=== PATIENT | female | born 1995 | race Caucasian/White ===

== ENCOUNTER → 2018-01-13 17:30 | Outpatient (REF) | payer MEDICAID, SELFPAY ==
[2018-01-19 15:19] LABS: Neisseria gonorrhoeae, NAA Negative (Negative)
== END ==
LOC: LAB 17:30
PROVIDERS: Obstetrics & Gynecology; Visit Provider Nurse Practitioner Obstetrics & Gynecology
DX: Z34.90 Encounter for supervision of normal pregnancy, unspecified, unspecified trimester (principal); Z3A.10 10 weeks gestation of pregnancy
CPT/HCPCS: 87491; 87591

== ENCOUNTER → 2018-02-01 14:57 | Outpatient (CLI) | payer MEDICAID, SELFPAY ==
[2018-02-01 15:20] LABS: Basophils % 0.4 % (0.1-2.0); Eosinophils # 0.1 K/mm3 (0.0-0.4); Eosinophils % 0.8 % (0.1-12.0); Hematocrit 43.8 % (37.0-47.0); Hemoglobin 14.1 g/dL (12.2-16.2); Lymphocytes # 1.3 K/mm3 (0.7-4.5); Lymphocytes % 17.2 K/mm3 (10-50); Mean Corpuscular HGB Conc 32.1 g/dL (31.8-35.4); Mean Corpuscular Hemoglobin 26.9 pg (27.0-31.2); Mean Corpuscular Volume 83.6 fl (81-99); Mean Platelet Volume 8.2 fl (7.4-10.4); Monocytes # 0.4 K/mm3 (0.1-1.0); Neutrophils # 5.9 K/mm3 (1.8-7.8); Neutrophils % 76.7 % (37.0-80.0); Platelet Count 166 K/mm3 (142-424); Red Blood Count 5.24 M/mm3 (4.20-5.40); Red Cell Distribution Width 12.9 % (11.5-17.5); White Blood Count 7.7 K/mm3 (4.8-10.8)
[2018-02-03 08:28] LABS: HIV Screen 4th Generation wRfx Non Reactive (Non Reactive)
[2018-02-03 20:05] LABS: Hepatitis B Surface Antigen Negative (Negative); Hepatitis C Antibody <0.1 s/co ratio (0.0-0.9); Rapid Plasma Reagin Ab Titer Non Reactive (NonRea<1:1); Rubella Antibodies, IgG 1.68 index (Immune >0.99)
== END ==
PROVIDERS: Visit Provider Obstetrics & Gynecology
DX: Z3A.10 10 weeks gestation of pregnancy (principal)
CPT/HCPCS: 36415; 85025; 86592; 86703; 86762; 86850; 87340; 87380; G0432

== ENCOUNTER → 2018-03-28 12:52 | Outpatient (CLI) | payer MEDICAID, SELFPAY ==
--- NOTE | 2018-03-28 12:54 | US_ITS ---
US OB /maternal detail: INDICATION: ITS.REASON: US OB Complete ORDERING PHYSICIAN: Paula Perez MD PATIENT AGE: 22 years TECHNIQUE: ultrasound transabdominal scanning. COMPARISON: No previous relevant studies. FINDINGS: Single viable intrauterine gestation. Cephalic position. Placenta: Posterior placenta grade 1. There is average amount fluid. The cervix appears satisfactory. Closed and measuring 5 cm in length. Complete survey performed and was unremarkable on the submitted images as in PACS. No discrete anomalies identified on survey imaging by technologist. Active fetus. Three-vessel cord with satisfactory umbilical cord insertion. 4- chamber heart noted. Survey of brain & ventricles unremarkable. Face and neck survey unremarkable. Diaphragm and chest views unremarkable. Abdomen: Both kidneys noted and unremarkable. Stomach noted and satisfactory. Spine: Survey of the spine satisfactory with no anomalies identified nor imaged. Both arms and legs noted. Amniotic Fluid: Adequate. Maternal adnexa: No significant findings. Measurements: Average ultrasound age 20w5d. Gestational Age 20w5d. Estimated due date by ultrasound age 0311/03/2017. Estimated weight 364 grams. BPD = 20w3d OFD = 21w5d HC = 20w4d AC = 20w5d FL = 20w5d Growth Percentile= 38 percentile Heart Rate = 143 Cerebellum = 20w6d Humerus = 22w0d HC/AC is 1.17 (1.09-1.26). CI is 73% (70-86%). FL/BPD is 71%. FL/AC is 22%. IMPRESSION: There is a single live fetus in cephalic presentation. Average ultrasound age is 20 weeks and 5 days. All parameters correlate with no obvious anomalies. Please see above for detail
== END ==
PROVIDERS: PCP Nurse Practitioner Family; Visit Provider Obstetrics & Gynecology
DX: Z36.0 Encounter for antenatal screening for chromosomal anomalies (principal)
CPT/HCPCS: 76811

== ENCOUNTER → 2018-06-26 12:43 | Outpatient (CLI) | payer OTHER, SELFPAY ==
--- NOTE | 2018-06-26 12:46 | US_ITS ---
US OB follow up: INDICATION: ITS.REASON: US OB Growth- Large for Dates ORDERING PHYSICIAN: Paula Perez MD PATIENT AGE: 22 years COMPARISON: 03/28/2018 TECHNIQUE: ultrasound transabdominal scanning. . FINDINGS: Single viable intrauterine gestation. Cephalic position. Placenta: Posterior placenta grade . There is average amount fluid. The cervix appears satisfactory. Closed and measuring 4.7 cm in length. Measurements: Average ultrasound age 35 weeks 1 day. Gestational Age 33 weeks 4 days. Estimated due date by ultrasound age 1207/30/2018. Estimated weight 2535 g grams.. This is 81 percentile BPD = 35 weeks 4 days OFD = 37 weeks 3 days HC = 35 weeks 5 days AC = 35 weeks 2 days FL = 33 weeks 4 days Growth Percentile= 81 percentile Heart Rate = 135 HC/AC is 1.01. CI is 78%. FL/BPD is 74%. FL/AC is 21%. IMPRESSION: There is a single live fetus present which is in cephalic presentation. Average ultrasound age is 35 weeks 1 day with an estimated weight of 2535 g which is 81 percentile. No obvious anomalies. All parameters correlate. Please see above for detail
== END ==
PROVIDERS: Visit Provider Obstetrics & Gynecology
DX: O36.60X0 Maternal care for excessive fetal growth, unspecified trimester, not applicable or unspecified (principal)
CPT/HCPCS: 76816

== ENCOUNTER → 2018-07-13 15:07 | Outpatient (CLI) | payer OTHER, SELFPAY | PROVIDERS: Visit Provider Obstetrics & Gynecology | DX: Z34.90 Encounter for supervision of normal pregnancy, unspecified, unspecified trimester (principal) | CPT/HCPCS: 86403 ==

== ENCOUNTER 2018-07-17 00:36 | Outpatient (CLI) | payer OTHER, SELFPAY ==
[2018-07-17 00:49] VITALS: BMI 32.5
[2018-07-17 01:01] VITALS: BP 129/72; PULSE 76; RESP 18; TEMP 36.4; O2SAT 100; BMI 32.5
[2018-07-17 01:24] LABS: Microscopic, Urine URINE MICROSCOPIC (MICROSCOPIC)
[2018-07-17 01:25] LABS: Appearance,Urine CLEAR (Clear); Bilirubin,Urine Negative (Negative); Blood, Urine Negative (Negative); Color,Urine YELLOW (Yellow); Glucose,Urine (UA) Negative (Negative); Ketones,Urine Negative (Negative); Leukocyte Esterase,Urine 1+ (Negative); Nitrate,Urine Negative (Negative); Protein,Urine Negative (Negative); Specific Gravity, Urine 1.015 (1.005-1.030); Urobilinogen,Urine 0.2 EU/dl (0.2)
[2018-07-17 01:55] LABS: Bacteria,Urine 2+ /lpf
== END 2018-07-17 01:55 | disposition home or self-care (01) ==
LOC: OBOUT 00:40 → OB 00:41
PROVIDERS: Referring Provider Obstetrics & Gynecology; Visit Provider Obstetrics & Gynecology
DX: O26.893 Other specified pregnancy related conditions, third trimester (principal); Z3A.35 35 weeks gestation of pregnancy; M79.89 Other specified soft tissue disorders; R60.0 Localized edema
CPT/HCPCS: 59025; 81001; 87086

== ENCOUNTER → 2018-07-26 10:50 | Outpatient (CLI) | payer OTHER, SELFPAY ==
[2018-07-26 11:43] LABS: Basophils % 0.3 % (0.1-2.0); Eosinophils # 0.1 K/mm3 (0.0-0.4); Eosinophils % 0.7 % (0.1-12.0); Hematocrit 34.4 % (37.0-47.0); Hemoglobin 11.1 g/dL (12.2-16.2); Lymphocytes # 2.3 K/mm3 (0.7-4.5); Lymphocytes % 19.6 % (10-50); Mean Corpuscular HGB Conc 32.4 g/dL (31.8-35.4); Mean Corpuscular Hemoglobin 26.5 pg (27.0-31.2); Mean Corpuscular Volume 81.9 fl (81-99); Mean Platelet Volume 10.4 fl (7.4-10.4); Monocytes # 0.5 K/mm3 (0.1-1.0); Monocytes % 4.3 % (1.7-9.3); Neutrophils # 8.8 K/mm3 (1.8-7.8); Neutrophils % 75.1 % (37.0-80.0); Platelet Count 171 K/mm3 (142-424); Red Cell Distribution Width 14.2 % (11.5-17.5); White Blood Count 11.7 K/mm3 (4.8-10.8)
[2018-07-26 12:12] LABS: Activated Partial Thrombo Time 22.9 seconds (23.6-34.0); Fibrinogen 486 mg/dL (204-500); INR 0.91 (0.9-1.1); Prothrombin Time 9.4 seconds (9.4-11.8)
[2018-07-26 12:49] LABS: D-Dimer 1920 ng/mL (0-400)
[2018-07-26 14:25] LABS: Alanine Aminotransferase 17 U/L (12-78); Anion Gap 15.1 mEq/L (5-15); Aspartate Amino Transferase 15 U/L (15-37); Blood Urea Nitrogen 4 mg/dL (7-18); Calcium 8.8 mg/dL (8.5-10.1); Carbon Dioxide 23 mmol/L (21.0-32.0); Chloride 105 mmol/L (98-107); Creatinine,Serum 0.62 mg/dL (0.55-1.02); Estimated Glomerular Filt Rate 120 ml/min (>60); GFR (African American) 146 ML/MIN (>60); Glucose 82 mg/dL (74-106); Potassium 3.1 mmoL/L (3.5-5.1); Sodium 140 mmol/L (136-145); Uric Acid 4.3 mg/dL (2.6-7.2)
== END ==
PROVIDERS: Visit Provider Obstetrics & Gynecology
DX: Z34.90 Encounter for supervision of normal pregnancy, unspecified, unspecified trimester (principal)
CPT/HCPCS: 36415; 80048; 84450; 84460; 84550; 85025; 85378; 85384; 85610; 85730

== ENCOUNTER 2018-07-28 11:10 | Inpatient (IN) ==
[2018-07-28 15:16] LABS: Microscopic, Urine URINE MICROSCOPIC (MICROSCOPIC)
[2018-07-28 15:18] LABS: Appearance,Urine CLEAR (Clear); Bilirubin,Urine Negative (Negative); Blood, Urine Negative (Negative); Color,Urine YELLOW (Yellow); Glucose,Urine (UA) Negative (Negative); Ketones,Urine Negative (Negative); Leukocyte Esterase,Urine 1+ (Negative); Protein,Urine Negative (Negative); Urobilinogen,Urine 0.2 EU/dl (0.2)
[2018-07-28 15:35] LABS: Bacteria,Urine 2+ /lpf
[2018-07-28 15:43] LABS: Basophils % 0.2 % (0.1-2.0); Eosinophils # 0.1 K/mm3 (0.0-0.4); Eosinophils % 0.4 % (0.1-12.0); Hematocrit 33.7 % (37.0-47.0); Hemoglobin 10.9 g/dL (12.2-16.2); Lymphocytes # 1.7 K/mm3 (0.7-4.5); Lymphocytes % 14.7 % (10-50); Mean Corpuscular HGB Conc 32.2 g/dL (31.8-35.4); Mean Corpuscular Hemoglobin 26.5 pg (27.0-31.2); Mean Corpuscular Volume 82.3 fl (81-99); Mean Platelet Volume 11.9 fl (7.4-10.4); Monocytes # 0.5 K/mm3 (0.1-1.0); Monocytes % 4.6 % (1.7-9.3); Neutrophils # 9.3 K/mm3 (1.8-7.8); Neutrophils % 80.1 % (37.0-80.0); Platelet Count 148 K/mm3 (142-424); Red Blood Count 4.09 M/mm3 (4.20-5.40); Red Cell Distribution Width 14.2 % (11.5-17.5); White Blood Count 11.6 K/mm3 (4.8-10.8)
[2018-07-28 15:56] LABS: Anion Gap 14.8 mEq/L (5-15)
[2018-07-28 15:58] LABS: Potassium 2.8 mmoL/L (3.5-5.1)
[2018-07-28 15:59] LABS: Activated Partial Thrombo Time 22.9 seconds (23.6-34.0); INR 0.91 (0.9-1.1); Prothrombin Time 9.4 seconds (9.4-11.8)
[2018-07-28 16:42] LABS: Patient Weight,Urine 192.5946 lbs
[2018-07-28 17:37] LABS: Creatinine Clearance Urine 136.1 mL/min (25-115)
[2018-07-29 11:27] LABS: Albumin Level 2.1 gm/dL (3.4-5.0); Albumin/Globulin Ratio 0.6 (1.1-1.8); Anion Gap 14.2 mEq/L (5-15); Bilirubin,Total 0.3 mg/dL (0.2-1.0); Globulin 3.5 gm/dl (1.3-3.2); Potassium 3.2 mmoL/L (3.5-5.1); Total Protein,Serum 5.6 gm/dL (6.4-8.2)
--- NOTE | 2018-07-29 16:40 | History & Physical Report ---
OB - H&P: HPI Antepartum - History of Present Illness Chief complaint: Hypertension History of present illness: 22 yo G1 presented @ 38 1/7 after checking BP at outpatient pharmacy and obtaining elevated readings 140-150/90s Denied HESS, visual changes or epigastric/RUQ pain BP had been elevated in office 2 days earlier and she had been instructed to collect 24 hr urine and have PIH labs drawn; urine result was still pending at time of presentation to triage BP elevated 140-150/80-90 in triage upon presentation She was admitted for observation and monitoring while awaiting lab results, and started on labetolol 100 BID No new complaints today; BP has been improved but still occasionally elevated on labetolol Urine protein >400mg and she is advised that induction of labor is indicated at this gestational age with diagnosis of mild preeclampsia Cervix 2/80% - History of Present care: good care Obstetrical complications: preeclampsia [facility] History I have reviewed the patient's past medical history: Yes Medical History: Denies:: Anxiety, Depression, Diabetes Mellitus Type 1, Hypertension, Migraine, MRSA, Seizures Other Surgeries: Yes: Appendectomy, Cholecystectomy. No: Amputation: No Fractures: No - *Social History Smoking Status: Never smoker Alcohol Intake: never Substance Use Type: denies use - Psychiatric History Pschychiatric History:: Denies:: Anxiety, Depression *Family Hx:: No significant family history Para: 0 Review of Systems - Review of Systems CONSTITUTIONAL: no fever/chills HEENT: no visual changes PULMONARY: no shortness of breath or difficulty breathing CV: no racing heart, palpitations or chest pain ABD: no abdominal pain, N/V : intermittent contractions SKIN: no new rash or skin lesions EXT: + LE edema NEURO: no HESS PSYCH: no current anxiety/depression OB: normal FM Meds Home Medications Medication Instructions Recorded Confirmed Type multivitamin with minerals-folic 200 mcg PO DAILY 01/13/18 07/29/18 History acid 200 mcg chewable tablet Allergies Allergy/AdvReac Type Severity Reaction Status Date / Time No Known Allergies Allergy Verified 07/26/18 08:51 OB - H&P: Exam - Physical Exam Vital signs: Temp Pulse Resp BP Pulse Ox 98.4 F 97 H 20 145/95 H 100 07/28/18 15:30 07/28/18 15:30 07/28/18 15:30 07/28/18 15:30 07/28/18 15:30 Narrative: CONSTITUTIONAL: no acute distress HEENT: mucous membranes moist PULMONARY: breathing unlabored without audible wheezes CV: no tachycardia or visible JVD; normal LE peripheral pulses ABD: soft, NT/ND, no guarding : cervix 2/80% SKIN: no visible rash or lesions EXT: 2+ edema LEs NEURO: alert/oriented, no altered mental status. 2+ DTRs PSYCH: appropriate mood and demeanor without visible anxiety/depression OB - Results - Labs Labs: BMP 07/28/18 07/29/18 15:33 11:05 Sodium 141 Potassium 3.2 L Chloride 106 Carbon Dioxide 24 BUN 4 L D Creatinine 0.56 0.63 Glucose 90 Calcium 9.0 Liver Function 07/29/18 Range/Units 11:05 Total Bilirubin 0.3 (0.2-1.0) mg/dL AST 9 L D (15-37) U/L ALT 15 (12-78) U/L Alkaline Phosphatase 138 H (46-116) U/L Albumin 2.1 L (3.4-5.0) gm/dL - Imaging and Cardiology nst Status: image reviewed by me Additional comments: NST: Basline: 140 Variability: moderate Accelerations: yes Decelerations: no Impression: Reactive, Category 1 OB - A/P Antepartum (1) with 38 completed weeks gestation Current visit: Yes Status: Acute (2) Pre-eclampsia, mild Current visit: Yes Status: Acute (3) LGA (large for gestational age) fetus Problem details: 81% Current visit: No Status: Acute - Additional Plan Additional Information:: Admission with IOL Begin Pitocin protocol 4am Epidural at patient request for pain management in labor Continue monitoring BP NST 2x/day currently Continuous monitoring at onset of pitocin induction
--- NOTE | 2018-07-30 18:32 | Progress Note ---
Labor Note - Subjective: Date: 07/30/18 Time: 17:30 irregular contractions Comment:: mild - Objective: NST:: Reactive Contractions:: infrequent Cervical Dilation:: 2 Effacement:: 70% Station: -2 Membranes: intact Comment:: Max catheter placed through cervix into lower uterus and filled with 50cc normal saline Pulled taught against cervix and taped to patient's inner thigh - Fetus: Monitoring?: Yes monitoring type:: External - Assessment: Patient Problems: All Active Problems with 38 completed weeks gestation (Acute) Pre-eclampsia, mild (Acute) LGA (large for gestational age) fetus (Acute) (Acute) - Plan: Comment:: Continue max catheter for mechanical distention, in combination with cervidil prostaglandin ripening overnight plan to resume pitocin augmentation in am
--- NOTE | 2018-07-31 08:41 | Progress Note ---
Labor Note - Subjective: Date: 07/31/18 Time: 08:46 irregular contractions Comment:: Gonsalves bulb came out 2am Cervix 4cm this am; pitocin restarted and currently at 9mU - Objective: NST:: Reactive Contractions:: every 4-5 minutes Cervical Dilation:: 4 Effacement:: 80% Station: -1 Membranes: ruptured Comment:: AROM with clear fluid; IUPC placed without difficulty - Fetus: monitoring type:: Internal and External - Assessment: Labor progressing?: Yes Patient Problems: All Active Problems with 38 completed weeks gestation (Acute) Pre-eclampsia, mild (Acute) LGA (large for gestational age) fetus (Acute) (Acute) - Plan: Comment:: Continue pitocin augmentation S/P AROM status reassuring; continue continuous monitoring Epidural at request for pain management Anticipate
--- NOTE | 2018-07-31 09:18 | Progress Note ---
[facility] Anesthesia Checklist - Structural Data Admitted From: Inpatient Planned Operative Procedure/s: labor epidural Consent for Planned Operative Procedure(s) Verified: Yes - Airway Assessment C-Spine Mobility Assessed: Yes TMJ Mobility Assessed: Yes Dentition: Good Dentition - Neurological Assessment Level of Consciousness: Awake, Alert, Appropriate - Anesthesia Plan Anesthesia Risk discussed: Yes Anesthesia Plan: Verified ASA Class: II Anesthesia Type: Epidural [facility] History I have reviewed the patient's past medical history: Yes Medical History: Denies:: Anxiety, Depression, Diabetes Mellitus Type 1, Hypertension, Migraine, MRSA, Seizures Other Surgeries: Yes: Appendectomy, Cholecystectomy. No: Amputation: No Fractures: No - *Social History Smoking Status: Never smoker Alcohol Intake: never Substance Use Type: denies use - Psychiatric History Pschychiatric History:: Denies:: Anxiety, Depression *Family Hx:: No significant family history Para: 0
--- NOTE | 2018-07-31 17:27 | Procedure Note ---
- Delivery Note Delivery Date:: 07/31/18 Delivery Time:: 17:00 Anesthesia Type: Epidural Was labor medically induced?: Yes Induction method: per pitocin protocol Gestational age (weeks): 38 delivered prior to 39 weeks?: Yes Justification for early elective delivery:: Pre-eclampsia Gender: Male at 1 minute: 6 at 5 minutes: 7 Delivery Procedure:: Spontaneous vaginal delivery of liveborn male infant over intact perineum. Apgars: 6 & 7 Delivery uncomplicated; no nuchal cord or shoulder dystocia with delivery placed immediately on maternal abdomen for nursing assessment with intention of NATALIE immediately after umbilical cord clamped/cut, however infant was taken immediately to warmer for nursing assessment after cord cut due to decreased tone & color Placenta spontaneously expressed and examined; noted to be complete/intact Vulva, vagina, and cervix inspected; bilateral periurethral lacerations noted and repaired with 3-0 vicryl for hemostasis. EBL: 300cc All sponge/needle/instrument counts correct at conclusion of procedure Disposition: Mom/baby stable to recovery in LDRP Laceration:: labial Placental Delivery Description: Spontaneous
[2018-08-01 06:34] LABS: Hematocrit 27.9 % (37.0-47.0); Hemoglobin 9.4 g/dL (12.2-16.2)
--- NOTE | 2018-08-01 15:38 | Progress Note ---
Internal Medicine - PN: Subj *Date: 08/01/18 *Time: 15:35 Interval history: PPD #1 No complaints Stan reg diet, ambulating and voiding without difficulty Asymptomatic with acute on chronic anemia (10.9 admission, 9.4 PPD #1) BP intermittently mildly elevated but stable Pain control sufficient Exam Vital signs and Labs for Last 24 Hours: Temp Pulse Resp BP Pulse Ox 98.4 F 97 H 20 145/95 H 100 07/28/18 15:30 07/28/18 15:30 07/28/18 15:30 07/28/18 15:30 07/28/18 15:30 Laboratory Results - last 24 hr 08/01/18 06:04: Hgb 9.4 L, Hct 27.9 L Narrative: CONSTITUTIONAL: no acute distress HEENT: mucous membranes moist PULMONARY: breathing unlabored without audible wheezes CV: no tachycardia or visible JVD; normal LE peripheral pulses ABD: soft, NT/ND, no guarding : fundus firm at/below umbilicus SKIN: no visible rash or lesions EXT: 1+ edema LEs NEURO: alert/oriented, no altered mental status PSYCH: appropriate mood and demeanor without visible anxiety/depression Assessment and Plan (1) with 38 completed weeks gestation Current visit: Yes Status: Acute Category: Medical Code(s): Z3A.38 - 38 weeks gestation of (2) Vaginal delivery Current visit: Yes Status: Acute Category: Medical Code(s): O80 - Encounter for full-term uncomplicated delivery (3) Pre-eclampsia, mild Current visit: Yes Status: Acute Category: Medical Code(s): O14.00 - Mild to moderate pre-eclampsia, unspecified trimester (4) LGA (large for gestational age) fetus Problem details: 81% Current visit: No Status: Acute Category: Medical (5) Anemia complicating Current visit: Yes Status: Acute Category: Medical Code(s): O99.019 - Anemia complicating , unspecified trimester (6) Anemia due to acute blood loss Current visit: Yes Status: Acute Category: Medical Code(s): D62 - Acute posthemorrhagic anemia - Assessment and plan all Dx Assessment and Plan for all problems:: Continue routine care Hold BP meds at this time Supplemental FeSO4 for anemia Anticipate discharge tomorrow
[2018-08-02 11:20] VITALS: BP 137/86
--- NOTE | 2018-08-02 12:47 | Discharge Summary ---
DS: Providers Date of admission: 07/28/18 16:31 Primary care physician: Referral Provider, Attending physician on admission: Paula Perez Attending physician on discharge: Paula Perez Anticipated date of discharge: 08/02/18 DS: Diagnosis - Discharge Diagnosis (1) with 38 completed weeks gestation Status: Acute (2) Vaginal delivery Status: Acute (3) Pre-eclampsia, mild Status: Acute (4) LGA (large for gestational age) fetus Status: Acute Problem details: 81% (5) Anemia complicating Status: Acute (6) Anemia due to acute blood loss Status: Acute DS: Medications - Discharge Medications Prescriptions: New Ibuprofen [Motrin 400mg tablet] 400 mg PO Q4HP PRN tablet PRN Reason: Moderate Pain Continue multivitamin with minerals-folic acid 200 mcg chewable tablet 200 mcg PO DAILY OB - DS: Summary Hospital course: Ms. Craig is a 22 year old female Time spent discussing smoking cessation with patient: 3 to 10 minutes - Peripartum Data Delivery method: spontaneous vaginal delivery Laceration description: Periurethral - 1st Degree complications: none - Status at Discharge Cognitive/behavioral status at discharge: normal/appropriate Functional status at discharge: independent ambulation - Time Spent with Patient Total time spent providing and/or coordinating discharge services: Less than 30 minutes Exam Vital signs and Labs for Last 24 Hours: Temp Pulse Resp BP Pulse Ox 98.2 F 79 20 137/86 100 08/02/18 08:00 08/02/18 08:00 08/02/18 08:00 08/02/18 08:00 07/28/18 15:30 Narrative: CONSTITUTIONAL: no acute distress HEENT: mucous membranes moist PULMONARY: breathing unlabored without audible wheezes CV: no tachycardia or visible JVD; normal LE peripheral pulses ABD: soft, NT/ND, no guarding : fundus firm at/below umbilicus SKIN: no visible rash or lesions EXT: 1+ edema LEs NEURO: alert/oriented, no altered mental status PSYCH: appropriate mood and demeanor without visible anxiety/depression Discharge Plan - Patient Discharge Instructions ACTIVITY: Continue current activity DIET: regular diet Patient Instructions: Depression, Hemorrhage, [facility] Post Discharge Instructions - Follow up Plan Follow up with: Paula Perez MD [Staff Physician] - 09/13/18 10:30 am Home Medications: Home Medications Medication Instructions Recorded Confirmed Type multivitamin with minerals-folic 200 mcg PO DAILY 01/13/18 07/29/18 History acid 200 mcg chewable tablet Prescriptions/Medication Reconciliation: No Action multivitamin with minerals-folic acid 200 mcg chewable tablet 200 mcg PO DAILY
== END 2018-08-02 13:40 | disposition home or self-care (01) ==
LOC: LAB 11:10 → OB 11:10 → OBSVTOIN 16:31
PROVIDERS: ADMIT Obstetrics & Gynecology; ATTEND Obstetrics & Gynecology

== ENCOUNTER → 2018-09-13 15:13 | Outpatient (CLI) | payer OTHER, SELFPAY ==
[2018-09-13 15:42] LABS: HCG,Quantitative 0 mIU/mL
== END ==
PROVIDERS: Visit Provider Obstetrics & Gynecology
DX: Z32.00 Encounter for pregnancy test, result unknown (principal); Z39.2 Encounter for routine postpartum follow-up
CPT/HCPCS: 36415; 84702

== ENCOUNTER → 2019-03-15 15:24 | Outpatient (CLI) | payer OTHER, SELFPAY ==
--- NOTE | 2019-03-15 15:31 | US_ITS ---
US transvaginal HISTORY: Pelvic pain and cramping, painful intercourse ITS.REASON: US T/V- Pelvic Pain ORDERING PHYSICIAN: Paula Perez MD PATIENT AGE: 23 years Comparison: None FINDINGS: The uterus is 6 x 4 x 5 cm with a combined endometrial thickness of 7 mm. The uterus is retroverted. No obvious uterine mass. The left ovary is 3 x 1.8 cm with a volume of 9 mL's. There are multiple small follicles present. The right ovary is 3.6 x 2.3 cm with a volume of 13 mL's. Multiple small follicles are present. No cul-de-sac fluid is evident. IMPRESSION: Polycystic appearance of the ovaries otherwise negative pelvic ultrasound
== END ==
PROVIDERS: Visit Provider Obstetrics & Gynecology
DX: R10.2 Pelvic and perineal pain (principal)
CPT/HCPCS: 76830

== ENCOUNTER → 2019-05-22 16:13 | Outpatient (CLI) | payer OTHER, SELFPAY ==
[2019-05-22 17:21] LABS: HCG,Quantitative 50117 mIU/mL
== END ==
PROVIDERS: Visit Provider Nurse Practitioner Obstetrics & Gynecology
DX: Z34.90 Encounter for supervision of normal pregnancy, unspecified, unspecified trimester (principal)
CPT/HCPCS: 36415; 84702

== ENCOUNTER → 2019-06-20 17:34 | Outpatient (CLI) | payer OTHER, SELFPAY ==
[2019-06-20 19:22] LABS: Basophils % 0.2 % (0.1-2.0); Eosinophils % 0.6 % (0.1-12.0); Hematocrit 42.5 % (37.0-47.0); Lymphocytes # 1.7 K/mm3 (0.7-4.5); Mean Corpuscular Hemoglobin 27.6 pg (27.0-31.2); Mean Corpuscular Volume 83.6 fl (81-99); Mean Platelet Volume 8.8 fl (7.4-10.4); Monocytes # 0.3 K/mm3 (0.1-1.0); Monocytes % 3.8 % (1.7-9.3); Neutrophils # 5.8 K/mm3 (1.8-7.8); Neutrophils % 74.4 % (37.0-80.0); Platelet Count 199 K/mm3 (142-424); Red Blood Count 5.08 M/mm3 (4.20-5.40); Red Cell Distribution Width 14.7 % (11.5-17.5); White Blood Count 7.8 K/mm3 (4.8-10.8)
[2019-06-22 08:28] LABS: HIV Screen 4th Generation wRfx Non Reactive (Non Reactive); Hepatitis B Surface Antigen Negative (Negative); Hepatitis C Antibody <0.1 s/co ratio (0.0-0.9); Rubella Antibodies, IgG 2.03 index (Immune >0.99)
[2019-06-22 17:16] LABS: Rapid Plasma Reagin Ab Titer Non Reactive (NonRea<1:1)
== END ==
PROVIDERS: Visit Provider Obstetrics & Gynecology
DX: Z34.90 Encounter for supervision of normal pregnancy, unspecified, unspecified trimester (principal)
CPT/HCPCS: 36415; 85025; 86592; 86703; 86762; 86850; 87340; 87380; G0432

== ENCOUNTER → 2019-06-27 16:56 | Outpatient (CLI) | payer OTHER, SELFPAY | PROVIDERS: Visit Provider Obstetrics & Gynecology | DX: Z34.90 Encounter for supervision of normal pregnancy, unspecified, unspecified trimester (principal) | CPT/HCPCS: 36415 ==

== ENCOUNTER → 2019-08-23 12:48 | Outpatient (CLI) | payer OTHER, SELFPAY ==
--- NOTE | 2019-08-23 12:48 | US_ITS ---
PROCEDURE: US OB /MATERNAL DETAIL CLINICAL INDICATION: US OB Complete COMPARISON: [facility] US OB follow up from 06/26/2018 FINDINGS: Single viable intrauterine gestation. Cephalic position. Placenta: Anteriorplacenta grade 1. There is average amount fluid. The cervix appears satisfactory. Closed and measuring 3 cm in length. Complete survey performed and was unremarkable on the submitted images as in PACS. No discrete anomalies identified on survey imaging by technologist. Active fetus. Three-vessel cord with satisfactory umbilical cord insertion. 4- chamber heart noted. Survey of brain & ventricles Unremarkable. Face and neck survey unremarkable. Diaphragm and chest views unremarkable. Abdomen: Both kidneys noted and unremarkable. Stomach noted and satisfactory. Spine: Survey of the spine satisfactory with no anomalies identified nor imaged. Both arms and legs noted. Amniotic Fluid: Adequate. Maternal adnexa: No significant findings. Measurements: Average ultrasound age 19weeks 6days. Gestational Age 19 weeks 3 days Estimated due date by ultrasound age 0501/11/2020. Estimated weight 297g BPD = 20weeks 2days OFD = 20 weeks 6 days HC = 19weeks 6days AC = 19weeks 5days FL = 19weeks 2days Growth Percentile= 51% Heart Rate = 143bpm Cerebellum = 20weeks Humerus = 19weeks 3days HC/AC is 1.21 CI is 0.76 FL/BPD is 0.63 FL/AC is 0.21 IMPRESSION: There is a single live fetus which is in cephalic presentation with an average ultrasound age of 19 weeks 6 days. All parameters correlate with no obvious anomalies. Please see above for detail Dictated by: Dougie Murrell MD 08/23/2019 18:43 Electronically signed by Dougie Murrell MD in [facility] 08/23/2019 18:43
== END ==
PROVIDERS: Visit Provider Obstetrics & Gynecology
DX: Z36.0 Encounter for antenatal screening for chromosomal anomalies (principal)
CPT/HCPCS: 76811

== ENCOUNTER → 2019-10-01 08:11 | Outpatient (CLI) | payer OTHER, SELFPAY ==
[2019-10-01 08:42] LABS: Glucose,Fasting 87 mg/dL (60-105)
[2019-10-01 10:08] LABS: Glucose 1 Hour 141 mg/dL (74-106)
== END ==
PROVIDERS: Visit Provider Obstetrics & Gynecology
DX: Z34.90 Encounter for supervision of normal pregnancy, unspecified, unspecified trimester (principal)
CPT/HCPCS: 36415; 82951

== ENCOUNTER → 2019-12-11 16:50 | Outpatient (CLI) | payer OTHER, SELFPAY | PROVIDERS: Visit Provider Obstetrics & Gynecology | DX: Z34.90 Encounter for supervision of normal pregnancy, unspecified, unspecified trimester (principal) | CPT/HCPCS: 86403 ==

== ENCOUNTER 2020-01-01 05:14 | Inpatient (IN) | payer BC, MEDICAID, SELFPAY ==
[2020-01-01 05:23] VITALS: BMI 31.0
[2020-01-01 06:02] LABS: Microscopic, Urine URINE MICROSCOPIC (MICROSCOPIC)
[2020-01-01 06:09] LABS: Basophils % 0.2 % (0.1-2.0); Eosinophils % 0.4 % (0.1-12.0); Hematocrit 30.2 % (37.0-47.0); Hemoglobin 9.8 g/dL (12.2-16.2); Lymphocytes # 1.7 K/mm3 (0.7-4.5); Lymphocytes % 19.9 % (10-50); Mean Corpuscular HGB Conc 32.3 g/dL (31.8-35.4); Mean Corpuscular Hemoglobin 25.6 pg (27.0-31.2); Mean Corpuscular Volume 79.2 fl (81-99); Mean Platelet Volume 9.8 fl (7.4-10.4); Monocytes # 0.4 K/mm3 (0.1-1.0); Monocytes % 4.7 % (1.7-9.3); Neutrophils # 6.5 K/mm3 (1.8-7.8); Neutrophils % 74.9 % (37.0-80.0); Platelet Count 172 K/mm3 (142-424); Red Blood Count 3.82 M/mm3 (4.20-5.40); Red Cell Distribution Width 14.9 % (11.5-17.5); White Blood Count 8.6 K/mm3 (4.8-10.8)
[2020-01-01 06:16] LABS: Appearance,Urine CLEAR (Clear); Bilirubin,Urine Negative (Negative); Blood, Urine Negative (Negative); Color,Urine YELLOW (Yellow); Glucose,Urine (UA) Negative (Negative); Ketones,Urine Negative (Negative); Leukocyte Esterase,Urine 1+ (Negative); Nitrate,Urine Negative (Negative); Protein,Urine Negative (Negative); Specific Gravity, Urine 1.015 (1.005-1.030); Urobilinogen,Urine 0.2 EU/dl (0.2)
[2020-01-01 06:30] LABS: Barbiturates Screen,Urine Negative ng/ml (<200); Benzodiazepines Screen,Urine Negative ng/ml (<200)
[2020-01-01 06:31] LABS: Amphetamine/Metha Screen,Urine Negative ng/ml (<1000)
[2020-01-01 06:32] LABS: Cannabinoid Screen,Urine Negative ng/ml (<50); Cocaine Screen,Urine Negative ng/ml (<300)
[2020-01-01 06:33] LABS: Methadone Screen,Urine Negative ng/ml (<300); Opiate Screen,Urine Negative ng/ml (<300)
[2020-01-01 06:34] LABS: Phencyclidine Screen,Urine Negative ng/ml (<25)
[2020-01-01 06:40] VITALS: BP 144/95; PULSE 66; RESP 18; TEMP 36.7; O2SAT 98; BMI 31.0
[2020-01-01 06:42] LABS: Amorphous Sediment,Urine Trace /lpf; Bacteria,Urine 1+ /lpf
--- NOTE | 2020-01-01 09:03 | HMH.PHAINT ---
MEDICATION RECONCILIATION COMPLETED ON PATIENT USING EXTERNAL FILL HISTORY FROM PHARMACY. -WILLIE HWANG, KAMID
--- NOTE | 2020-01-01 09:38 | P.PN_ITS ---
[facility] Anesthesia Checklist - Patient Identification Patient Identification: Arm Band, Verbal (Name & ) - Structural Data Admitted From: Home Planned Operative Procedure/s: Labor epidural Consent for Planned Operative Procedure(s) Verified: Yes Verified Documents: Surgical Consent, History and Physical - Chart Verification Results Verified: CBC, BMP - Additional verifications Patient : Yes Anesthesia Reactions: No Hx Blood Transfusions: No Blood Transfusion Reaction: No - Airway Assessment C-Spine Mobility Assessed: Yes TMJ Mobility Assessed: Yes Dentition: Good Dentition - Neurological Assessment Level of Consciousness: Awake, Alert, Appropriate, Follows Commands Hx Seizures: No Numbness or tingling in extremities: No - Anesthesia Plan Anesthesia Risk discussed: Yes Anesthesia Plan: Verified ASA Class: II Anesthesia Type: Epidural [facility] History I have reviewed the patient's past medical history: Yes Medical History: Denies:: Anxiety, Cancer, Depression, Diabetes Mellitus Type 1, Diabetes Mellitus Type 2, Hypertension, Internal Pacemaker, Migraine, MRSA, Seizures *Have you ever received a pneumonia vaccine?: No *Have you received a flu vaccine this season?: Yes (05/2019) Other Medical History: Denies: Blood Transfusion Reaction Anesthesia experience/problems:: none Other Surgeries: Yes: Appendectomy, Cholecystectomy, Diagnostic Lap. No: C-se ction, Pacemaker Amputation: No Fractures: No - *Social History Smoking Status: Never smoker Alcohol Intake: never Substance Use Type: denies use *Occupational Status:: employed Housing: house *Travel in the last 8 weeks: None - Psychiatric History Pschychiatric History:: Denies:: Anxiety, Depression Family Hx:: No significant family history Para: 1
--- NOTE | 2020-01-01 14:06 | CARE MANAGER ---
Contacted [facility] to see if authorization was required. Could not get a payroll representative on the phone as it said the member ID was not recognized. Attempted to fax for authorization but fax number was not working. According to provider manual it states precertification is not required for maternity admissions, including . RHONA Brunner
--- NOTE | 2020-01-01 15:51 | HMH.LABNOT ---
Labor Note - Subjective: Date: 01/01/20 Time: 09:51 Comment:: IOL 38 wks gestational hypertension regular contractions, comfortable with epidural NST reactive AROM, clear fluid IUPC placed without difficulty or complication - Assessment: Patient Problems: All Active Problems Anemia complicating (Acute) Gestational hypertension (Acute) 38 weeks gestation of (Acute) URI (upper respiratory infection) (Acute) Pain, dental (Acute) Hypertension affecting (Acute) Hemorrhoids during (Acute) Nausea and vomiting during (Acute) (Acute) Obstructed fallopian tubes (Acute) Endometriosis determined by laparoscopy (Acute) Polycystic ovaries (Acute) PCB (post coital bleeding) (Acute) - Plan: Comment:: continue pitocin augmentation Continuous monitoring Anticipate
--- NOTE | 2020-01-01 16:01 | HMH.DN ---
- Delivery Note Delivery Date:: 01/01/20 Delivery Time:: 16:02 Anesthesia Type: Epidural Was labor medically induced?: Yes Induction method: per pitocin protocol Gestational age (weeks): 38 delivered prior to 39 weeks?: Yes Justification for early elective delivery:: Benign Hypertension Gender: Male at 1 minute: 8 at 5 minutes: 9 Delivery Procedure:: Spontaneous vaginal delivery of liveborn male infant over intact perineum. Delivery uncomplicated No nuchal cord or shoulder dystocia with delivery placed in NATALIE with mother immediately after umbilical cord clamped/cut, with standard nursing assessment performed Infant Apgars: 8 & 9 Placenta spontaneously expressed and examined; noted to be complete/intact. Vulva, vagina, and cervix inspected; left labial laceration repaired with 3-0 vicryl EBL: 300 cc All sponge/needle/instrument counts correct at conclusion of procedure Disposition: Mom/baby stable to recovery in LDRP Laceration:: labial Placental Delivery Description: Spontaneous
[2020-01-02 05:34] LABS: Hematocrit 28.8 % (37.0-47.0); Hemoglobin 9.4 g/dL (12.2-16.2)
--- NOTE | 2020-01-02 10:45 | HMH.ACPN2 ---
Internal Medicine - PN: Subj *Date: 01/02/20 *Time: 10:45 Interval history: PPD #1 no complaints lochia less than menses tolerating regular diet ambulating and voiding without difficulty Exam Vital signs and Labs for Last 24 Hours: Temp Pulse Resp BP Pulse Ox 98.1 F 66 18 144/95 H 98 01/01/20 06:40 01/01/20 06:40 01/01/20 06:40 01/01/20 06:40 01/01/20 06:40 Laboratory Results - last 24 hr 01/02/20 04:50: Hgb 9.4 L, Hct 28.8 L I & O for Last 24 hours: Intake & Output 12/30/19 12/31/19 01/01/20 01/02/20 11:59 11:59 11:59 11:59 Weight 181 lb Microbiology Reports for the Last 24 Hours: Microbiology 01/01/20 05:24 Urine,Clean Catch Urine Culture - Preliminary NO GROWTH AFTER 24 HOURS Narrative: CONSTITUTIONAL: no acute distress HEENT: mucous membranes moist PULMONARY: breathing unlabored without audible wheezes CV: no tachycardia or visible JVD; normal LE peripheral pulses ABD: soft, NT/ND, no guarding : fundus firm at/below umbilicus SKIN: no visible rash or lesions EXT: 1+ edema LEs NEURO: alert/oriented, no altered mental status PSYCH: appropriate mood and demeanor without visible anxiety/depression Assessment and Plan (1) 38 weeks gestation of Current visit: Yes Status: Acute Category: Medical Code(s): Z3A.38 - 38 weeks gestation of (2) Anemia complicating Current visit: Yes Status: Acute Category: Medical Code(s): O99.019 - Anemia complicating , unspecified trimester (3) Gestational hypertension Current visit: Yes Status: Acute Category: Medical Code(s): O13.9 - Gestational [-induced] hypertension without significant proteinuria, unspecified trimester - Assessment and plan all Dx Assessment and Plan for all problems:: PPD #1 Routine care Anticipate discharge tomorrow
--- NOTE | 2020-01-03 10:23 | HMH.DCSUM ---
General - General Admission date:: 01/01/20 Discharge date: 01/03/20 HPI HPI: PPD #2 No complaints Tolerating regular diet, ambulating and voiding declines pain medication at discharge Hospital Course Rhogam Administration: Not Indicated Objective Vital signs: Temp Pulse Resp BP Pulse Ox 98.1 F 66 18 144/95 H 98 01/01/20 06:40 01/01/20 06:40 01/01/20 06:40 01/01/20 06:40 01/01/20 06:40 Narrative: CONSTITUTIONAL: no acute distress HEENT: mucous membranes moist PULMONARY: breathing unlabored without audible wheezes CV: no tachycardia or visible JVD; normal LE peripheral pulses ABD: soft, NT/ND, no guarding : fundus firm at/below umbilicus SKIN: no visible rash or lesions EXT: 1+ edema LEs NEURO: alert/oriented, no altered mental status PSYCH: appropriate mood and demeanor without visible anxiety/depression DS: Diagnosis - Discharge Diagnosis (1) 38 weeks gestation of Status: Acute (2) Anemia complicating Status: Acute (3) Gestational hypertension Status: Acute Discharge Plan - Patient Discharge Instructions ACTIVITY: Continue current activity DIET: regular diet Patient Instructions: DI for Hemorrhage, Pre-eclampsia, Depression, Hemorrhage, DI for Labor and Delivery, Vaginal , [facility] Post Discharge Instructions - Follow up Plan Follow up with: Paula Perez MD [Staff Physician] - 02/12/20 11:00 am Disposition: Home, Self-Longterm Medications: Home Medications Medication Instructions Recorded Confirmed Type prenat.vits,bj,fpq-hmnc-yxesx 1 tab PO DAILY 06/27/19 01/01/20 History Promethazine HCl 12.5 mg PO TIDP PRN 01/01/20 01/01/20 History Prescriptions/Medication Reconciliation: New Ibuprofen [Motrin 400mg tablet] 800 mg PO Q6HP PRN tablet PRN Reason: moderate pain Acetaminophen [Acetaminophen 325mg tab] 650 mg PO Q4HP PRN tablet PRN Reason: Mild Pain Continued prenat.vits,bj,eoq-bwnq-cvrey 1 tab PO DAILY Promethazine HCl 12.5 mg PO TIDP PRN PRN Reason: nausea and vomiting - Problem Reconciliation Problems Reviewed?: Yes
== END 2020-01-03 10:30 | disposition home or self-care (01) | DRG 807 ==
PROVIDERS: Admitting Provider Obstetrics & Gynecology; Visit Provider Obstetrics & Gynecology
DX: O13.3 Gestational [pregnancy-induced] hypertension without significant proteinuria, third trimester (principal); Z37.0 Single live birth; Z3A.38 38 weeks gestation of pregnancy
CPT/HCPCS: 59409; 59025; 80305; 81001; 85014; 85018; 85025; 86850; 87086; C1758

== ENCOUNTER → 2020-02-26 14:23 | Outpatient (CLI) | payer BC, MEDICAID, SELFPAY ==
[2020-02-26 16:12] LABS: HCG,Quantitative < 2 mIU/ml (0-5.42)
== END ==
PROVIDERS: Visit Provider Obstetrics & Gynecology
DX: Z32.00 Encounter for pregnancy test, result unknown (principal)
CPT/HCPCS: 36415; 84702

== ENCOUNTER 2020-07-15 20:51 | Emergency (ER) | payer BC, SELFPAY ==
[2020-07-15 20:55] VITALS: BP 138/89; PULSE 79; RESP 20; TEMP 37.2; O2SAT 96; BMI 26.1
--- NOTE | 2020-07-15 21:02 | HMH.EDUTC ---
[facility] Disposition Clinical Impression: Vaginal yeast infection Disposition: Home, Self-Care Condition on Discharge: Good Instructions: Vaginal Yeast Infection, DI for Vaginal Yeast Infection, Fluconazole Additional Instructions: Take medication as prescribed Make sure to follow up with OBGYN for full vaginal exam if no improvement or any worsening of symptoms Return if needed Straight to ER if any life threatening symptoms Prescriptions: Fluconazole [Diflucan 150mg tab] 150 mg PO ONCE #1 tab Transmission Status: Received by [id number] Referrals: PCP,Monserrat [Primary Care Provider] - Paula Perez MD [Staff Physician] - Time of Disposition: 21:25 Medical Decision Making - Angel Inquiry Pt receiving controlled substance: No Angel was queried for this patient: No Vital Signs: 07/15/20 20:55 07/15/20 21:31 Temperature 98.9 F 98.9 F Temperature Source Oral Pulse Rate 79 Pulse Rate [Right Brachial] 79 Respiratory Rate 20 20 Blood Pressure 138/89 Blood Pressure [Right Arm] 138/89 Blood Pressure Mean [Right Arm] 105 Blood Pressure Source [Right Arm] Automatic Cuff Blood Pressure Position [Right Arm] Sitting 02 Sat by Pulse Oximetry 96 Oxygen Delivery Method Room Air - Lab Data Lab results reviewed: Yes: I reviewed the patient's lab results. Lab Results 07/15/20 20:56: Urine Color Yellow, Urine Appearance Clear, Urine pH 6.5, Ur Specific Pierce 1.020, Urine Protein Negative, Urine Glucose (UA) Negative, Urine Ketones Negative, Urine Blood Negative, Urine Nitrate Negative, Urine Bilirubin Negative, Urine Urobilinogen 0.2, Ur Leukocyte Esterase Negative [facility] HPI - General Stated complaint: Possible UTI Time Seen by Provider: 07/15/20 21:02 Mode of Arrival: Ambulatory Source of Information: Patient Limitations: No Limitations Description of Symptoms (Recalled from Triage Doc. by RN): PATIENT C/O URINARY FREQUENCY AND DRY/ITCHY ANTHONY-AREA X 2 DAYS HEENT Symptoms (Recalled from RN notes): No Resp Symptoms (Recalled from RN notes): No Skin Symptoms (Recalled from RN notes): No MS Symptoms (Recalled from RN notes): No Functional Status (Recalled from RN notes): WNL - History of Present Illness Provider Complaint: Patient states that she feels like she may have a UTI State that she feels like she is having to use the bathroom more frequenty and feels dry and itchy burning feeling down there when she urinates State that she has not had any back pain or fever and not noticed any discharge states that she uses a nuvaring - Related Data Home Medications Medication Instructions Recorded Confirmed Etonogestrel/Ethinyl Estradiol 1 vag ring VAGINAL Q4W 07/15/20 07/15/20 [Nuvaring Vaginal Ring] Previous Rx's Medication Instructions Recorded Fluconazole [Diflucan 150mg tab] 150 mg PO ONCE #1 tab 07/15/20 Allergies Allergy/AdvReac Type Severity Reaction Status Date / Time No Known Allergies Allergy Verified 06/02/20 15:59 - Worker's Comp Is this a Worker's Comp case?: No [facility] History - Hepatitis A Screen Drug use history?: No High risk sexual behaviors?: No History of sexually transmitted infection?: No Currently employed?: No Childcare worker?: No Do you have indoor plumbing?: Yes Do you have electricity?: Yes Attestation statement:: This patient has been screened for Hepatitis A risk factors. I have reviewed the patient's past medical history: Yes Medical History: Denies:: Anxiety, Cancer, Depression, Diabetes Mellitus Type 1, Diabetes Mellitus Type 2, Hypertension, Internal Pacemaker, Migraine, MRSA, Seizures Other Medical History: Denies: Blood Transfusion Reaction Other Surgeries: Yes: Appendectomy, Cholecystectomy, Diagnostic Lap. No: , Pacemaker Amputation: No Fractures: No Comment: chromotubation 04/13/2019 - Social History Smoking Status: Never smoker Alcohol Intake: never Substance Use Type: denies use Occupational Status: o
[2020-07-15 21:09] LABS: Apearance,Urine Clear (Clear); Color,Urine Yellow (Yellow)
[2020-07-15 21:10] LABS: Glucose,Urine (UA) Negative (Negative); Ketones,Urine Negative (Negative); PH,Urine 6.5 (5.0-8.5); Protein,Urine Negative (Negative)
[2020-07-15 21:11] LABS: Bilirubin,Urine Negative (Negative); Blood, Urine Negative (Negative); UTC Leukocyte Esterase,Urine Negative (Negative); UTC Nitrate,Urine Negative (Negative); Urobilinogen,Urine 0.2 EU/dl (0.2)
[2020-07-15 21:31] VITALS: BP 138/89; PULSE 79; RESP 20; TEMP 37.2; O2SAT 96
== END 2020-07-15 21:35 | disposition home or self-care (01) ==
PROVIDERS: Emergency Provider Nurse Practitioner
DX: B37.3 Candidiasis of vulva and vagina (principal)
CPT/HCPCS: 81003; 99201

== ENCOUNTER 2020-07-31 12:11 | Emergency (ER) | payer BC, SELFPAY ==
[2020-07-31 13:20] VITALS: BP 118/73; PULSE 83; RESP 19; TEMP 36.9; O2SAT 98; BMI 25.7
--- NOTE | 2020-07-31 13:33 | HMH.EDUTC ---
[facility] [place] Disposition Clinical Impression: UTI (urinary tract infection) Qualifiers: Urinary tract infection type: site unspecified Hematuria presence: with hematuria Qualified Code(s): N39.0 - Urinary tract infection, site not specified; R31.9 - Hematuria, unspecified Disposition: Home, Self-Care Condition on Discharge: Good Instructions: Urinary Tract Infection, DI for Urinary Tract Infection (UTI), Phenazopyridine Additional Instructions: *Increase fluids. Water not Soda or Tea *Start antibiotic immediately and be sure to take as ordered for the FULL length of time although you should start to see improvement over the next 48 hours *Pyridium as needed Remember this medication will turn your urine [place]. This is normal but it will stain what ever it gets on *You should not use Pyridium for more than 48 hours. If so , follow up with your primary physician to review urine culture and ensure that antibiotic is adequate for infection *Be SURE to follow up anytime for new or worsening symptoms with your family doctor. AND in 48 hours for urine culture results with your family doctor, if you do not have a doctor then you may call back to the [facility] for urine culture results and further treatment. We do recommend that you choose and establish care with a Primary Care Physician. AND follow up with them in 10-14 days to repeat UA to ensure infection is resolved and blood no longer present *Be sure to let your PCP know that we sent urine cultures from the [facility] so they can follow up to ensure that you area the on the correct antibiotic Call your doctor office and make appointment for 48 hours (2 days from today) to follow up and get the results of your urine culture and further treatment Prescriptions: Sulfamethoxazole/Trimethoprim [Bactrim DS tablet] 1 each PO BID 10 Days #20 tab Transmission Status: Pending to [facility] Phenazopyridine HCl [Pyridium 200mg Tablet] 200 pow PO TID #6 tab Transmission Status: Pending to [facility] Referrals: PCP,No [Primary Care Provider] - As needed Time of Disposition: 13:48 Medical Decision Making - Angel Inquiry Pt receiving controlled substance: No Angel was queried for this patient: No Vital Signs: 07/31/20 13:20 Temperature 98.4 F Temperature Source Oral Pulse Rate [Right Brachial] 83 Respiratory Rate 19 Blood Pressure [Right Arm] 118/73 Blood Pressure Mean [Right Arm] 88 Blood Pressure Source [Right Arm] Automatic Cuff Blood Pressure Position [Right Arm] Sitting 02 Sat by Pulse Oximetry 98 Oxygen Delivery Method Room Air - Lab Data Lab results reviewed: Yes: I reviewed the patient's lab results. [facility] [place] HPI - General Stated complaint: frequent urination Time Seen by Provider: 07/31/20 13:33 Mode of Arrival: Ambulatory Source of Information: Patient Limitations: No Limitations Description of Symptoms (Recalled from Triage Doc. by RN): PATIENT C/O URINARY FREQUENCY WITH STRONG ODOR AND DARK COLOR X 2 DAYS HEENT Symptoms (Recalled from RN notes): No Resp Symptoms (Recalled from RN notes): No Skin Symptoms (Recalled from RN notes): No MS Symptoms (Recalled from RN notes): No Functional Status (Recalled from RN notes): WNL - History of Present Illness Provider Complaint: Patient state that she feels like she may have a UTI States that she has noticed that her urine is dark, strong odor State that she feels like she is continously having to go to the bathroom and having frequency and urgency with burning - Related Data Home Medications Medication Instructions Recorded Confirmed Etonogestrel/Ethinyl Estradiol 1 vag ring VAGINAL Q4W 07/15/20 07/31/20 [Nuvaring Vaginal Ring] Previous Rx's Medication Instructions Recorded Phenazopyridine HCl [Pyridium 200 pow PO TID #6 tab 07/31/20 200mg Tablet] Sulfamethoxazole/Trimethoprim 1 each PO BID 10 Days #20 tab 07/31/20 [Bactrim DS tablet] Allergies Allergy/AdvReac Type Severity Reaction S
[2020-07-31 13:50] VITALS: BP 118/73; PULSE 83; RESP 19; TEMP 36.9; O2SAT 98
[2020-07-31 16:23] LABS: Apearance,Urine Clear (Clear); Bilirubin,Urine Negative (Negative); Blood, Urine 1+ (Negative); Color,Urine Dark Yellow (Yellow); Glucose,Urine (UA) Negative (Negative); Ketones,Urine Negative (Negative); PH,Urine 5.5 (5.0-8.5); Protein,Urine 1+ (Negative)
[2020-07-31 16:24] LABS: UTC Leukocyte Esterase,Urine 2+ (Negative); UTC Nitrate,Urine Positive (Negative); Urobilinogen,Urine 0.2 EU/dl (0.2)
== END 2020-07-31 13:55 | disposition home or self-care (01) ==
PROVIDERS: Emergency Provider Nurse Practitioner
DX: N30.00 Acute cystitis without hematuria (principal)
CPT/HCPCS: 81003; 87086; 87088; 87186; 99201

== ENCOUNTER 2020-08-30 15:59 | Emergency (ER) | payer BC, SELFPAY ==
[2020-08-30 16:40] VITALS: BP 148/85; PULSE 129; RESP 20; TEMP 36.9; O2SAT 99; BMI 25.7
--- NOTE | 2020-08-30 17:23 | HMH.EDUTC ---
[facility] [place] Disposition Clinical Impression: Viral syndrome, Close exposure to COVID-19 virus Disposition: Home, Self-Care Condition on Discharge: Good Instructions: DI for COVID-19 (Suspected or Confirmed ), Preventing the Spread of Coronavirus Discharge Instructions Additional Instructions: Drink plenty of fluids. Take tylenol for pain or fever. Return if you begin to have difficulty breathing. Follow up with your regular doctor. GO TO THE ER FOR ANY WORSENING SYMPTOMS Referrals: PCP,No [Primary Care Provider] - Time of Disposition: 17:35 Medical Decision Making - Medical Records Medical records reviewed: No: I reviewed the patient's medical records. - Angel Inquiry Pt receiving controlled substance: No Vital Signs: 08/30/20 16:40 08/30/20 17:42 Temperature 98.4 F 98.4 F Temperature Source Oral Pulse Rate 129 H Pulse Rate [Left Brachial] 129 H Respiratory Rate 20 20 Blood Pressure 148/85 H Blood Pressure [Left Arm] 148/85 H Blood Pressure Mean [Left Arm] 106 Blood Pressure Source [Left Arm] Automatic Cuff Blood Pressure Position [Left Arm] Sitting 02 Sat by Pulse Oximetry 99 Oxygen Delivery Method Room Air [facility] [place] HPI - General Stated complaint: sore throat, congestion Time Seen by Provider: 08/30/20 17:23 Mode of Arrival: Ambulatory Source of Information: Patient Limitations: No Limitations Description of Symptoms (Recalled from Triage Doc. by RN): PATIENT C/O COUGH, CONGESTION, AND SORE THROAT. HER SON WAS RECENTLY EXPOSED TO COVID HEENT Symptoms (Recalled from RN notes): Yes Resp Symptoms (Recalled from RN notes): Yes Skin Symptoms (Recalled from RN notes): No MS Symptoms (Recalled from RN notes): No Functional Status (Recalled from RN notes): WNL - History of Present Illness Provider Complaint: She states that since yesterday she has ran a low grade fever, felt bad, had a cough and a sore throat. She was exposed to covid-19. - Related Data Home Medications Medication Instructions Recorded Confirmed Etonogestrel/Ethinyl Estradiol 1 vag ring VAGINAL Q4W 07/15/20 08/30/20 [Nuvaring Vaginal Ring] Allergies Allergy/AdvReac Type Severity Reaction Status Date / Time No Known Allergies Allergy Verified 06/02/20 15:59 - Worker's Comp Is this a Worker's Comp case?: No [facility] History - Hepatitis A Screen Drug use history?: No High risk sexual behaviors?: No History of sexually transmitted infection?: No Currently employed?: No Childcare worker?: No Do you have indoor plumbing?: Yes Do you have electricity?: Yes Attestation statement:: This patient has been screened for Hepatitis A risk factors. I have reviewed the patient's past medical history: Yes Medical History: Denies:: Anxiety, Cancer, Depression, Diabetes Mellitus Type 1, Diabetes Mellitus Type 2, Hypertension, Internal Pacemaker, Migraine, MRSA, Seizures Other Medical History: Denies: Blood Transfusion Reaction Other Surgeries: Yes: Appendectomy, Cholecystectomy, Diagnostic Lap. No: , Pacemaker Amputation: No Fractures: No Comment: chromotubation 04/13/2019 - Social History Smoking Status: Never smoker Alcohol Intake: never Substance Use Type: denies use Occupational Status: other Housing: house - Psychiatric History Pschychiatric History:: Denies:: Anxiety, Depression Family Hx:: No significant family history ROS Obtained: Yes All systems reviewed & no additional complaints - Constitutional Constitutional: Reports system reviewed and no additional complaints, except as docu - Eyes Eyes: Reports system reviewed and no additional complaints, except as docu - ENT Ears, Nose, Mouth, and Throat: Reports system reviewed and no additional complaints, except as docu - Cardiovascular Cardiovascular: Reports system reviewed and no additional complaints, except as docu - Respiratory Respiratory: Reports system reviewed and no additional complaints, except as docu -
[2020-08-30 17:42] VITALS: BP 148/85; PULSE 129; RESP 20; TEMP 36.9; O2SAT 99
--- NOTE | 2020-08-31 10:29 | PC.NURSE ---
patient notified of positive covid results
== END 2020-08-30 17:45 | disposition home or self-care (01) ==
PROVIDERS: Emergency Provider Nurse Practitioner Family
DX: U07.1 COVID-19 (principal); B34.9 Viral infection, unspecified
CPT/HCPCS: 99202; G0463; U0003

== ENCOUNTER 2020-12-13 15:00 | Emergency (ER) | payer BC, SELFPAY ==
[2020-12-13 15:25] VITALS: BP 127/76; PULSE 77; RESP 19; TEMP 37.1; O2SAT 98; BMI 26.6
--- NOTE | 2020-12-13 15:47 | HMH.EDUTC ---
[facility] [place] Disposition Clinical Impression: Acute bronchitis Qualifiers: Bronchitis organism: unspecified organism Qualified Code(s): J20.9 - Acute bronchitis, unspecified Sinusitis Qualifiers: Sinusitis location: unspecified location Chronicity: chronic Qualified Code(s): J32.9 - Chronic sinusitis, unspecified Disposition: Home, Self-Care Condition on Discharge: Good Instructions: Sinusitis, Acute Bronchitis, DI for Sinusitis, DI for Acute Bronchitis Additional Instructions: ? Start antibiotic today. Be sure to complete entire prescription even if feeling better ? Monitor temp. Tylenol every 4 hours as needed and / or ibuprofen every 6 hours as needed ( As long as your primary care physician has told you that it ok to take both. For fever/aches/pains ER if no less than 101 despite Tylenol or Motrin ? Humidifier/vaporizer or hot steamy shower ? Inhaler every 4-6 hours as needed like we discussed. If unsure how to use it, ask pharmacist to demonstrate how. Should help open airways and improve cough, wheezing, and shortness of breath ? Mucinex during the day for your cough and cough suppressant only at night. Be sure to drink lots of water. Insurance may not cover a prescriptions for mucinex. Might be cheaper to get 400mg tablets and take 2 tablet in the morning, mid-day and evening with lots of water. *Start steroid today. Helps with inflammation therefore, cough and wheezing. Follow directions on the package. Reviewed side effects. Patient reports taking them before. Follow up IMMEDIATELY for new or worsening of symptoms OR no noticeable improvement over the next 48-72 hours. 911 immediately for any life threatening symptoms such as chest pain or difficulty breathing Prescriptions: methylPREDNISolone [Medrol 4mg tab] 4 mg PO DIRECTED #21 tab Transmission Status: [facility] guaiFENesin [Mucinex 600mg tablet] 1 - 2 tab PO BID PRN #20 tab.er.12h PRN Reason: Congestion Transmission Status: [facility] to [facility] Azithromycin [Z-Duy 250mg Tab] 250 mg PO DIRECTED #6 tab Transmission Status: [facility] Referrals: Provider,Referral, MD [Primary Care Provider] - As needed Time of Disposition: 15:55 Medical Decision Making - Angel Inquiry Pt receiving controlled substance: No Angle was queried for this patient: No Vital Signs: 12/13/20 15:25 Temperature 98.7 F Temperature Source Oral Pulse Rate [Right Brachial] 77 Respiratory Rate 19 Blood Pressure [Right Arm] 127/76 Blood Pressure Mean [Right Arm] 93 Blood Pressure Source [Right Arm] Automatic Cuff Blood Pressure Position [Right Arm] Sitting 02 Sat by Pulse Oximetry 98 Oxygen Delivery Method Room Air [facility] [place] HPI - General Stated complaint: congestion Time Seen by Provider: 12/13/20 15:47 Mode of Arrival: Ambulatory Source of Information: Patient Limitations: No Limitations Description of Symptoms (Recalled from Triage Doc. by RN): PATIENT C/O CHEST CONGESTION AND COUGH WITH MUCOUS X 1 WEEK HEENT Symptoms (Recalled from RN notes): No Resp Symptoms (Recalled from RN notes): Yes Skin Symptoms (Recalled from RN notes): No MS Symptoms (Recalled from RN notes): No Functional Status (Recalled from RN notes): WNL - History of Present Illness Provider Complaint: Patient states that she has been having sinus congestion with drainage in the back of her throat and feeling like it is trying to move into her chest area States that at time she was able to cough up some mucous that was draining in her throat but was worried that it was moving into her chest so she wanted to get checked before it got to bad - Related Data Home Medications Medication Instructions Recorded Confirmed Etonogestrel/Ethinyl Estradiol 1 vag ring VAGINAL Q4W 07/15/20 12/13/20 [Nuvaring Vaginal Ring] Previous Rx's Medication Instructions Recorded Azithromycin [Z-Duy 250mg Tab] 250 mg PO DIRECTED #6 tab 12/13/20 Sandrine
[2020-12-13 15:55] VITALS: BP 127/76; PULSE 77; RESP 19; TEMP 37.1; O2SAT 98
== END 2020-12-13 16:00 | disposition home or self-care (01) ==
PROVIDERS: Emergency Provider Nurse Practitioner
DX: J20.9 Acute bronchitis, unspecified (principal); J32.9 Chronic sinusitis, unspecified; F41.8 Other specified anxiety disorders
CPT/HCPCS: 99202; G0463

== ENCOUNTER 2021-06-28 13:10 | Emergency (ER) | payer BC, SELFPAY ==
[2021-06-28 13:15] VITALS: BP 131/78; PULSE 88; RESP 18; TEMP 36.7; O2SAT 98; BMI 27.3
--- NOTE | 2021-06-28 13:45 | HMH.EDUTC ---
[facility] [place] Disposition Clinical Impression: URI (upper respiratory infection) Qualifiers: URI type: unspecified URI Qualified Code(s): J06.9 - Acute upper respiratory infection, unspecified Disposition: Home, Self-Care Condition on Discharge: Good Instructions: Sore Throat, Sinus Headache, DI for Headache Additional Instructions: *Monitor Temp, Over the counter Motrin or Tylenol as directed/as needed Tylenol every 4 hours and Motrin every 6 hours (as long as your family doctor has told you that you can take it) for fever or pain. and straight to ER if unable to lower temp less than 101.0 after medication given *Warm salt water gargles may help to soothe the throat *Throat Lozenges *Warm fluids like tea with honey may help to soothe the throat *Sleep elevated *Humidifier/Vaporizer * Your throat swab was sent for culture. Those results are typically sent to your primary care. Be sure to follow up in 2-3 days with your family doctor/primary care physician if no improvement so they can review those result and treat if necessary. If you don?t have a primary care doctor, I recommend you get one but in the mean time, you will have to return to a walk in clinic Follow up IMMEDIATELY for new or worsening symptoms or no Noticeable improvement over the next 48-72 hours. 911 for difficulty breathing or swallowing Prescriptions: Cefdinir [Omnicef 300mg Capsule] 300 mg PO BID #20 cap Transmission Status: Received by [facility] Ondansetron [Zofran 4mg ODT] 4 mg PO TIDP PRN #10 tab PRN Reason: Nausea Transmission Status: Received by [facility] Referrals: Provider,Referral, [Primary Care Provider] - As needed Time of Disposition: 13:52 Medical Decision Making - Angel Inquiry Pt receiving controlled substance: No Angel was queried for this patient: No Vital Signs: 06/28/21 13:15 06/28/21 13:53 Temperature 98.0 F 98.0 F Temperature Source Oral Pulse Rate 88 Pulse Rate [Right Brachial] 88 Respiratory Rate 18 18 Blood Pressure 131/78 Blood Pressure [Right Arm] 131/78 Blood Pressure Mean [Right Arm] 95 Blood Pressure Source [Right Arm] Automatic Cuff Blood Pressure Position [Right Arm] Sitting 02 Sat by Pulse Oximetry 98 Oxygen Delivery Method Room Air - Lab Data Lab results reviewed: Yes: I reviewed the patient's lab results. Lab Results 06/28/21 13:33: Strep Scn Rapid Clinic Negative Orders (Tests/Meds): ED MEDICATIONS Discontinued Medications Generic Name Dose Route Start Last Admin Trade Name Shara PRN Reason Stop Dose Admin Ondansetron HCl 4 mg 06/28/21 13:47 06/28/21 13:53 Ondansetron 4mg Odt SL 06/28/21 13:48 4 mg ONCE ONE Administration ORDERS Category Date Time Status Strep Screen Confirmation Stat Micro 06/28/21 13:33 Received [facility] [place] HPI - General Stated complaint: sore throat, cough, h/a,congestion Time Seen by Provider: 06/28/21 13:45 Mode of Arrival: Ambulatory Source of Information: Patient Limitations: No Limitations Description of Symptoms (Recalled from Triage Doc. by RN): PATIENT C/O COUGH, CONGESTION, RUNNY NOSE, NAUSEA AND HEADACHE SINCE TUESDAY HEENT Symptoms (Recalled from RN notes): Yes Resp Symptoms (Recalled from RN notes): Yes Skin Symptoms (Recalled from RN notes): No MS Symptoms (Recalled from RN notes): No Functional Status (Recalled from RN notes): WNL - History of Present Illness Provider Complaint: Patient states that she was recently around her neice that had strep throat State that she has since been having nausea, vomiting headache and runny nose States that she has felt ill all weekend and her throat feels raw and hurts when she swallows so she came in to get chekced - Related Data Previous Rx's Medication Instructions Recorded etonogestrel 0.12 mg-ethinyl 1 vag ring VAGINAL Q4W #3 each 06/11/21 estradiol 0.015 mg/24 hr vaginal ring Cefdinir [Omnicef 300mg Capsule] 300 mg PO BID #20 ca
[2021-06-28 13:53] VITALS: BP 131/78; PULSE 88; RESP 18; TEMP 36.7; O2SAT 98
[2021-06-28 14:21] LABS: UTC Strep Screen (Rapid) Negative (Negative)
== END 2021-06-28 13:59 | disposition home or self-care (01) ==
PROVIDERS: Emergency Provider Nurse Practitioner
DX: J06.9 Acute upper respiratory infection, unspecified (principal)
CPT/HCPCS: 87880; 99202; G0463

== ENCOUNTER → 2021-07-02 14:07 | Outpatient (CLI) | payer BC, SELFPAY ==
--- NOTE | 2021-07-02 14:08 | US_ITS ---
PROCEDURE: US TRANSVAGINAL CLINICAL INDICATION: pelvic pain COMPARISON: US TRANVAG US transvaginal from 03/15/2019 FINDINGS: UTERUS: 7cm x 5cmx 4cm with a combined endometrial thickness of 8.9mm. Small nabothian cyst noted at 4 mm LEFT OVARY: [id number] with a volume of 4.4ml. RIGHT OVARY: [id number] with a volume of 5.7ml. No uterine mass evident. The ovaries are unremarkable with small follicles. No adnexal mass or cul-de-sac fluid. IMPRESSION: Negative pelvic ultrasound Dictated by: Dougie Murrell MD 07/02/2021 17:26 Dougie Murrell MD in OV 07/02/2021 17:26
== END ==
LOC: RAD 14:08
PROVIDERS: Visit Provider Obstetrics & Gynecology
DX: R10.2 Pelvic and perineal pain (principal)
CPT/HCPCS: 76830

== ENCOUNTER 2021-08-13 14:51 | Emergency (ER) | payer BC, SELFPAY ==
[2021-08-13 15:11] VITALS: BP 121/87; PULSE 112; RESP 18; TEMP 37.1; O2SAT 97; BMI 26.2
[2021-08-13 15:31] LABS: UTC Influenza A Antigen Negative (Negative); UTC Influenza B Antigen Negative (Negative)
--- NOTE | 2021-08-13 15:31 | HMH.EDUTC ---
[facility] [place]ression: Strep throat Disposition: Home, Self-Care Condition on Discharge: Good Instructions: Strep Throat, DI for Strep Throat Additional Instructions: *Monitor Temp, Over the counter Motrin or Tylenol as directed/as needed Tylenol every 4 hours and Motrin every 6 hours (as long as your family doctor has told you that you can take it) for fever or pain. and straight to ER if unable to lower temp less than 101.0 after medication given *Warm salt water gargles may help to soothe the throat *Throat Lozenges *Warm fluids like tea with honey may help to soothe the throat *Sleep elevated *Humidifier/Vaporizer *If you did not take Penicillin shot or was unable to, start taking antibiotic immediately and make sure that you take it for the FULL length of time although you should start to feel better in 24-48 hours *change toothbrush and toothpaste 24-48 hours after starting to take antibiotics so you do not reinfect yourself Monitor Temp. Tylenol and/or Ibuprofen as needed. ER if fever is no less than 101 despite alternating Tylenol and Ibuprofen * Encourage fluids, water, Gatorade, powerade, pedialyte if /toddler/or child *Cold fluids, popsicles and ice cream may feel good on his throat Follow up IMMEDIATELY for new or worsening symptoms or no Noticeable improvement over the next 48-72 hours. 911 for difficulty breathing or swallowing You were tested for today for COVID19 your test result should be back in the next 24-48 hours, you may check your results on the [facility] My Health Portal if you have trouble logging on you may call You was given a handout with instructions for Self Quarantine and Self isolation for while you wait on test results and what to do if they are positive If you are positive the Health Dept will be contacting you also Make sure to take your Vitamins Vit. C Vit D and Zinc if you can take them Prescriptions: Cefdinir [Omnicef 300mg Capsule] 300 mg PO BID #20 cap Transmission Status: Pending to [id number] Referrals: Provider,Referral, MD [Primary Care Provider] - As needed Forms: Work/School Release Time of Disposition: 15:41 Medical Decision Making - Angel Inquiry Pt receiving controlled substance: No Angel was queried for this patient: No Vital Signs: 08/13/21 15:11 Temperature 98.8 F Temperature Source Oral Pulse Rate [Left] 112 H Respiratory Rate 18 Blood Pressure [Right Arm] 121/87 Blood Pressure Mean [Right Arm] 98 02 Sat by Pulse Oximetry 97 - Lab Data Lab results reviewed: Yes: I reviewed the patient's lab results. Lab Results 08/13/21 15:14: Strep Scn Rapid Clinic Positive A 08/13/21 15:15: Influenza Type A Ag Negative, Influenza Type B Ag Negative Orders (Tests/Meds): ORDERS Category Date Time Status Covid-19 Nasal PCR ([facility]) Routine Lab 08/13/21 15:10 [place] [facility] [place] - General Stated complaint: sore throat,headache,congestion,body aches Time Seen by Provider: 08/13/21 15:31 Mode of Arrival: Ambulatory Source of Information: Patient Limitations: No Limitations Description of Symptoms (Recalled from Triage Doc. by RN): pt c/o a sore throat, nasal drainage/congestion, body aches and a HESS. since yesterday. HEENT Symptoms (Recalled from RN notes): Yes (HESS, sore throat, congestion/drainage) Resp Symptoms (Recalled from RN notes): No Skin Symptoms (Recalled from RN notes): No MS Symptoms (Recalled from RN notes): No Functional Status (Recalled from RN notes): wnl - History of Present Illness Provider Complaint: Patient states that she has been having sore throat, headache, nasal congestion and body aches since yesterday States that today she feels like she has a lump in her throat and noticed she had blisters on one side of her throat so she came in to get checked out - Related Data Previous Rx's Medication Instructions Recorded etonogestrel 0.12 mg-ethinyl 1 vag ring VAGINAL Q4W #3 each 06/11/21 estradiol 0.01
[2021-08-13 15:32] LABS: UTC Strep Screen (Rapid) Positive (Negative)
[2021-08-13 15:45] VITALS: BP 121/87; PULSE 112; RESP 18; TEMP 37.1
== END 2021-08-13 16:06 | disposition home or self-care (01) ==
PROVIDERS: Emergency Provider Nurse Practitioner
DX: J02.0 Streptococcal pharyngitis (principal); Z20.822 Contact with and (suspected) exposure to COVID-19
CPT/HCPCS: 87804; 87880; 99203; C9803; G0463; U0003; U0005

== ENCOUNTER 2021-08-13 20:14 | Emergency (ER) | payer BC, SELFPAY ==
[2021-08-13 20:19] VITALS: BP 141/83; PULSE 135; RESP 16; TEMP 37.7; O2SAT 99; BMI 26.2
[2021-08-13 20:30] LABS: Color,Urine Dark Yellow (Yellow)
[2021-08-13 20:31] LABS: Apearance,Urine Turbid (Clear); Bilirubin,Urine 1+ (Negative); Blood, Urine 3+ (Negative); Glucose,Urine (UA) Negative (Negative); Ketones,Urine Negative (Negative); Protein,Urine 2+ (Negative); Specific Gravity, Urine > 1.030 (1.005-1.030); UTC Leukocyte Esterase,Urine 1+ (Negative); UTC Nitrate,Urine Negative (Negative); Urobilinogen,Urine 1 EU/dl (0.2)
--- NOTE | 2021-08-13 20:32 | HMH.EDUTC ---
[facility] [place] Disposition Clinical Impression: Vaginal yeast infection UTI (urinary tract infection) Qualifiers: Urinary tract infection type: site unspecified Hematuria presence: with hematuria Qualified Code(s): N39.0 - Urinary tract infection, site not specified; R31.9 - Hematuria, unspecified Disposition: Home, Self-Care Condition on Discharge: Good Instructions: DI for Urinary Tract Infection (UTI), Urinary Tract Infection, DI for Vaginal Yeast Infection, Vaginal Yeast Infection Additional Instructions: Stop Taking Bactrim and continue taking Cefdinir Take diflucan as prescribed FOllow up with OBGYN Make sure to drink plenty of water and fluids to avoid soda Return if needed You was given Diflucan tonight in [facility] and given prescription for one to repeat in 72 hours if you are still having symptoms Follow up with OBGYN and avoid using the Nuvaring while you are having symptoms *Increase fluids. Water not Soda or Tea *Pyridium as needed Remember this medication will turn your urine [place]. This is normal but it will stain what ever it gets on *You should not use Pyridium for more than 48 hours. If so , follow up with your primary physician to review urine culture and ensure that antibiotic is adequate for infection *Be SURE to follow up anytime for new or worsening symptoms with your family doctor. AND in 48 hours for urine culture results with your family doctor, if you do not have a doctor then you may call back to the [facility] for urine culture results and further treatment. We do recommend that you choose and establish care with a Primary Care Physician. AND follow up with them in 10-14 days to repeat UA to ensure infection is resolved and blood no longer present *Be sure to let your PCP know that we sent urine cultures from the [facility] so they can follow up to ensure that you area the on the correct antibiotic Call your doctor office and make appointment for 48 hours (2 days from today) to follow up and get the results of your urine culture and further treatment Straight to ER if any life threatening symptoms Prescriptions: Fluconazole [Diflucan 150mg tab] 150 mg PO ONCE #1 tab Transmission Status: [facility] Phenazopyridine HCl [Pyridium 200mg Tablet] 200 pow PO TID #6 tab Transmission Status: [facility] Referrals: Provider,Stanislaw, [Primary Care Provider] - Paula Perez MD [Staff Physician] - Time of Disposition: 21:23 Medical Decision Making - Angel Inquiry Pt receiving controlled substance: No Angel was queried for this patient: No Vital Signs: 08/13/21 20:19 08/13/21 21:07 Temperature 99.8 F H 99.8 F H Temperature Source Oral Pulse Rate 122 H Pulse Rate [Left] 135 H Respiratory Rate 16 16 Blood Pressure 141/83 H Blood Pressure [Right Arm] 141/83 H Blood Pressure Mean [Right Arm] 102 02 Sat by Pulse Oximetry 99 - Lab Data Lab results reviewed: Yes: I reviewed the patient's lab results. Lab Results 08/13/21 20:21: Urine HCG, Qual Negative 08/13/21 20:28: Urine Color Dark yellow, Urine Appearance Turbid, Urine pH 6.0, Ur Specific [place] > 1.030 H, Urine Protein 2+, Urine Glucose (UA) Negative, Urine Ketones Negative, Urine Blood 3+, Urine Nitrate Negative, Urine Bilirubin 1+ A, Urine Urobilinogen 1, Ur Leukocyte Esterase 1+ A Orders (Tests/Meds): ED MEDICATIONS Discontinued Medications Generic Name Dose Route Start Last Admin Trade Name Freq PRN Reason Stop Dose Admin Acetaminophen 650 mg 08/13/21 20:58 08/13/21 21:02 Acetaminophen 325mg Tab PO 08/13/21 20:59 650 mg ONCE ONE Administration Fluconazole 100 mg 08/13/21 21:14 Fluconazole 100mg Tablet PO 08/13/21 21:15 ONCE ONE ORDERS Category Date Time Status Urine Culture Stat Micro 08/13/21 20:21 Received Medical Decision Narrative: Denies history of kidney stones discussed with patient that she could be transferred to the ED for further evaluation and
[2021-08-13 20:57] LABS: Urine Pregnancy, HCG Qual. Negative (Negative)
[2021-08-13 21:07] VITALS: BP 141/83; PULSE 122; RESP 16; TEMP 37.7
[2021-08-18 02:08] LABS: Neisseria gonorrhoeae, NAA Negative (Negative)
== END 2021-08-13 21:27 | disposition home or self-care (01) ==
PROVIDERS: Emergency Provider Nurse Practitioner
DX: B37.3 Candidiasis of vulva and vagina (principal); N30.00 Acute cystitis without hematuria
CPT/HCPCS: 81003; 81025; 87086; 87491; 87591; 99202; G0463

== ENCOUNTER 2021-08-18 13:40 | Emergency (ER) | payer BC, SELFPAY ==
[2021-08-18] VITALS (7 sets, daily range): BP systolic 97–131; BP diastolic 61–91; PULSE 86–120; RESP 16–18; TEMP 37.4; O2SAT 96–100; BMI 26.2
[2021-08-18 14:23] LABS: Basophils # 0.2 K/mm3 (0-0.2); Basophils % 2.8 % (0.1-2.0); Eosinophils % 0.1 % (0.1-12.0); Hematocrit 45.5 % (37.0-47.0); Hemoglobin 15.2 g/dL (12.2-16.2); Lymphocytes # 1.1 K/mm3 (0.7-4.5); Lymphocytes % 14.3 % (10-50); Mean Corpuscular HGB Conc 33.5 g/dL (31.8-35.4); Mean Corpuscular Hemoglobin 28.2 pg (27.0-31.2); Mean Corpuscular Volume 84.2 fl (81-99); Mean Platelet Volume 8.1 fl (7.4-10.4); Monocytes # 0.7 K/mm3 (0.1-1.0); Monocytes % 8.8 % (1.7-9.3); Neutrophils # 5.8 K/mm3 (1.8-7.8); Platelet Count 196 K/mm3 (142-424); Red Blood Count 5.41 M/mm3 (4.20-5.40); Red Cell Distribution Width 13.4 % (11.5-17.5); White Blood Count 7.9 K/mm3 (4.8-10.8)
[2021-08-18 14:28] LABS: Chloride 99 mmol/L (98-107); Potassium 3.6 mmoL/L (3.5-5.1); Sodium 136 mmol/L (136-145)
[2021-08-18 14:31] LABS: Alanine Aminotransferase 59 U/L (12-78); Albumin Level 4.4 g/dl (3.5-5.0); Albumin/Globulin Ratio 1.4 (1.1-1.8); Alkaline Phosphatase 85 U/L (38-126); Anion Gap 13.6 mEq/L (5-15); Aspartate Amino Transferase 46 U/L (14-36); Bilirubin,Total 0.5 mg/dl (0.2-1.3); Blood Urea Nitrogen 8 mg/dl (7-17); Calcium 9.8 mg/dl (8.4-10.2); Carbon Dioxide 27 mmol/L (22.0-30.0); Creatinine Clearance Estimated 118 mL/min (50-200); Estimated Glomerular Filt Rate 87 ml/min (>60); GFR (African American) 106 ML/MIN (>60); Globulin 3.2 g/dL (1.3-3.2); Glucose 101 mg/dl (74-100); Lipase 47 U/L (23-300); Total Protein,Serum 7.6 g/dl (6.3-8.2)
--- NOTE | 2021-08-18 15:07 | HMH.EDGENADL ---
ED Disposition Clinical Impression: URI (upper respiratory infection) Qualifiers: URI type: unspecified viral URI Qualified Code(s): J06.9 - Acute upper respiratory infection, unspecified Gastritis Qualifiers: Gastritis type: unspecified gastritis Chronicity: acute Gastritis bleeding: without bleeding Qualified Code(s): K29.00 - Acute gastritis without bleeding Disposition: Home, Self-Care Condition on Discharge: Good Instructions: DI for Gastritis Prescriptions: Promethazine HCl [Phenergan 25mg tab] 25 mg PO BID #10 tab Transmission Status: Pending to [id number] Referrals: Cedric Downs MD [Primary Care Provider] - - Critical Care Critical Care Time: No Attestation: On 08/18/21, the high probability of a clinically significant, sudden or life threatening deterioration of the following system(s) required my full and direct attention, intervention and personal management. The time I documented below is in addition to time spent performing reported procedures but includes the following listed in this critical care notation. Medical Decision Making - Medical Records Medical records reviewed: Yes: I reviewed the patient's medical records. - Angel Inquiry Pt receiving controlled substance: No Vital Signs: 08/18/21 13:41 08/18/21 14:00 08/18/21 14:30 Temperature 99.4 F Temperature Source Oral Pulse Rate 114 H 100 H Pulse Rate [Right Radial] 120 H Respiratory Rate 18 Blood Pressure 116/82 131/91 H Blood Pressure [Right Arm] 120/87 Blood Pressure Mean Blood Pressure Mean [Right Arm] 98 Blood Pressure Source [Right Arm] Automatic Cuff Blood Pressure Position [Right Arm] Sitting 02 Sat by Pulse Oximetry 97 97 97 Oxygen Delivery Method Room Air 08/18/21 15:00 08/18/21 16:29 08/18/21 16:30 Temperature Temperature Source Pulse Rate 95 H 111 H 100 H Pulse Rate [Right Radial] Respiratory Rate 16 16 Blood Pressure 120/86 103/65 L 97/61 L Blood Pressure [Right Arm] Blood Pressure Mean 77 70 Blood Pressure Mean [Right Arm] Blood Pressure Source [Right Arm] Blood Pressure Position [Right Arm] 02 Sat by Pulse Oximetry 100 97 96 Oxygen Delivery Method Room Air Room Air - Lab Data Lab Results 08/18/21 14:10: WBC 7.9, RBC 5.41 H, Hgb 15.2, Hct 45.5, MCV 84.2, MCH 28.2, MCHC 33.5, RDW 13.4, Plt Count 196, MPV 8.1, Neut % (Auto) 74.0, Lymph % (Auto) 14.3, [place] % (Auto) 8.8, Eos % (Auto) 0.1, Baso % (Auto) 2.8 H, Neut # (Auto) 5.8, Lymph # (Auto) 1.1, [place] # (Auto) 0.7, Eos # (Auto) 0.0, Baso # (Auto) 0.2 08/18/21 14:10: Sodium 136, Potassium 3.6, Chloride 99, Carbon Dioxide 27, Anion Gap 13.6, BUN 8, Creatinine 0.80, Estimated Creat Clear 118, Estimated GFR 87, Est GFR ( Amer) 106, Glucose 101 H, Calcium 9.8, Total Bilirubin 0.5, AST 46 H, ALT 59, Alkaline Phosphatase 85, Total Protein 7.6, Albumin 4.4, Globulin 3.2, Albumin/Globulin Ratio 1.4, Lipase 47 08/18/21 15:42: Urine Color Yellow, Urine Appearance Clear, Urine pH 7.5, Ur Specific [place] <= 1.005, Urine Protein Negative, Urine Glucose (UA) Negative, Urine Ketones Negative, Urine Blood 3+, Urine Nitrate Negative, Urine Bilirubin Negative, Urine Urobilinogen 0.2, Ur Leukocyte Esterase 2+ A, Urine RBC 5-10, Urine WBC 5-10, Ur Squamous Epith Cells 5-10, Urine Bacteria Trace 08/18/21 15:42: Urine HCG, Qual Negative Result diagrams: 08/18/21 14:10 08/18/21 14:10 Orders (Tests/Meds): ED MEDICATIONS Discontinued Medications Generic Name Dose Route Start Last Admin Trade Name Freq PRN Reason Stop Dose Admin Sodium Chloride 1,000 mls @ 999 mls/hr 08/18/21 14:15 08/18/21 14:12 Sod Chlor 0.9% 1000ml Bag IV 08/18/21 15:15 999 mls/hr .Q1H1M MAICOL Administration Promethazine HCl 25 mg 08/18/21 14:01 08/18/21 14:12 Promethazine Hcl 25mg/Ml 1ml Vial IV 08/18/21 14:02 25 mg ONCE ONE Administration Sodium Chloride 25 ml 08/18/21 14:01 08/18/21 14:12 Sodium Chlo
[2021-08-18 16:08] LABS: Microscopic, Urine URINE MICROSCOPIC (MICROSCOPIC)
[2021-08-18 16:16] LABS: Appearance,Urine CLEAR (Clear); Bilirubin,Urine Negative (Negative); Blood, Urine 3+ (Negative); Color,Urine YELLOW (Yellow); Glucose,Urine (UA) Negative (Negative); Ketones,Urine Negative (Negative); Leukocyte Esterase,Urine 2+ (Negative); Nitrate,Urine Negative (Negative); PH,Urine 7.5 (5.0-8.5); Protein,Urine Negative (Negative); Specific Gravity, Urine <= 1.005 (1.005-1.030); Urobilinogen,Urine 0.2 EU/dl (0.2)
[2021-08-18 16:17] LABS: Urine Pregnancy, HCG Qual. Negative (Negative)
[2021-08-18 16:29] LABS: Bacteria,Urine Trace /lpf
== END 2021-08-18 18:36 | disposition home or self-care (01) ==
PROVIDERS: Emergency Provider Emergency Medicine; PCP Internal Medicine Adolescent Medicine
DX: J06.9 Acute upper respiratory infection, unspecified (principal); K29.00 Acute gastritis without bleeding
CPT/HCPCS: 80053; 81001; 81025; 83690; 85025; 87086; 96365; 96375; 99282

== ENCOUNTER 2021-09-07 19:27 | Emergency (ER) | payer BC, SELFPAY ==
[2021-09-07 21:15] VITALS: BP 120/74; PULSE 94; RESP 20; TEMP 36.8; O2SAT 99; BMI 26.6
--- NOTE | 2021-09-07 21:18 | HMH.EDUTC ---
[facility] Disposition Clinical Impression: Viral upper respiratory illness Disposition: Home, Self-Care Condition on Discharge: Good Instructions: Sore Throat, DI for COVID-19 (Suspected or Confirmed ), Preventing the Spread of Coronavirus Discharge Instructions Additional Instructions: Warm salt water gargles will help with sore throat Over the counter cough and cold medication may help with cough and nasal congestion Over the counter Motrin and/or Tylenol may help with fever chills and body aches Make sure to drink plenty of fluids like water and gatoraid to keep yourself hydrated You may check your COVID results on the [facility] my health portal for your results they should be there in the next 24-72 hours Return if needed Follow up with Family Doctor if no improvement Straight to ER if any life threatening symptoms Referrals: Cedric Downs MD [Primary Care Provider] - As needed Forms: Work/School Release Medical Decision Making - Angel Inquiry Pt receiving controlled substance: No Angel was queried for this patient: No Vital Signs: 09/07/21 21:15 09/07/21 21:21 Temperature 98.2 F 98.2 F Temperature Source Oral Oral Pulse Rate 94 H Pulse Rate [Apical] 94 H Respiratory Rate 20 20 Blood Pressure 120/74 Blood Pressure [Right Arm] 120/74 Blood Pressure Mean [Right Arm] 89 Blood Pressure Source Automatic Cuff Blood Pressure Source [Right Arm] Automatic Cuff Blood Pressure Position Sitting Blood Pressure Position [Right Arm] Sitting 02 Sat by Pulse Oximetry 99 Oxygen Delivery Method Room Air Room Air - Lab Data Lab results reviewed: Yes: I reviewed the patient's lab results. Lab Results 09/07/21 21:14: Group A Strep Rapid Negative Orders (Tests/Meds): ORDERS Category Date Time Status Covid-19 Nasal PCR ([facility]) Routine Lab 09/07/21 21:17 Ordered Strep Scrn Group A (Rapid) Stat Lab 09/07/21 21:14 Received [facility] HPI - General Stated complaint: covid test, sore throat,cough,HESS rachelle Time Seen by Provider: 09/07/21 21:18 Mode of Arrival: Ambulatory Source of Information: Patient Description of Symptoms (Recalled from Triage Doc. by RN): cough, sore throat, runny nose, congested, headache, body aches, chills HEENT Symptoms (Recalled from RN notes): Yes Resp Symptoms (Recalled from RN notes): Yes Skin Symptoms (Recalled from RN notes): No MS Symptoms (Recalled from RN notes): No Functional Status (Recalled from RN notes): na - History of Present Illness Provider Complaint: Patient states that she has been having sore throat, fever, chills, body aches with nasal congestion and cough States that she had an achy headache this evening and wanted to come in and get tested for flu, strep and COVID Denies known exposure to covid - Related Data Previous Rx's Medication Instructions Recorded etonogestrel 0.12 mg-ethinyl 1 vag ring VAGINAL Q4W #3 each 06/11/21 estradiol 0.015 mg/24 hr vaginal ring Ondansetron [Zofran 4mg ODT] 4 mg PO TIDP PRN #10 tab 06/28/21 Cefdinir [Omnicef 300mg Capsule] 300 mg PO BID #20 cap 08/13/21 Promethazine HCl [Phenergan 25mg 25 mg PO BID #10 tab 08/18/21 tab] promethazine 12.5 mg tablet 12.5 mg PO Q6H PRN #30 tab 08/21/21 valacyclovir 1 gram tablet 1,000 mg PO BID 7 Days #14 tab 08/21/21 valacyclovir 500 mg tablet 500 mg PO QHS #30 tab 08/27/21 Allergies Allergy/AdvReac Type Severity Reaction Status Date / Time No Known Allergies Allergy Verified 08/21/21 13:36 - Worker's Comp Is this a Worker's Comp case?: No [facility] History - Hepatitis A Screen Drug use history?: No High risk sexual behaviors?: No History of sexually transmitted infection?: No Currently employed?: No Childcare worker?: No Do you have indoor plumbing?: Yes Do you have electricity?: Yes Attestation statement:: This patient has been screened for Hepatitis A risk factors. I have reviewed the patient's past medical history: Yes Medical History: Sergio
[2021-09-07 21:21] VITALS: BP 120/74; PULSE 94; RESP 20; TEMP 36.8; O2SAT 99
[2021-09-07 21:31] LABS: Strep Scrn Group A (Rapid) Negative (Negative)
[2021-09-08 19:05] LABS: UTC Influenza A Antigen Negative (Negative); UTC Influenza B Antigen Negative (Negative)
== END 2021-09-07 21:32 | disposition home or self-care (01) ==
PROVIDERS: Nurse Practitioner; Emergency Provider Nurse Practitioner Family; PCP Internal Medicine Adolescent Medicine
DX: U07.1 COVID-19 (principal); J06.9 Acute upper respiratory infection, unspecified
CPT/HCPCS: 87430; 87804; 99202; C9803; G0463; U0003; U0005

== ENCOUNTER 2021-10-22 13:36 | Emergency (ER) | payer BC, SELFPAY ==
[2021-10-22 14:14] LABS: Apearance,Urine Cloudy (Clear); Color,Urine Dark Yellow (Yellow); Protein,Urine 1+ (Negative)
[2021-10-22 14:15] VITALS: BP 130/83; PULSE 68; RESP 18; TEMP 36.7; O2SAT 98; BMI 26.7
[2021-10-22 14:15] LABS: Bilirubin,Urine Negative (Negative); Blood, Urine 3+ (Negative); Glucose,Urine (UA) Negative (Negative); Ketones,Urine Negative (Negative); UTC Leukocyte Esterase,Urine 3+ (Negative); UTC Nitrate,Urine Negative (Negative); Urobilinogen,Urine 0.2 EU/dl (0.2)
--- NOTE | 2021-10-22 14:38 | HMH.EDUTC ---
[facility] [place] Disposition Clinical Impression: UTI (urinary tract infection) Qualifiers: Urinary tract infection type: site unspecified Hematuria presence: with hematuria Qualified Code(s): N39.0 - Urinary tract infection, site not specified Disposition: Home, Self-Care Condition on Discharge: Good Instructions: Urinary Tract Infection, DI for Urinary Tract Infection (UTI), Phenazopyridine, Nitrofurantoin Additional Instructions: *Increase fluids. Water not Soda or Tea *Start antibiotic immediately and be sure to take as ordered for the FULL length of time although you should start to see improvement over the next 48 hours *Pyridium as needed Remember this medication will turn your urine [place]. This is normal but it will stain what ever it gets on *You should not use Pyridium for more than 48 hours. If so , follow up with your primary physician to review urine culture and ensure that antibiotic is adequate for infection *Be SURE to follow up anytime for new or worsening symptoms with your family doctor. AND in 48 hours for urine culture results with your family doctor, if you do not have a doctor then you may call back to the [facility] for urine culture results and further treatment. We do recommend that you choose and establish care with a Primary Care Physician. AND follow up with them in 10-14 days to repeat UA to ensure infection is resolved and blood no longer present *Be sure to let your PCP know that we sent urine cultures from the [facility] so they can follow up to ensure that you area the on the correct antibiotic Call your doctor office and make appointment for 48 hours (2 days from today) to follow up and get the results of your urine culture and further treatment Prescriptions: Nitrofurantoin Monohyd/M-Cryst [Macrobid 100 mg Capsule] 100 mg PO BID 7 Days #14 cap Transmission Status: Received by [facility] Phenazopyridine HCl [Pyridium 200mg Tablet] 200 pow PO TID #6 tab Transmission Status: Received by [facility] Referrals: Cedric Downs MD [Primary Care Provider] - As needed Time of Disposition: 14:49 Medical Decision Making - Angel Inquiry Pt receiving controlled substance: No Angel was queried for this patient: No Vital Signs: 10/22/21 14:15 10/22/21 15:00 Temperature 98.0 F 98.0 F Temperature Source Oral Pulse Rate 68 Pulse Rate [Right Brachial] 68 Respiratory Rate 18 18 Blood Pressure 130/83 Blood Pressure [Right Arm] 130/83 Blood Pressure Mean [Right Arm] 98 Blood Pressure Source [Right Arm] Automatic Cuff Blood Pressure Position [Right Arm] Sitting 02 Sat by Pulse Oximetry 98 Oxygen Delivery Method Room Air - Lab Data Lab results reviewed: Yes: I reviewed the patient's lab results. Lab Results 10/22/21 13:58: Urine Color Dark yellow, Urine Appearance Cloudy, Urine pH 6.0, Ur Specific [place] 1.030, Urine Protein 1+, Urine Glucose (UA) Negative, Urine Ketones Negative, Urine Blood 3+, Urine Nitrate Negative, Urine Bilirubin Negative, Urine Urobilinogen 0.2, Ur Leukocyte Esterase 3+ A 10/22/21 14:00: Urine HCG, Qual Negative Orders (Tests/Meds): ED MEDICATIONS Discontinued Medications Generic Name Dose Route Start Last Admin Trade Name Freq PRN Reason Stop Dose Admin Ceftriaxone Sodium 1 gm 10/22/21 14:48 10/22/21 14:59 Ceftriaxone 1gm Vial IM 10/22/21 14:49 1 gm ONCE ONE Administration Lidocaine HCl 0 ml 10/22/21 14:48 10/22/21 14:59 Lidocaine 1% 5ml Pf Vial IM 10/22/21 14:49 2 ml ONCE ONE Administration ORDERS Category Date Time Status Urine Culture Stat Micro 10/22/21 14:00 Received [facility] [place] HPI - General Stated complaint: uti, urgency and frequency Time Seen by Provider: 10/22/21 14:38 Mode of Arrival: Ambulatory Source of Information: Patient Limitations: No Limitations Description of Symptoms (Recalled from Triage Doc. by RN): PATIENT C/O URGENCY AND FREQUENCY WITH URINATION X 2 DAYS HEENT Symptoms (Recalled from R
[2021-10-22 14:47] LABS: Urine Pregnancy, HCG Qual. Negative (Negative)
[2021-10-22 15:00] VITALS: BP 130/83; PULSE 68; RESP 18; TEMP 36.7; O2SAT 98
== END 2021-10-22 15:23 | disposition home or self-care (01) ==
PROVIDERS: Emergency Provider Nurse Practitioner; PCP Internal Medicine Adolescent Medicine
DX: N39.0 Urinary tract infection, site not specified (principal); B96.20 Unspecified Escherichia coli [E. coli] as the cause of diseases classified elsewhere; R31.9 Hematuria, unspecified; Z79.899 Other long term (current) drug therapy
CPT/HCPCS: 81003; 81025; 87086; 87088; 87186; 96372; 99284; J0696

== ENCOUNTER 2021-11-29 16:15 | Emergency (ER) | payer BC, SELFPAY ==
[2021-11-29 16:40] VITALS: BP 137/91; PULSE 101; RESP 18; TEMP 36.8; O2SAT 98; BMI 24.0
--- NOTE | 2021-11-29 17:00 | HMH.EDUTC ---
[facility] [place] Disposition Clinical Impression: Acute bronchitis Qualifiers: Bronchitis organism: unspecified organism Qualified Code(s): J20.9 - Acute bronchitis, unspecified Disposition: Home, Self-Care Condition on Discharge: Good Instructions: DI for Acute Bronchitis Additional Instructions: Start antibiotic today. Be sure to complete entire prescription even if feeling better Tylenol and ibuprofen as needed for pain or fever Humidifier/vaporizer/hot steamy shower Follow-up with primary care tomorrow. Follow-up immediately in the ER of the [facility] for new or worsening symptoms or no noticeable improvement over the next 48-72 hours. Stop smoking Start steroids today. Helps with inflammation therefore coughing and wheezing. Follow directions on package. Prescriptions: predniSONE [Prednisone 20mg Tab] 20 mg PO BID #10 tab Transmission Status: Pending to [facility] Azithromycin [Zithromax 250mg tab] 250 mg PO DIRECTED #6 tab Transmission Status: Pending to [facility] Referrals: Cedric Downs MD [Primary Care Provider] - Time of Disposition: 17:07 Medical Decision Making - Angel Inquiry Pt receiving controlled substance: No Vital Signs: 11/29/21 16:40 Temperature 98.3 F Temperature Source Oral Pulse Rate [Right Brachial] 101 H Respiratory Rate 18 Blood Pressure [Right Arm] 137/91 H Blood Pressure Mean [Right Arm] 106 Blood Pressure Source [Right Arm] Automatic Cuff Blood Pressure Position [Right Arm] Sitting 02 Sat by Pulse Oximetry 98 Oxygen Delivery Method Room Air [facility] [place] HPI - General Chief complaint: Urgent Treatment Center Stated complaint: congestion Time Seen by Provider: 11/29/21 17:04 Mode of Arrival: Ambulatory Source of Information: Patient Limitations: No Limitations Description of Symptoms (Recalled from Triage Doc. by RN): PATIENT C/O COUGH, CHEST CONGESTION, AND SORE THROAT SINCE TUESDAY HEENT Symptoms (Recalled from RN notes): Yes Resp Symptoms (Recalled from RN notes): Yes Skin Symptoms (Recalled from RN notes): No MS Symptoms (Recalled from RN notes): No Functional Status (Recalled from RN notes): WNL - History of Present Illness Provider Complaint: 26 yr old female presents for congestion, coughing up thick green sputum, and horseness since - Related Data Previous Rx's Medication Instructions Recorded etonogestrel 0.12 mg-ethinyl 1 vag ring VAGINAL Q4W #3 each 06/11/21 estradiol 0.015 mg/24 hr vaginal ring Ondansetron [Zofran 4mg ODT] 4 mg PO TIDP PRN #10 tab 06/28/21 Cefdinir [Omnicef 300mg Capsule] 300 mg PO BID #20 cap 08/13/21 Promethazine HCl [Phenergan 25mg 25 mg PO BID #10 tab 08/18/21 tab] promethazine 12.5 mg tablet 12.5 mg PO Q6H PRN #30 tab 08/21/21 valacyclovir 1 gram tablet 1,000 mg PO BID 7 Days #14 tab 08/21/21 valacyclovir 500 mg tablet 500 mg PO QHS #30 tab 08/27/21 Nitrofurantoin Monohyd/M-Cryst 100 mg PO BID 7 Days #14 cap 10/22/21 [Macrobid 100 mg Capsule] Phenazopyridine HCl [Pyridium 200 pow PO TID #6 tab 10/22/21 200mg Tablet] Azithromycin [Zithromax 250mg 250 mg PO DIRECTED #6 tab 11/29/21 tab] predniSONE [Prednisone 20mg 20 mg PO BID #10 tab 11/29/21 Tab] Allergies Allergy/AdvReac Type Severity Reaction Status Date / Time No Known Allergies Allergy Verified 08/21/21 13:36 - Worker's Comp Is this a Worker's Comp case?: No [facility] History - Hepatitis A Screen Drug use history?: No High risk sexual behaviors?: No History of sexually transmitted infection?: No Currently employed?: No Childcare worker?: No Do you have indoor plumbing?: Yes Do you have electricity?: Yes Attestation statement:: This patient has been screened for Hepatitis A risk factors. I have reviewed the patient's past medical history: Yes Medical History: Denies:: Anxiety, Cancer, Depression, Diabetes Mellitus Type 1, Diabetes Mellitus Type 2, Hypertension, Internal Pacemake
[2021-11-29 17:07] VITALS: BP 137/91; PULSE 101; RESP 18; TEMP 36.8; O2SAT 98
== END 2021-11-29 17:10 | disposition home or self-care (01) ==
PROVIDERS: Emergency Provider Nurse Practitioner Family; PCP Internal Medicine Adolescent Medicine
DX: J20.9 Acute bronchitis, unspecified (principal); Z79.52 Long term (current) use of systemic steroids; Z79.3 Long term (current) use of hormonal contraceptives
CPT/HCPCS: 99212; G0463

== ENCOUNTER 2022-01-04 12:50 | Emergency (ER) | payer BC, SELFPAY ==
[2022-01-04 14:50] VITALS: BP 0/0; PULSE 0; RESP 0; TEMP -17.7; TEMP 0
== END 2022-01-04 14:55 | disposition left against medical advice (07) ==
LOC: UTC 12:51
PROVIDERS: Emergency Provider Nurse Practitioner; PCP Internal Medicine Adolescent Medicine
DX: Z53.21 Procedure and treatment not carried out due to patient leaving prior to being seen by health care provider (principal)

== ENCOUNTER 2022-02-01 09:00 | Emergency (ER) | payer BC, SELFPAY ==
[2022-02-01 09:15] VITALS: BP 151/89; PULSE 83; RESP 19; TEMP 37.1; O2SAT 98; BMI 23.6
[2022-02-01 09:30] LABS: Adenovirus,PCR Not Detected (NotDetected); Bordetella Pertussis Not Detected (NotDetected); Chlamydophila Pneumoniae, PCR Not Detected (NotDetected); Coronavirus 19, PCR Not Detected (NotDetected); Coronavirus 229E Not Detected (NotDetected); Coronavirus NL63 Not Detected (NotDetected); Coronavirus OC43 Not Detected (NotDetected); Coronovirus HKU1,PCR Not Detected (NotDetected); Human Metapneumovirus Not Detected (NotDetected); Influenza A, PCR Not Detected (NotDetected); Influenza AH1, 2009 Not Detected (NotDetected); Influenza AH1, PCR Not Detected (NotDetected); Influenza AH3,PCR Not Detected (NotDetected); Influenza B, PCR Not Detected (NotDetected); Mycoplasma Pneumoniae, PCR Not Detected (NotDetected); Parainfluenza 1, PCR Not Detected (NotDetected); Parainfluenza 2, PCR Not Detected (NotDetected); Parainfluenza 3, PCR Not Detected (NotDetected); Parainfluenza 4, PCR Not Detected (NotDetected); Respiratory Syncytial Virus Not Detected (NotDetected); Rhinovirus/Enterovirus Not Detected (NotDetected)
--- NOTE | 2022-02-01 09:40 | HMH.EDUTC ---
[facility] [place] Disposition Clinical Impression: URI (upper respiratory infection) Qualifiers: URI type: unspecified URI Qualified Code(s): J06.9 - Acute upper respiratory infection, unspecified Conjunctivitis Qualifiers: Conjunctivitis type: unspecified Laterality: left Qualified Code(s): H10.9 - Unspecified conjunctivitis Disposition: Home, Self-Care Condition on Discharge: Good Instructions: Sore Throat, Conjunctivitis, DI for Conjunctivitis, DI for Nasal Congestion Additional Instructions: *Monitor Temp, Over the counter Motrin or Tylenol as directed/as needed Tylenol every 4 hours and Motrin every 6 hours (as long as your family doctor has told you that you can take it) for fever or pain. and straight to ER if unable to lower temp less than 101.0 after medication given *Warm salt water gargles may help to soothe the throat *Throat Lozenges *Warm fluids like tea with honey may help to soothe the throat *Sleep elevated *Humidifier/Vaporizer Your throat swab was sent for culture. Those results are typically sent to your primary care. Be sure to follow up in 2-3 days with your family doctor/primary care physician if no improvement so they can review those result and treat if necessary. If you don?t have a primary care doctor, I recommend you get one but in the mean time, you will have to return to a walk in clinic Follow up IMMEDIATELY for new or worsening symptoms or no Noticeable improvement over the next 48-72 hours. 911 for difficulty breathing or swallowing You were tested for today for COVID19 your test result should be back in the next 24-48 hours, you may check your results on the [facility] My Health Portal Make sure to take your Vitamins Vit. C Vit D and Zinc if you can take them Prescriptions: Polymyxin B Sulf/Trimethoprim [Polytrim Eye Drops] 2 drp OP Q6H 7 Days #10 ml Transmission Status: Pending to [id number] Azithromycin [Z-Duy 250mg Tab] 250 mg PO DIRECTED #6 tab [facility]: [facility] Referrals: Isabel Palma APRN [Primary Care Provider] - As needed Forms: Work/School Release Time of Disposition: 09:55 Medical Decision Making - Angel Inquiry Pt receiving controlled substance: No Angel was queried for this patient: No Vital Signs: 02/01/22 09:15 Temperature 98.7 F Temperature Source Oral Pulse Rate [Right Brachial] 83 Respiratory Rate 19 Blood Pressure [Right Arm] 151/89 H Blood Pressure Mean [Right Arm] 109 Blood Pressure Source [Right Arm] Automatic Cuff Blood Pressure Position [Right Arm] Sitting 02 Sat by Pulse Oximetry 98 Oxygen Delivery Method Room Air - Lab Data Lab results reviewed: Yes: I reviewed the patient's lab results. Lab Results 02/01/22 09:17: Group A Strep Rapid Negative Orders (Tests/Meds): ORDERS Category Date Time Status Full Resp Panel w/COVID ([facility]) Routine Lab 02/01/22 09:17 Received Strep Screen Confirmation Stat Micro 02/01/22 09:17 Received Medical Decision Narrative: Patient states that she has taken azithromycin in the past without complications or reactions [facility] [place] HPI - General Stated complaint: sore throat, bilateral ear pain, congestion Time Seen by Provider: 02/01/22 09:40 Mode of Arrival: Ambulatory Source of Information: Patient Limitations: No Limitations Description of Symptoms (Recalled from Triage Doc. by RN): PATIENT C/O SORE THROAT, RUNNY NOSE, NASAL CONGESTION, EAR PAIN, AND EYE SWELLING/DRAINAGE X 3 DAYS HEENT Symptoms (Recalled from RN notes): Yes Resp Symptoms (Recalled from RN notes): No Skin Symptoms (Recalled from RN notes): No MS Symptoms (Recalled from RN notes): No Functional Status (Recalled from RN notes): WNL - History of Present Illness Provider Complaint: Patient states that she had surgery on her right hand/wrist last week and afterwards she was complaining that she was having sore throat, sinus congestion and drainage, eye redness, drianage and matting, bilateral ear
[2022-02-01 09:42] LABS: Strep Scrn Group A (Rapid) Negative (Negative)
[2022-02-01 09:55] VITALS: BP 151/89; PULSE 83; RESP 19; TEMP 37.1; O2SAT 98
== END 2022-02-01 10:00 | disposition home or self-care (01) ==
PROVIDERS: Emergency Provider Nurse Practitioner; PCP Nurse Practitioner Family
DX: J02.9 Acute pharyngitis, unspecified (principal); H10.9 Unspecified conjunctivitis; H92.03 Otalgia, bilateral; Z20.822 Contact with and (suspected) exposure to COVID-19; Z79.52 Long term (current) use of systemic steroids; Z79.899 Other long term (current) drug therapy; Z79.890 Hormone replacement therapy
CPT/HCPCS: 87430; 87581; 87632; 87798; 99213; C9803; G0463; U0003; U0005

== ENCOUNTER 2022-07-11 18:15 | Emergency (ER) | payer BC, SELFPAY ==
[2022-07-11 19:25] VITALS: BP 139/91; PULSE 103; RESP 19; TEMP 37.3; O2SAT 99; BMI 25.2
--- NOTE | 2022-07-11 19:48 | EXP.UTC ---
Discharge Plan Disposition Patient Disposition: Home, Self-Care Condition: Good Prescriptions Prescriptions: New azithromycin [Zithromax Z-Duy] 250 mg tablet See Rx Instructions .ROUTE .COMPLEX 5 Days Qty: 6 0RF Rx Instructions: For 250 mg dose pack: take 500 mg today (day 1), then 250 mg for 4 days (days 2-5) No Action valacyclovir [Valtrex] 1 gram tablet 1,000 mg PO BID 7 Days Qty: 14 0RF promethazine 12.5 mg tablet 12.5 mg PO Q6H PRN (Reason: nausea and vomiting) Qty: 30 2RF etonogestrel-ethinyl estradiol 0.12-0.015 mg/24 hr ring 1 vag ring VAGINAL Q4W Qty: 3 4RF Rx Instructions: leave in place for 3 weeks of a 4-week cycle valacyclovir [Valtrex] 500 mg tablet 500 mg PO QHS Qty: 30 11RF ondansetron 4 MG tablet,disintegrating 4 mg PO TIDP PRN (Reason: Nausea) Qty: 10 0RF azithromycin 250 MG tablet 250 mg PO DIRECTED Qty: 6 0RF Rx Instructions: Take two (2) tablets on day #1, then one (1) tablet day #2 thru #5 prednisone 20 MG tablet 20 mg PO BID Qty: 10 0RF cefdinir 300 MG capsule 300 mg PO BID Qty: 20 0RF promethazine 25 MG tablet 25 mg PO BID Qty: 10 0RF phenazopyridine 200 MG tablet 200 pow PO TID Qty: 6 0RF nitrofurantoin monohyd/m-cryst 100 MG capsule 100 mg PO BID 7 Days Qty: 14 0RF azithromycin 250 MG tablet 250 mg PO DIRECTED Qty: 6 0RF Rx Instructions: Take two (2) tablets on day #1, then one (1) tablet day #2 thru #5 polymyxin B sulf-trimethoprim 10 ML drops 2 drp OP Q6H 7 Days Qty: 10 0RF Rx Instructions: 2 drops in left eye every 6 hours for 7 days Referrals Follow up/Referrals: Cedric Downs MD [Primary Care Provider] - See instructions Activity Restrictions/Add. Instructions Additional Instructions/Restrictions: *Monitor Temp, Over the counter Motrin or Tylenol as directed/as needed Tylenol every 4 hours and Motrin every 6 hours (as long as your family doctor has told you that you can take it) for fever or pain. and straight to ER if unable to lower temp less than 101.0 after medication given *Warm salt water gargles may help to soothe the throat *Throat Lozenges? *Warm fluids like tea with honey may help to soothe the throat? *Sleep elevated *Humidifier/Vaporizer *If you did not take Penicillin shot or was unable to, start taking antibiotic immediately and make sure that you take it for the FULL length of time although you should start to feel better in 24-48 hours *change toothbrush and toothpaste 24-48 hours after starting to take antibiotics so you do not reinfect yourself Monitor Temp. Tylenol and/or Ibuprofen as needed. ER if fever is no less than 101 despite alternating Tylenol and Ibuprofen * Encourage fluids, water, Gatorade, powerade, pedialyte if /toddler/or child *Cold fluids, popsicles and ice cream may feel good on his throat * Follow up IMMEDIATELY for new or worsening symptoms or no Noticeable improvement over the next 48-72 hours. 911 for difficulty breathing or swallowing Clinical Impressions Clinical Impression: Strep throat Stand Alone Forms Stand Alone Forms: Work/School Release Instructions Patient Instructions: DI for Strep Throat, Strep Throat Discharge ED Provider: Jovan Riddle [facility] HPI General Stated complaint: Sore throat; cough; weakness; congestion Mode of Arrival: Ambulatory Source of Information: Patient Limitations: No Limitations Time Seen by Provider: 07/11/22 19:49 Description of Symptoms (Recalled from Triage Doc. by RN): PATIENT C/O SORE THROAT AND BODY ACHES HEENT Symptoms (Recalled from RN notes): Yes Resp Symptoms (Recalled from RN notes): No Skin Symptoms (Recalled from RN notes): No MS Symptoms (Recalled from RN notes): No Functional Status (Recalled from RN notes): WNL History of Present Illness Provider Complaint: Patient states that she has been having sore throat, headache and body aches
[2022-07-11 19:57] LABS: UTC Influenza A Antigen Negative (Negative); UTC Influenza B Antigen Negative (Negative); UTC Strep Screen (Rapid) Positive (Negative)
[2022-07-11 20:05] VITALS: BP 139/91; PULSE 103; RESP 19; TEMP 37.3; O2SAT 99
== END 2022-07-11 20:08 | disposition home or self-care (01) ==
PROVIDERS: Nurse Practitioner; Emergency Provider Emergency Medicine; PCP Internal Medicine Adolescent Medicine
DX: J02.0 Streptococcal pharyngitis (principal); B95.0 Streptococcus, group A, as the cause of diseases classified elsewhere; R53.1 Weakness; R05.9 Cough, unspecified; M79.10 Myalgia, unspecified site; R11.2 Nausea with vomiting, unspecified; R09.81 Nasal congestion; F32.A Depression, unspecified; F41.9 Anxiety disorder, unspecified; Z79.52 Long term (current) use of systemic steroids; Z79.3 Long term (current) use of hormonal contraceptives; Z79.899 Other long term (current) drug therapy; Z87.440 Personal history of urinary (tract) infections
CPT/HCPCS: 87804; 87880; 99213; G0463

== ENCOUNTER 2022-10-04 18:00 | Emergency (ER) | payer BC, SELFPAY ==
[2022-10-04 18:15] VITALS: BP 156/96; PULSE 118; RESP 20; TEMP 37.3; O2SAT 95; BMI 26.6
--- NOTE | 2022-10-04 18:21 | EXP.UTC ---
Discharge Plan Disposition Patient Disposition: Home, Self-Care Condition: Good Prescriptions Prescriptions: New amoxicillin [amoxicillin] 500 mg tablet 500 mg PO TID 10 Days Qty: 30 0RF methylprednisolone 4 mg Tablets,Dose Pack 4 mg PO DIRECTED Qty: 21 0RF mmvmzjcxtrznsfi-sfvfojkpx-EI [Bromfed DM] 2-30-10 mg/5 mL Syrup 5 ml PO Q6H PRN (Reason: Cough) Qty: 240 0RF Discontinued promethazine 12.5 mg tablet 12.5 mg PO Q6H PRN (Reason: nausea and vomiting) Qty: 30 2RF ondansetron 4 MG tablet,disintegrating 4 mg PO TIDP PRN (Reason: Nausea) Qty: 10 0RF azithromycin 250 MG tablet 250 mg PO DIRECTED Qty: 6 0RF Rx Instructions: Take two (2) tablets on day #1, then one (1) tablet day #2 thru #5 prednisone 20 MG tablet 20 mg PO BID Qty: 10 0RF azithromycin [Zithromax Z-Duy] 250 mg tablet See Rx Instructions .ROUTE .COMPLEX 5 Days Qty: 6 0RF Rx Instructions: For 250 mg dose pack: take 500 mg today (day 1), then 250 mg for 4 days (days 2-5) cefdinir 300 MG capsule 300 mg PO BID Qty: 20 0RF promethazine 25 MG tablet 25 mg PO BID Qty: 10 0RF phenazopyridine 200 MG tablet 200 pow PO TID Qty: 6 0RF nitrofurantoin monohyd/m-cryst 100 MG capsule 100 mg PO BID 7 Days Qty: 14 0RF azithromycin 250 MG tablet 250 mg PO DIRECTED Qty: 6 0RF Rx Instructions: Take two (2) tablets on day #1, then one (1) tablet day #2 thru #5 polymyxin B sulf-trimethoprim 10 ML drops 2 drp OP Q6H 7 Days Qty: 10 0RF Rx Instructions: 2 drops in left eye every 6 hours for 7 days No Action valacyclovir [Valtrex] 1 gram tablet 1,000 mg PO BID 7 Days Qty: 14 0RF valacyclovir [Valtrex] 500 mg tablet 500 mg PO QHS Qty: 30 11RF etonogestrel-ethinyl estradiol [EluRyng] 0.12-0.015 mg/24 hr ring See Rx Instructions .ROUTE .COMPLEX Qty: 3 0RF Dose Instruction: INSERT 1 VAGINALLY ONCE EVERY MONTH. LEAVE IN PLACE FOR 3 WEEKS OF A 4 WEEK CYCLE Rx Instructions: INSERT 1 VAGINALLY ONCE EVERY MONTH. LEAVE IN PLACE FOR 3 WEEKS OF A 4 WEEK CYCLE Referrals Follow up/Referrals: Cedric Downs MD [Primary Care Provider] - See instructions Activity Restrictions/Add. Instructions Additional Instructions/Restrictions: Drink plenty of fluids. Take tylenol or ibuprofen for pain or fever. Take the medications as directed. Follow up with your regular doctor. GO TO THE ER FOR ANY WORSENING SYMPTOMS Clinical Impressions Clinical Impression: Sinusitis, Bronchitis Instructions Patient Instructions: DI for Sinusitis, DI for Acute Bronchitis Discharge ED Provider: Daniel Solorio [facility] General Stated complaint: cough runny nose congestio Time Seen by Provider: 10/04/22 18:21 History of Present Illness Provider Complaint: She states that for the past 2 days she has had sinus congestion, chest congestion, cough and a sore throat. Related Data Previous Rx's Medication Instructions Recorded valacyclovir 1 gram tablet 1,000 mg PO BID 7 days #14 tabs 08/21/21 (Valtrex) valacyclovir 500 mg tablet 500 mg PO QHS #30 tabs 08/27/21 (Valtrex) etonogestrel 0.12 mg-ethinyl See Rx Instructions .Route 08/04/22 estradiol 0.015 mg/24 hr vaginal .COMPLEX #3 ea ring (EluRyng) amoxicillin 500 mg tablet 500 mg PO TID 10 days #30 tabs 10/04/22 dldylhjrlerzzou-vvlhsphkzxzqdco-PR 5 ml PO Q6H PRN Cough #240 mL 10/04/22 2 mg-30 mg-10 mg/5 mL oral syrup (Bromfed DM) methylprednisolone 4 mg tablets in 4 mg PO DIRECTED #21 tabs 10/04/22 a dose pack Allergies Allergy/AdvReac Type Severity Reaction Status Date / Time No Known Allergies Allergy Verified 08/21/21 13:36 [facility] Disclaimer: The information contained in this section may have been updated after the patient was seen, as this information can be updated by other users. Medical History Anxiety Depres
[2022-10-04 18:57] VITALS: BP 156/96; PULSE 118; RESP 20; TEMP 37.3; O2SAT 95
== END 2022-10-04 18:59 | disposition home or self-care (01) ==
PROVIDERS: Emergency Provider Nurse Practitioner Family; PCP Internal Medicine Adolescent Medicine
DX: J32.9 Chronic sinusitis, unspecified (principal); J40 Bronchitis, not specified as acute or chronic
CPT/HCPCS: 99212; 99214; G0463

== ENCOUNTER 2022-11-26 16:43 | Emergency (ER) | payer MEDICAID, SELFPAY ==
[2022-11-26 16:45] VITALS: BP 131/88; PULSE 120; RESP 17; TEMP 37.2; O2SAT 98; BMI 27.4
--- NOTE | 2022-11-26 16:51 | PC.NURSE ---
DR DRAKE AT BEDSIDE
--- NOTE | 2022-11-26 16:54 | CT_ITS ---
PROCEDURE INFORMATION: Exam: CT Abdomen And Pelvis With Contrast Exam date and time: 11/26/2022 5:49 PM Age: 27 years old Clinical indication: Abdominal pain; Flank; Left; Additional info: UTI, L flank pain, hr 150 TECHNIQUE: Imaging protocol: Computed tomography of the abdomen and pelvis with contrast. Radiation optimization: All CT scans at this facility use at least one of these dose optimization techniques: automated exposure control; mA and/or kV adjustment per patient size (includes targeted exams where dose is matched to clinical indication); or iterative reconstruction. Contrast material: ISOVUE; Contrast volume: 75 ml; Contrast route: IV; REPORTING DATA: Count of CT and Cardiac NM exams in prior 12 months: This patient has received 0 known CTs and 0 known cardiac nuclear medicine studies in the 12 months prior to the current study. COMPARISON: ABDPELW CT ABD PELVIS W/ CONTRAST 12/12/2015 4:32 AM FINDINGS: Liver: Normal. No mass. Gallbladder and bile ducts: Gallbladder is surgically absent. Pancreas: Normal. No ductal dilation. Spleen: Normal. No splenomegaly. Adrenal glands: Normal. No mass. Kidneys and ureters: Subcentimeter simple bilateral renal cortical cysts are noted, the largest measuring 1.6 cm in the right kidney. No evidence of solid renal mass, urolithiasis or hydronephrosis. There is diffuse mild wall thickening and enhancement of the left ureter with periureteral fatty stranding, compatible with urinary tract infection. No evidence of antonietta pyelonephritis. Stomach and bowel: Unremarkable. No obstruction. No mucosal thickening. Appendix: No evidence of appendicitis. Intraperitoneal space: Unremarkable. No free air. No significant fluid collection. Vasculature: Unremarkable. No abdominal aortic aneurysm. Lymph nodes: Unremarkable. No enlarged lymph nodes. Urinary bladder: Nondistended and poorly evaluated. Reproductive: Unremarkable as visualized. Bones/joints: Unremarkable. No acute fracture. Soft tissues: Unremarkable. IMPRESSION: Findings of the left urinary tract infection, specifically ureteritis. No evidence of antonietta pyelonephritis or hydronephrosis. COMMENTS: Consistent with the [employer]'s Incidental Findings Committee white paper (J Am Jeremy Radiol 2018): Any incidental renal lesion less than 1 cm or classified as too small to characterize, or any incidental cystic renal lesion characterized as simple-appearing, is likely benign. No follow-up imaging is recommended for these lesions per consensus recommendations based on imaging criteria.
--- NOTE | 2022-11-26 16:57 | HMH.EDGENADL ---
Discharge Plan Disposition Patient Disposition: Home, Self-Care Condition: Fair Prescriptions Prescriptions: New ciprofloxacin HCl 500 mg tablet 500 mg PO BID 10 Days Qty: 20 0RF No Action valacyclovir [Valtrex] 1 gram tablet 1,000 mg PO BID 7 Days Qty: 14 0RF valacyclovir [Valtrex] 500 mg tablet 500 mg PO QHS Qty: 30 11RF etonogestrel-ethinyl estradiol [EluRyng] 0.12-0.015 mg/24 hr ring See Rx Instructions .ROUTE .COMPLEX Qty: 3 0RF Dose Instruction: INSERT 1 VAGINALLY ONCE EVERY MONTH. LEAVE IN PLACE FOR 3 WEEKS OF A 4 WEEK CYCLE Rx Instructions: INSERT 1 VAGINALLY ONCE EVERY MONTH. LEAVE IN PLACE FOR 3 WEEKS OF A 4 WEEK CYCLE amoxicillin [amoxicillin] 500 mg tablet 500 mg PO TID 10 Days Qty: 30 0RF methylprednisolone 4 mg Tablets,Dose Pack 4 mg PO DIRECTED Qty: 21 0RF ayhlwfyczemhwor-efybzonyp-XU [Bromfed DM] 2-30-10 mg/5 mL Syrup 5 ml PO Q6H PRN (Reason: Cough) Qty: 240 0RF Referrals Follow up/Referrals: Isabel Palma APRN [Primary Care Provider] - See instructions Activity Restrictions/Add. Instructions Additional Instructions/Restrictions: At this time it was felt you are safe to be discharged home. If new or worsening symptoms please do not hesitate to return for continued evaluation. Please take antibiotics as prescribed. Clinical Impressions Clinical Impression: Ureteritis Instructions Patient Instructions: DI for Acute Abdominal Pain Discharge ED Provider: Damaso Ball General Adult HPI General Chief complaint: Abdominal Pain Stated complaint: L flank pain Time Seen by Provider: 11/26/22 16:57 Mode of Arrival: Ambulatory Limitations: No Limitations Description of Symptoms (Recalled from ER Triage Doc. by RN): PT WITH LEFT FLANK AND ABDOMINAL PAIN. INCREASED SINCE TUESDAY, PT TREATED ON TUESDAY AT PCP FOR UTI. REPORTS N/V History of Present Illness HPI narrative: Patient is a 27-year-old female with no significant past medical history presents emergency department for evaluation of left flank pain. Patient was reportedly diagnosed with urinary tract infection when she presented to her family practitioner clinic with dysuria. Symptoms have been refractory to nitrofurantoin. She has since had progressive flank pain wrapping around to her back. Symptoms are moderate to severe in intensity, decreased p.o. intake and decreased urine output. Due to severity of symptoms she presents here for continued evaluation at this time. Last menstrual period multiple months ago on control. Related Data Previous Rx's Medication Instructions Recorded valacyclovir 1 gram tablet 1,000 mg PO BID 7 days #14 tabs 08/21/21 (Valtrex) valacyclovir 500 mg tablet 500 mg PO QHS #30 tabs 08/27/21 (Valtrex) amoxicillin 500 mg tablet 500 mg PO TID 10 days #30 tabs 10/04/22 fhwsdmrgadtvxvb-hmsyqphpxddrrcl-LD 5 ml PO Q6H PRN Cough #240 mL 10/04/22 2 mg-30 mg-10 mg/5 mL oral syrup (Bromfed DM) methylprednisolone 4 mg tablets in 4 mg PO DIRECTED #21 tabs 10/04/22 a dose pack etonogestrel 0.12 mg-ethinyl See Rx Instructions .Route 11/25/22 estradiol 0.015 mg/24 hr vaginal .COMPLEX #3 ea ring (EluRyng) ciprofloxacin HCl 500 mg tablet 500 mg PO BID ureteritis 10 days 11/26/22 #20 tabs Allergies Allergy/AdvReac Type Severity Reaction Status Date / Time No Known Allergies Allergy Verified 08/21/21 13:36 PFSH PFS Disclaimer: The information contained in this section may have been updated after the patient was seen, as this information can be updated by other users. Medical History Anxiety Depression Urinary tract infection Surgical History History of appendectomy History of cholecystectomy Social History Smoking Status: Never smoker second hand exposure: No alcohol inta
[2022-11-26 17:00] VITALS: BP 121/79; PULSE 129; O2SAT 99
[2022-11-26 17:23] LABS: Chloride 102 mmol/L (98-107); Potassium 3.5 mmoL/L (3.5-5.1); Sodium 137 mmol/L (136-145)
[2022-11-26 17:25] LABS: Basophils % 0.4 % (0.1-2.0); Blood Urea Nitrogen 11 mg/dl (7-17); Creatinine Clearance Estimated 121 mL/min (50-200); Eosinophils % 0.1 % (0.1-12.0); Estimated Glomerular Filt Rate 86 ml/min (>60); GFR (African American) 104 ML/MIN (>60); Hematocrit 43.7 % (37.0-47.0); Hemoglobin 14.7 g/dL (12.2-16.2); Lymphocytes # 1.4 K/mm3 (0.7-4.5); Mean Corpuscular HGB Conc 33.7 g/dL (31.8-35.4); Mean Corpuscular Hemoglobin 27.5 pg (27.0-31.2); Mean Corpuscular Volume 81.6 fl (81-99); Mean Platelet Volume 7.8 fl (7.4-10.4); Monocytes # 0.7 K/mm3 (0.1-1.0); Monocytes % 6.4 % (1.7-9.3); Platelet Count 267 K/mm3 (142-424); Red Blood Count 5.35 M/mm3 (4.20-5.40); Red Cell Distribution Width 13.3 % (11.5-17.5); White Blood Count 10.1 K/mm3 (4.8-10.8)
[2022-11-26 17:26] LABS: Alanine Aminotransferase 24 U/L (12-78); Albumin Level 4.6 g/dl (3.5-5.0); Albumin/Globulin Ratio 1.3 (1.1-1.8); Alkaline Phosphatase 106 U/L (38-126); Anion Gap 14.5 mEq/L (5-15); Aspartate Amino Transferase 25 U/L (14-36); Bilirubin,Total 1.1 mg/dl (0.2-1.3); Calcium 9.4 mg/dl (8.4-10.2); Carbon Dioxide 24 mmol/L (22.0-30.0); Globulin 3.6 g/dL (1.3-3.2); Glucose 102 mg/dl (74-100); Total Protein,Serum 8.2 g/dl (6.3-8.2)
--- NOTE | 2022-11-26 17:26 | ECG_ITS ---
APPROVED REPORT Exam: Resting ECG HR:93 bpm ECG Measurements Heart Rate 93 AXES MD 170 P 61 QRSd 72 QRS 37 QT 356 T 28 QTc 407 Conclusion SINUS RHYTHM NONSPECIFIC T-WAVE ABNORMALITY BORDERLINE ECG UNCONFIRMED REPORT Electronically signed by : Cedric Downs MD 11/27/2022 08:33:02
[2022-11-26 17:27] LABS: Lactic Acid 0.9 mmol/L (0.7-2.1)
[2022-11-26 17:30] VITALS: BP 133/95; PULSE 95; O2SAT 95
[2022-11-26 17:41] LABS: HCG Qualitative, Serum Negative (Negative)
--- NOTE | 2022-11-26 17:45 | PC.NURSE ---
PT ASSISTED TO BR
--- NOTE | 2022-11-26 17:51 | PC.NURSE ---
PT TO CT AT THIS TIME
--- NOTE | 2022-11-26 17:54 | PC.NURSE ---
pt to radiology
[2022-11-26 17:57] LABS: Microscopic, Urine URINE MICROSCOPIC (MICROSCOPIC)
[2022-11-26 18:05] VITALS: BP 138/95; PULSE 95; O2SAT 99
[2022-11-26 18:12] LABS: Appearance,Urine CLEAR (Clear); Blood, Urine TRACE-I (Negative); Color,Urine YELLOW (Yellow); Glucose,Urine (UA) Negative (Negative); Ketones,Urine 2+ (Negative); Leukocyte Esterase,Urine 2+ (Negative); Nitrate,Urine Negative (Negative); Protein,Urine TRACE (Negative); Specific Gravity, Urine 1.015 (1.005-1.030)
[2022-11-26 18:28] LABS: Bacteria,Urine 1+ /lpf; Bilirubin,Urine 1+ (Negative); Mucus,Urine 1+ /lpf; RBC,Urine Occasional #/hpf (0-3); WBC,Urine 20-50 #/hpf (0-3)
[2022-11-26 18:30] VITALS: BP 129/86; PULSE 89; O2SAT 100
--- NOTE | 2022-11-26 18:36 | PC.NURSE ---
DR DRAKE AT BEDSIDE TO REEVALUATE PT
[2022-11-26 18:55] VITALS: BP 129/86; PULSE 93; RESP 17; TEMP 37.7; O2SAT 97
== END 2022-11-26 18:59 | disposition home or self-care (01) ==
PROVIDERS: Emergency Provider Emergency Medicine; PCP Nurse Practitioner Family
DX: N28.89 Other specified disorders of kidney and ureter (principal); R10.9 Unspecified abdominal pain
CPT/HCPCS: 74177; 80053; 81001; 83605; 84703; 85025; 87040; 87086; 93005; 96360; 96374; 96375; 99285; J2405; Q9967

== ENCOUNTER → 2023-01-07 15:58 | Outpatient (CLI) | payer MEDICAID, SELFPAY ==
[2023-01-07 16:54] LABS: Hemoglobin A1C 4.7 % (4.0-6.0)
[2023-01-07 17:08] LABS: Alanine Aminotransferase 68 U/L (12-78); Albumin Level 4.6 g/dl (3.5-5.0); Albumin/Globulin Ratio 1.5 (1.1-1.8); Alkaline Phosphatase 81 U/L (38-126); Anion Gap 14.6 mEq/L (5-15); Aspartate Amino Transferase 66 U/L (14-36); Basophils # 0.1 K/mm3 (0-0.2); Basophils % 0.6 % (0.1-2.0); Bilirubin,Total 0.4 mg/dl (0.2-1.3); Blood Urea Nitrogen 15 mg/dl (7-17); Calcium 9.8 mg/dl (8.4-10.2); Carbon Dioxide 27 mmol/L (22.0-30.0); Chloride 101 mmol/L (98-107); Chol/HDL Ratio 4.3 (1-3.5); Cholesterol 219 mg/dl (140-200); Eosinophils % 0.3 % (0.1-12.0); Estimated Glomerular Filt Rate 120 ml/min (>60); GFR (African American) 145 ML/MIN (>60); Glucose 85 mg/dl (74-100); HDL Cholesterol 51 mg/dl (40-60); Hematocrit 44.8 % (37.0-47.0); Hemoglobin 14.7 g/dL (12.2-16.2); Lymphocytes # 1.8 K/mm3 (0.7-4.5); Lymphocytes % 22.9 % (10-50); Mean Corpuscular HGB Conc 32.9 g/dL (31.8-35.4); Mean Corpuscular Hemoglobin 26.9 pg (27.0-31.2); Mean Corpuscular Volume 81.7 fl (81-99); Mean Platelet Volume 7.2 fl (7.4-10.4); Monocytes # 0.4 K/mm3 (0.1-1.0); Monocytes % 5.4 % (1.7-9.3); Neutrophils # 5.7 K/mm3 (1.8-7.8); Neutrophils % 70.8 % (37.0-80.0); Platelet Count 287 K/mm3 (142-424); Potassium 4.6 mmoL/L (3.5-5.1); Red Blood Count 5.48 M/mm3 (4.20-5.40); Red Cell Distribution Width 13.2 % (11.5-17.5); Sodium 138 mmol/L (136-145); Total Protein,Serum 7.6 g/dl (6.3-8.2); Triglycerides 364 mg/dl (30-150); VLDL Cholesterol 73 mg/dL (0-40); White Blood Count 8.1 K/mm3 (4.8-10.8)
[2023-01-07 17:18] LABS: Direct LDL Cholesterol 98.52 mg/dL (100-129)
[2023-01-07 17:38] LABS: Thyroid Stimulating Hormone 0.41 uIU/mL (0.465-4.68)
[2023-01-11 09:42] LABS: Free T4 (Free Thyroxine) 1.27 ng/dl (0.78-2.19)
== END ==
PROVIDERS: PCP Nurse Practitioner Family; Visit Provider Nurse Practitioner Family
DX: I10 Essential (primary) hypertension (principal); E03.9 Hypothyroidism, unspecified
CPT/HCPCS: 36415; 80053; 80061; 83036; 84439; 84443; 85025

== ENCOUNTER 2023-06-21 15:46 | Emergency (ER) | payer MEDICAID, SELFPAY ==
[2023-06-21 16:00] VITALS: BP 133/84; PULSE 99; RESP 18; TEMP 37; O2SAT 98; BMI 29.5
--- NOTE | 2023-06-21 16:16 | EXP.UTC ---
Discharge Plan Disposition Patient Disposition: Home, Self-Care Condition: Good Prescriptions Prescriptions: New benzonatate 100 mg capsule 100 mg PO TID PRN (Reason: cough) Qty: 30 0RF azithromycin [Zithromax Z-Duy] 250 mg tablet See Rx Instructions .ROUTE .COMPLEX 5 Days Qty: 6 0RF Rx Instructions: For 250 mg dose pack: take 500 mg today (day 1), then 250 mg for 4 days (days 2-5) methylprednisolone [Medrol (Duy)] 4 mg tablets,dose pack See Rx Instructions .Route .COMPLEX 6 Days Qty: 21 0RF Rx Instructions: taper pack; No Action etonogestrel-ethinyl estradiol [EluRyng] 0.12-0.015 mg/24 hr ring See Rx Instructions .ROUTE .COMPLEX Qty: 3 0RF Dose Instruction: INSERT 1 VAGINALLY ONCE EVERY MONTH. LEAVE IN PLACE FOR 3 WEEKS OF A 4 WEEK CYCLE Rx Instructions: INSERT 1 VAGINALLY ONCE EVERY MONTH. LEAVE IN PLACE FOR 3 WEEKS OF A 4 WEEK CYCLE famotidine 20 mg tablet 20 mg PO BID Patient Comments: TAKE ONE TABLET BY MOUTH TWICE DAILY propranolol 20 mg tablet 20 mg PO BID Patient Comments: TAKE ONE TABLET BY MOUTH TWICE DAILY Referrals Follow up/Referrals: Isabel Palma APRN [Primary Care Provider] - See instructions Activity Restrictions/Add. Instructions Additional Instructions/Restrictions: *Monitor Temp, Over the counter Motrin or Tylenol as directed/as needed Tylenol every 4 hours and Motrin every 6 hours (as long as your family doctor has told you that you can take it) for fever or pain. and straight to ER if unable to lower temp less than 101.0 after medication given *Warm salt water gargles may help to soothe the throat *Throat Lozenges? *Warm fluids like tea with honey may help to soothe the throat? *Sleep elevated *Humidifier/Vaporizer Follow up IMMEDIATELY for new or worsening symptoms or no Noticeable improvement over the next 48-72 hours. 911 for difficulty breathing or swallowing Clinical Impressions Clinical Impression: Sinusitis Qualifiers: Sinusitis location: unspecified location Chronicity: unspecified Qualified Code(s): J32.9 - Chronic sinusitis, unspecified Stand Alone Forms Stand Alone Forms: Work/School Release Instructions Patient Instructions: DI for Sinusitis, Sinusitis Discharge ED Provider: Adenike Kiser [facility] General Stated complaint: cough,rachelle, runny nose Mode of Arrival: Ambulatory Source of Information: Patient Limitations: No Limitations Time Seen by Provider: 06/21/23 16:16 Description of Symptoms (Recalled from Triage Doc. by RN): Cough, runny nose, congestion, and low grade fever HEENT Symptoms (Recalled from RN notes): Yes Resp Symptoms (Recalled from RN notes): No Skin Symptoms (Recalled from RN notes): No MS Symptoms (Recalled from RN notes): No Functional Status (Recalled from RN notes): n/a History of Present Illness Provider Complaint: Patient states that her kids was sick last week and then she started getting sick States that she has been having sinus congestion and pressure, low grade fever headache and feeling like it is trying to move into her chest States that today she was feeling worse so she came in to get checked Related Data Home Medications Medication Instructions Recorded Confirmed famotidine 20 mg tablet 20 mg PO BID 06/21/23 06/21/23 propranolol 20 mg tablet 20 mg PO BID . 06/21/23 06/21/23 Previous Rx's Medication Instructions Recorded etonogestrel 0.12 mg-ethinyl See Rx Instructions .Route 02/16/23 estradiol 0.015 mg/24 hr vaginal .COMPLEX #3 ea ring (EluRyng) azithromycin 250 mg tablet See Rx Instructions PO .COMPLEX 5 06/21/23 (Zithromax Z-Duy) days #6 tabs benzonatate 100 mg capsule 100 mg PO TID PRN cough #30 caps 06/21/23 methylprednisolone 4 mg tablets in See Rx Instructions .Route 06/21/23 a dose pack (Medrol (Duy)) .COMPLEX 6 days #21 tabs Allergies Allergy/AdvReac Type Severity Reaction Status Date
[2023-06-21 16:39] VITALS: BP 133/84; PULSE 99; RESP 18; TEMP 37; O2SAT 98
== END 2023-06-21 16:39 | disposition home or self-care (01) ==
PROVIDERS: Emergency Provider Nurse Practitioner; PCP Nurse Practitioner Family
DX: J01.90 Acute sinusitis, unspecified (principal)
CPT/HCPCS: 87635; 99212; 99214; G0463

== ENCOUNTER 2023-08-03 19:14 | Emergency (ER) | payer MEDICAID, SELFPAY ==
[2023-08-03 19:20] VITALS: BP 121/79; PULSE 86; RESP 18; TEMP 36.7; O2SAT 98; BMI 29.5
--- NOTE | 2023-08-03 19:28 | EXP.UTC ---
Discharge Plan Disposition Patient Disposition: Home, Self-Care Condition: Good Prescriptions Prescriptions: New amoxicillin [amoxicillin] 875 mg tablet 875 mg PO Q12H Qty: 20 0RF methylprednisolone 4 mg Tablets,Dose Pack 4 mg PO DIRECTED Qty: 21 0RF promethazine-DM 6.25-15 mg/5 mL Syrup 5 ml PO Q6H PRN (Reason: Cough) Qty: 240 0RF guaifenesin [Mucinex] 600 mg tablet extended release 12hr 600 - 1,200 mg PO BIDP PRN (Reason: Congestion) Qty: 30 0RF No Action etonogestrel-ethinyl estradiol [EluRyng] 0.12-0.015 mg/24 hr ring See Rx Instructions .ROUTE .COMPLEX Qty: 3 2RF Dose Instruction: INSERT 1 VAGINALLY ONCE EVERY MONTH. LEAVE IN PLACE FOR 3 WEEKS OF A 4 WEEK CYCLE Rx Instructions: INSERT 1 VAGINALLY ONCE EVERY MONTH. LEAVE IN PLACE FOR 3 WEEKS OF A 4 WEEK CYCLE famotidine 20 mg tablet 20 mg PO BID Patient Comments: TAKE ONE TABLET BY MOUTH TWICE DAILY propranolol 20 mg tablet 20 mg PO BID Patient Comments: TAKE ONE TABLET BY MOUTH TWICE DAILY Referrals Follow up/Referrals: Isabel Palma APRN [Primary Care Provider] - See instructions Activity Restrictions/Add. Instructions Additional Instructions/Restrictions: Drink plenty of fluids. Take tylenol or ibuprofen for pain or fever. Take the medications as directed. Follow up with your regular doctor. GO TO THE ER FOR ANY WORSENING SYMPTOMS Clinical Impressions Clinical Impression: Sinusitis, Acute bronchitis Instructions Patient Instructions: Sinusitis, DI for Sinusitis Discharge ED Provider: Daniel Solorio [facility] General Stated complaint: cough, congestion, sore throat Time Seen by Provider: 08/03/23 19:28 History of Present Illness Provider Complaint: She states that for the past 1 week she has had sinus congestion. She states that her symptoms are worsening. Related Data Home Medications Medication Instructions Recorded Confirmed famotidine 20 mg tablet 20 mg PO BID 06/21/23 08/03/23 propranolol 20 mg tablet 20 mg PO BID . 06/21/23 08/03/23 Previous Rx's Medication Instructions Recorded etonogestrel 0.12 mg-ethinyl See Rx Instructions .Route 07/06/23 estradiol 0.015 mg/24 hr vaginal .COMPLEX #3 ea ring (EluRyng) amoxicillin 875 mg tablet 875 mg PO Q12H #20 tabs 08/03/23 guaifenesin 600 mg tablet, 600 - 1,200 mg PO BIDP PRN 08/03/23 extended release 12 hr (Mucinex) Congestion #30 tabs methylprednisolone 4 mg tablets in 4 mg PO DIRECTED #21 tabs 08/03/23 a dose pack promethazine-DM 6.25 mg-15 mg/5 mL 5 ml PO Q6H PRN Cough #240 mL 08/03/23 oral syrup Allergies Allergy/AdvReac Type Severity Reaction Status Date / Time No Known Allergies Allergy Verified 08/03/23 19:40 [facility] Disclaimer: The information contained in this section may have been updated after the patient was seen, as this information can be updated by other users. Medical History (Updated 08/03/23 @ 19:53 by Daniel Solorio APRN) Anxiety Depression Family history of breast cancer in first degree relative Urinary tract infection Surgical History History of appendectomy History of cholecystectomy Social History Smoking Status: Never smoker second hand exposure: No alcohol intake: never substance use type: denies use current occupational status: other Travel in the last 8 weeks: None housing: house current occupation: [employer] current occupational exposures/hazards: No caffeine: No ROS Obtained: Yes All systems reviewed & no additional complaints except as documented Constitutional Constitutional: Reports poor appetite Eyes Eyes: Reports system reviewed and no additional complaints, except as documented ENT Ears, Nose, Mouth, and Throat: Reports as per HPI Cardiovascular Cardiovascular: Reports system reviewed and no additional c
[2023-08-03 19:41] LABS: UTC Strep Screen (Rapid) Negative (Negative)
[2023-08-03 19:59] VITALS: BP 121/79; PULSE 86; RESP 18; TEMP 36.7; O2SAT 98
== END 2023-08-03 19:59 | disposition home or self-care (01) ==
PROVIDERS: Emergency Provider Nurse Practitioner Family; PCP Nurse Practitioner Family
DX: J01.90 Acute sinusitis, unspecified (principal); J20.9 Acute bronchitis, unspecified; R07.0 Pain in throat; R05.9 Cough, unspecified; R09.81 Nasal congestion
CPT/HCPCS: 87880; 99212; 99214; G0463

== ENCOUNTER 2024-01-02 08:22 | Outpatient (CLI) | payer MEDICAID, SELFPAY ==
[2024-01-02 10:16] LABS: HCG,Quantitative 1840 mIU/ml (0-5.42)
[2024-01-03 08:32] LABS: Progesterone 1.5 ng/mL (.)
== END 2024-01-02 23:59 | disposition home or self-care (01) ==
PROVIDERS: PCP Nurse Practitioner Family; Visit Provider Obstetrics & Gynecology
DX: Z32.00 Encounter for pregnancy test, result unknown (principal); B96.29 Other Escherichia coli [E. coli] as the cause of diseases classified elsewhere
CPT/HCPCS: 84144; 84702; 87086; 87088; 87186

== ENCOUNTER 2024-01-04 08:43 | Outpatient (CLI) | payer MEDICAID, SELFPAY ==
[2024-01-04 10:12] LABS: HCG,Quantitative 1957 mIU/ml (0-5.42)
== END 2024-01-04 23:59 | disposition home or self-care (01) ==
PROVIDERS: PCP Nurse Practitioner Family; Visit Provider Obstetrics & Gynecology
DX: O26.891 Other specified pregnancy related conditions, first trimester (principal); Z3A.09 9 weeks gestation of pregnancy
CPT/HCPCS: 36415; 84702

== ENCOUNTER 2024-01-06 07:31 | Outpatient (CLI) | payer MEDICAID, SELFPAY ==
--- NOTE | 2024-01-06 07:32 | US_ITS ---
PROCEDURE: US OB <= 14 WEEKS FETUS CLINICAL INDICATION: CONFIRM VIABILITY COMPARISON: No exams were available for comparison FINDINGS: Transvaginal sonographic images of the pelvis were obtained. From her last menstrual period she is 9weeks 2days. An intrauterine gestational sac is not seen. There is a small amount of blood clot/tissue within the endometrium. A fetus is not seen. Yolk sac is not seen. The right ovary is seen and appears polycystic. The left ovary is seen and appears polycystic. There is no fluid in the cul-de-sac. IMPRESSION: 1. Anteverted uterus normal in shape and size. A gestational sac is not seen. 2. There is a small amount of tissue/blood within the uterine cavity. It measures 1.3 cm by 0.6 cm x 0.8 cm. 3. Both ovaries are seen and appear polycystic. 4. No fluid in the cul-de-sac Dictated by: Drake Parker MD 01/07/2024 08:21 Drake Parker MD in [place] 01/07/2024 08:21
== END 2024-01-06 23:59 | disposition home or self-care (01) ==
LOC: RAD 07:32
PROVIDERS: PCP Nurse Practitioner Family; Visit Provider Obstetrics & Gynecology
DX: O20.9 Hemorrhage in early pregnancy, unspecified (principal); O36.80X0 Pregnancy with inconclusive fetal viability, not applicable or unspecified
CPT/HCPCS: 76801

== ENCOUNTER 2024-01-10 09:02 | Outpatient (CLI) | payer MEDICAID, SELFPAY ==
[2024-01-10 09:20] LABS: Basophils # 0.1 K/mm3 (0-0.2); Basophils % 1.3 % (0.1-2.0); Eosinophils # 0.1 K/mm3 (0.0-0.4); Eosinophils % 1.2 % (0.1-12.0); Hematocrit 43.9 % (37.0-47.0); Hemoglobin 14.9 g/dL (12.2-16.2); Lymphocytes % 31.3 % (10-50); Mean Corpuscular HGB Conc 33.9 g/dL (31.8-35.4); Mean Corpuscular Hemoglobin 28.3 pg (27.0-31.2); Mean Corpuscular Volume 83.5 fl (81-99); Mean Platelet Volume 8.4 fl (7.4-10.4); Monocytes # 0.4 K/mm3 (0.1-1.0); Monocytes % 5.5 % (1.7-9.3); Neutrophils # 3.9 K/mm3 (1.8-7.8); Neutrophils % 60.6 % (37.0-80.0); Platelet Count 219 K/mm3 (142-424); Red Blood Count 5.26 M/mm3 (4.20-5.40); Red Cell Distribution Width 14.7 % (11.5-17.5); White Blood Count 6.4 K/mm3 (4.8-10.8)
[2024-01-10 10:47] LABS: HCG,Quantitative 1837 mIU/ml (0-5.42)
[2024-01-11 08:28] LABS: HCV Ab Non Reactive (Non Reactive); HIV Screen 4th Generation wRfx Non Reactive (Non Reactive); Hepatitis B Surface Antigen Negative (Negative)
[2024-01-11 09:13] LABS: Rubella Antibodies, IgG 2.42 index (Immune >0.99)
[2024-01-11 12:25] LABS: Rapid Plasma Reagin Ab Titer Non Reactive titer (NonRea<1:1)
== END 2024-01-10 23:59 | disposition home or self-care (01) ==
PROVIDERS: PCP Nurse Practitioner Family; Visit Provider Obstetrics & Gynecology
DX: O26.891 Other specified pregnancy related conditions, first trimester (principal); Z3A.10 10 weeks gestation of pregnancy
CPT/HCPCS: 36415; 84702; 85025; 86593; 86703; 86762; 86850; 87340; G0432

== ENCOUNTER 2024-01-12 14:21 | Outpatient (CLI) | payer MEDICAID, SELFPAY ==
[2024-01-12 18:15] LABS: HCG,Quantitative 1592 mIU/ml (0-5.42)
[2024-01-14 08:17] LABS: Progesterone 7.1 ng/mL (.)
== END 2024-01-12 23:59 | disposition home or self-care (01) ==
LOC: LAB 14:21
PROVIDERS: PCP Nurse Practitioner Family; Visit Provider Obstetrics & Gynecology
DX: O20.9 Hemorrhage in early pregnancy, unspecified (principal)
CPT/HCPCS: 36415; 84144; 84702

== ENCOUNTER 2024-01-17 09:46 | Outpatient (CLI) | payer MEDICAID, SELFPAY ==
[2024-01-17 12:13] LABS: HCG,Quantitative 988 mIU/ml (0-5.42)
== END 2024-01-17 23:59 | disposition home or self-care (01) ==
LOC: LAB 09:47
PROVIDERS: PCP Nurse Practitioner Family; Visit Provider Obstetrics & Gynecology
DX: O20.9 Hemorrhage in early pregnancy, unspecified (principal); O20.0 Threatened abortion
CPT/HCPCS: 36415; 84702

== ENCOUNTER 2024-01-26 10:37 | Outpatient (CLI) | payer MEDICAID, SELFPAY ==
--- NOTE | 2024-01-26 10:38 | US_ITS ---
PROCEDURE: US TRANSVAGINAL CLINICAL INDICATION: f/u on miscarriage, check if all tissue has passed COMPARISON: US US OB <= 14 WEEKS FETUS from 01/06/2024 FINDINGS: Transvaginal sonographic images of the pelvis were obtained. UTERUS: 7.9 cm x 5.3cmx 4.3m anteverted with a combined endometrial thickness of 10.9mm. LEFT OVARY: 3.4cmx1.9 cmx1.6cm with a volume of 5.2ml. Adjacent to the left ovary is a thick-walled cystic structure measuring 1.4 cm x 1.7 cm x 1.3 cm. There is no ring of fire. RIGHT OVARY: 3.1cmx 1.8 cmx2.1cm with a volume of 6.1ml. Right ovary appears polycystic. Both ovaries are seen and appear normal. Doppler flow to both ovaries are seen. There is no fluid in the cul-de-sac. IMPRESSION: 1. Anteverted uterus normal in shape and size. The endometrium appears normal. There are no retained products. 2. Both ovaries are seen and appear normal. The right ovary has a polycystic appearance. 3. Adjacent to the left ovary is a thick-walled cystic structure measuring 1.7 cm. No ring of fire. Suggest follow-up beta HCG until 0. 4. No fluid in the cul-de-sac. Dictated by: Drake Parker MD 01/27/2024 08:11 Drake Parker MD in OV 01/27/2024 08:11
== END 2024-01-26 23:59 | disposition home or self-care (01) ==
LOC: RAD 10:38
PROVIDERS: PCP Nurse Practitioner Family; Visit Provider Obstetrics & Gynecology
DX: O20.0 Threatened abortion (principal)
CPT/HCPCS: 76830

== ENCOUNTER 2024-02-13 14:54 | Outpatient (CLI) | payer MEDICAID, SELFPAY ==
[2024-02-13 17:32] LABS: HCG,Quantitative 35 mIU/ml (0-5.42)
== END 2024-02-13 23:59 | disposition home or self-care (01) ==
LOC: LAB 14:54
PROVIDERS: PCP Nurse Practitioner Family; Visit Provider Obstetrics & Gynecology
DX: O03.9 Complete or unspecified spontaneous abortion without complication (principal)
CPT/HCPCS: 36415; 84702

== ENCOUNTER 2024-03-08 12:32 | Outpatient (CLI) | payer MEDICAID, SELFPAY ==
[2024-03-08 12:40] LABS: Microscopic, Urine URINE MICROSCOPIC (MICROSCOPIC)
[2024-03-08 12:57] LABS: Basophils # 0.1 K/mm3 (0-0.2); Basophils % 1.6 % (0.1-2.0); Eosinophils # 0.1 K/mm3 (0.0-0.4); Eosinophils % 1.9 % (0.1-12.0); Hematocrit 42.4 % (37.0-47.0); Hemoglobin 14.3 g/dL (12.2-16.2); Lymphocytes # 1.1 K/mm3 (0.7-4.5); Mean Corpuscular HGB Conc 33.8 g/dL (31.8-35.4); Mean Corpuscular Hemoglobin 27.7 pg (27.0-31.2); Mean Corpuscular Volume 81.8 fl (81-99); Monocytes # 0.3 K/mm3 (0.1-1.0); Monocytes % 5.9 % (1.7-9.3); Neutrophils # 2.8 K/mm3 (1.8-7.8); Neutrophils % 64.5 % (37.0-80.0); Platelet Count 252 K/mm3 (142-424); Red Blood Count 5.18 M/mm3 (4.20-5.40); Red Cell Distribution Width 14.1 % (11.5-17.5); White Blood Count 4.3 K/mm3 (4.8-10.8)
[2024-03-08 13:26] LABS: Chloride 109 mmol/L (98-107); Sodium 141 mmol/L (136-145)
[2024-03-08 13:27] LABS: Potassium 4.4 mmoL/L (3.5-5.1)
[2024-03-08 13:29] LABS: Alanine Aminotransferase 112 U/L (12-78); Albumin Level 4.1 g/dl (3.5-5.0); Albumin/Globulin Ratio 1.5 (1.1-1.8); Alkaline Phosphatase 89 U/L (38-126); Anion Gap 11.4 mEq/L (5-15); Aspartate Amino Transferase 58 U/L (14-36); Bilirubin,Total 0.6 mg/dl (0.2-1.3); Blood Urea Nitrogen 12 mg/dl (7-17); Calcium 9.7 mg/dl (8.4-10.2); Carbon Dioxide 25 mmol/L (22.0-30.0); Estimated Glomerular Filt Rate 100 ml/min (>60); GFR (African American) 121 ML/MIN (>60); Globulin 2.8 g/dL (1.3-3.2); Glucose 97 mg/dl (74-100); Total Protein,Serum 6.9 g/dl (6.3-8.2)
[2024-03-08 14:22] LABS: Appearance,Urine CLEAR (Clear); Blood, Urine TRACE-I (Negative); Color,Urine YELLOW (Yellow); Glucose,Urine (UA) Negative (Negative); Ketones,Urine Negative (Negative); Leukocyte Esterase,Urine TRACE (Negative); Nitrate,Urine Negative (Negative); Protein,Urine Negative (Negative); Specific Gravity, Urine >= 1.030 (1.005-1.030); Urobilinogen,Urine 0.2 EU/dl (0.2)
[2024-03-08 15:09] LABS: Bilirubin,Urine Negative (Negative)
[2024-03-08 15:10] LABS: Amorphous Sediment,Urine 4+ /lpf; Bacteria,Urine 4+ /lpf; RBC,Urine Occasional #/hpf (0-3)
[2024-03-08 15:35] LABS: Hemoglobin A1C 5.2 % (4.0-6.0)
[2024-03-08 19:02] LABS: Ferritin 80.8 ng/ml (6.24-137); Thyroid Stimulating Hormone 0.95 uIU/mL (0.465-4.68)
[2024-03-08 19:03] LABS: HCG,Quantitative < 2 mIU/ml (0-5.42)
[2024-03-08 20:08] LABS: Vitamin B12 296 pg/mL (239-931)
[2024-03-08 20:11] LABS: Folate 8.67 ng/mL
== END 2024-03-08 23:59 | disposition home or self-care (01) ==
LOC: LAB 12:33
PROVIDERS: PCP Nurse Practitioner Family; Visit Provider Nurse Practitioner Family
DX: Z87.448 Personal history of other diseases of urinary system (principal); N39.0 Urinary tract infection, site not specified; R10.30 Lower abdominal pain, unspecified; R53.81 Other malaise
CPT/HCPCS: 36415; 80050; 80053; 81001; 82607; 82728; 82746; 83036; 84443; 84702; 85025; 87086

== ENCOUNTER 2024-03-21 14:27 | Outpatient (CLI) | payer MEDICAID, SELFPAY ==
--- NOTE | 2024-03-21 14:30 | US_ITS ---
FINAL REPORT TECHNIQUE: Ultrasound images of the kidneys and bladder were obtained. CLINICAL HISTORY: RECURRENT UTI FINDINGS: The right kidney measures 11.7 cm in length. It is normal in echogenicity. There is no hydronephrosis. There is probable 5 mm nonobstructing stone. There is a 1.8 cm right renal cyst. The left kidney measures 11.9 cm in length. It is normal in echogenicity. There is no hydronephrosis. Incidental note is made of fatty infiltration of the liver. There is splenomegaly. The spleen measures 14.4 cm. IMPRESSION: Nonobstructing right renal stone. Fatty liver. Splenomegaly. Reviewed, Interpreted and Dictated by Armond Aldrich III, MD Transcribed by Triny Sun Authenticated and [facility]
== END 2024-03-21 23:59 | disposition home or self-care (01) ==
LOC: RAD 14:28
PROVIDERS: PCP Nurse Practitioner Family; Visit Provider Nurse Practitioner Family
DX: N39.0 Urinary tract infection, site not specified (principal); Z87.448 Personal history of other diseases of urinary system
CPT/HCPCS: 76770

== ENCOUNTER 2024-04-27 09:23 | Day surgery (SDC) | payer MEDICAID, SELFPAY ==
[2024-04-27 09:49] VITALS: BP 127/73; PULSE 77; RESP 18; TEMP 36.8; O2SAT 100; BMI 29.8
[2024-04-27] MEDS: 0.9 % SODIUM CHLORIDE 1000ML 1,000 ML 25 ML IV (10:15)
[2024-04-27 10:20] VITALS: BP 116/86; PULSE 67; RESP 18; TEMP 36.8; O2SAT 97
--- NOTE | 2024-04-27 10:20 | P.PCN_ITS ---
[facility] Procedure Note Date: 04/27/24 Time: 10:20 Procedure Note:: Chart review: The patient is troubled with recurrent urinary tract infections. Preop diagnosis: UTI Postop diagnosis: UTI; urethritis Operative note: The patient was brought to the cystoscopy suite she was prepped and draped using a sterile technique. She underwent flexible cystoscopy. She has mild to moderate urethritis. The bladder itself is [place] pink in color throughout. There is no evidence of bladder stone tumor hemorrhage or infection. The ureteral orifice ease are normal. Her bladder capacity is around 250 cc.
[2024-04-27 11:48] LABS: Microscopic,Cath URINE MICROSCOPIC (MICROSCOPIC)
[2024-04-27 11:52] LABS: Appearance,Urine/Cath CLEAR (Clear); Bilirubin,Cath Negative (Negative); Blood, Urine/Cath Negative (Negative); Color,Urine/Cath YELLOW (Yellow); Glucose,Urine/Cath (UA) Negative (Negative); Ketones,Urine/Cath Negative (Negative); Leukocyte Esterase,Cath Negative (Negative); Nitrate,Cath Negative (Negative); Protein,Urine/Cath Negative (Negative); Specific Gravity, Urine/Cath 1.025 (1.005-1.030); Urobilinogen,Cath 0.2 EU/dl (0.2)
[2024-04-27 12:16] LABS: Bacteria,Urine/Cath TRACE /lpf; Squamous Epithelial Ur./Cath Occasional #/hpf (0-5); WBC,Urine/Cath Occasional #/hpf (0-3)
== END 2024-04-27 10:32 | disposition home or self-care (01) ==
PROVIDERS: PCP Nurse Practitioner Family; Visit Provider Urology
PROC: 0TJB8ZZ Inspection of Bladder, Via Natural or Artificial Opening Endoscopic (ICD-10-PCS; CPT 52000; principal; 2024-04-27 11:45)
DX: N34.2 Other urethritis (principal)
CPT/HCPCS: 52000; 81001; J7030

== ENCOUNTER 2024-06-11 09:32 | Outpatient (CLI) | payer MEDICAID, SELFPAY ==
[2024-06-11 10:21] LABS: Basophils # 0.1 K/mm3 (0-0.2); Basophils % 1.2 % (0.1-2.0); Eosinophils # 0.1 K/mm3 (0.0-0.4); Hematocrit 42.8 % (37.0-47.0); Hemoglobin 15.1 g/dL (12.2-16.2); Lymphocytes # 1.4 K/mm3 (0.7-4.5); Lymphocytes % 27.8 % (10-50); Mean Corpuscular HGB Conc 35.4 g/dL (31.8-35.4); Mean Corpuscular Hemoglobin 28.1 pg (27.0-31.2); Mean Corpuscular Volume 79.5 fl (81-99); Mean Platelet Volume 7.8 fl (7.4-10.4); Monocytes # 0.3 K/mm3 (0.1-1.0); Monocytes % 6.3 % (1.7-9.3); Neutrophils # 3.2 K/mm3 (1.8-7.8); Neutrophils % 63.7 % (37.0-80.0); Platelet Count 183 K/mm3 (142-424); Red Blood Count 5.39 M/mm3 (4.20-5.40); Red Cell Distribution Width 14.2 % (11.5-17.5)
[2024-06-11 10:45] LABS: Alanine Aminotransferase 50 U/L (12-78); Albumin Level 4.5 g/dl (3.5-5.0); Albumin/Globulin Ratio 1.6 (1.1-1.8); Alkaline Phosphatase 68 U/L (38-126); Anion Gap 14.8 mEq/L (5-15); Aspartate Amino Transferase 37 U/L (14-36); Bilirubin,Total 0.7 mg/dl (0.2-1.3); Blood Urea Nitrogen 11 mg/dl (7-17); Calcium 9.2 mg/dl (8.4-10.2); Carbon Dioxide 19 mmol/L (22.0-30.0); Chloride 107 mmol/L (98-107); Chol/HDL Ratio 4.8 (1-3.5); Cholesterol 153 mg/dl (140-200); Estimated Glomerular Filt Rate 119 ml/min (>60); GFR (African American) 144 ML/MIN (>60); Globulin 2.9 g/dL (1.3-3.2); Glucose 108 mg/dl (74-100); HDL Cholesterol 32 mg/dl (40-60); Potassium 3.8 mmoL/L (3.5-5.1); Sodium 137 mmol/L (136-145); Total Protein,Serum 7.4 g/dl (6.3-8.2); Triglycerides 210 mg/dl (30-150); VLDL Cholesterol 42 mg/dL (0-40)
[2024-06-11 10:46] LABS: Direct LDL Cholesterol 84.46 mg/dL (100-129)
[2024-06-11 11:06] LABS: Thyroid Stimulating Hormone 1.22 uIU/mL (0.465-4.68)
[2024-06-11 11:07] LABS: HCG,Quantitative < 2 mIU/ml (0-5.42)
[2024-06-11 11:38] LABS: Hemoglobin A1C 4.9 % (4.0-6.0)
[2024-06-12 11:19] LABS: Insulin Level Total 22.6 uIU/mL (2.6-24.9); LH 3.3 mIU/mL (.)
[2024-06-14 23:08] LABS: Anti Mullerian Hormone (AMH) 3.98 ng/mL (.)
[2024-06-24 16:09] LABS: Testosterone, Total, LC/MS 12 ng/dL (.)
== END 2024-06-11 23:59 | disposition home or self-care (01) ==
LOC: LAB 09:34
PROVIDERS: PCP Nurse Practitioner Family; Visit Provider Obstetrics & Gynecology
DX: E28.2 Polycystic ovarian syndrome (principal); N80.9 Endometriosis, unspecified
CPT/HCPCS: 36415; 80050; 80053; 80061; 82397; 82670; 83001; 83002; 83036; 83525; 84403; 84443; 84702; 85025

== ENCOUNTER 2024-07-06 08:53 | Outpatient (CLI) | payer MEDICAID, SELFPAY ==
[2024-07-06 09:20] LABS: Basophils # 0.1 K/mm3 (0-0.2); Basophils % 1.2 % (0.1-2.0); Eosinophils # 0.1 K/mm3 (0.0-0.4); Eosinophils % 1.2 % (0.1-12.0); Hematocrit 43.9 % (37.0-47.0); Hemoglobin 15.3 g/dL (12.2-16.2); Lymphocytes # 1.6 K/mm3 (0.7-4.5); Lymphocytes % 31.6 % (10-50); Mean Corpuscular HGB Conc 34.9 g/dL (31.8-35.4); Mean Corpuscular Hemoglobin 28.4 pg (27.0-31.2); Mean Corpuscular Volume 81.3 fl (81-99); Monocytes # 0.4 K/mm3 (0.1-1.0); Monocytes % 7.3 % (1.7-9.3); Neutrophils # 2.9 K/mm3 (1.8-7.8); Neutrophils % 58.7 % (37.0-80.0); Platelet Count 190 K/mm3 (142-424); Red Blood Count 5.39 M/mm3 (4.20-5.40); Red Cell Distribution Width 14.2 % (11.5-17.5); White Blood Count 4.9 K/mm3 (4.8-10.8)
[2024-07-06 10:16] LABS: Chloride 107 mmol/L (98-107)
[2024-07-06 10:17] LABS: Albumin Level 4.6 g/dl (3.5-5.0); Sodium 141 mmol/L (136-145)
[2024-07-06 10:19] LABS: Blood Urea Nitrogen 10 mg/dl (7-17); Estimated Glomerular Filt Rate 119 ml/min (>60); GFR (African American) 144 ML/MIN (>60)
[2024-07-06 10:20] LABS: Alanine Aminotransferase 34 U/L (12-78); Albumin/Globulin Ratio 1.9 (1.1-1.8); Alkaline Phosphatase 67 U/L (38-126); Aspartate Amino Transferase 27 U/L (14-36); Bilirubin,Total 0.7 mg/dl (0.2-1.3); Calcium 9.9 mg/dl (8.4-10.2); Carbon Dioxide 26 mmol/L (22.0-30.0); Cholesterol 172 mg/dl (140-200); Globulin 2.4 g/dL (1.3-3.2); Glucose 97 mg/dl (74-100); Triglycerides 164 mg/dl (30-150); VLDL Cholesterol 33 mg/dL (0-40)
[2024-07-06 10:21] LABS: Chol/HDL Ratio 5.2 (1-3.5); HDL Cholesterol 33 mg/dl (40-60)
[2024-07-06 10:32] LABS: Direct LDL Cholesterol 106.74 mg/dL (100-129)
== END 2024-07-06 23:59 | disposition home or self-care (01) ==
LOC: LAB 08:54
PROVIDERS: PCP Nurse Practitioner Family; Visit Provider Obstetrics & Gynecology
DX: R53.83 Other fatigue (principal)
CPT/HCPCS: 80053; 80061; 85025

== ENCOUNTER 2024-07-25 14:54 | Emergency (ER) | payer MEDICAID, SELFPAY ==
[2024-07-25 15:30] VITALS: BP 124/83; PULSE 85; RESP 18; TEMP 36.9; O2SAT 96; BMI 29.6
[2024-07-25 15:49] LABS: UTC Strep Screen (Rapid) Negative (Negative)
--- NOTE | 2024-07-25 15:54 | EXP.UTC ---
Discharge Plan Disposition Patient Disposition: Home, Self-Care Condition: Good Prescriptions Prescriptions: New amoxicillin 875 mg tablet 875 mg PO Q12H Qty: 20 0RF methylprednisolone [Medrol (Duy)] 4 mg tablets,dose pack See Rx Instructions .Route .COMPLEX 6 Days Qty: 21 0RF Rx Instructions: taper pack; Referrals Follow up/Referrals: Isabel Palma APRN [Primary Care Provider] - See instructions Activity Restrictions/Add. Instructions Additional Instructions/Restrictions: *Monitor Temp, Over the counter Motrin or Tylenol as directed/as needed Tylenol every 4 hours and Motrin every 6 hours (as long as your family doctor has told you that you can take it) for fever or pain. and straight to ER if unable to lower temp less than 101.0 after medication given *Warm salt water gargles may help to soothe the throat *Throat Lozenges? *Warm fluids like tea with honey may help to soothe the throat? *Sleep elevated *Humidifier/Vaporizer Your throat swab was sent for culture. Those results are typically sent to your primary care. Be sure to follow up in 2-3 days with your family doctor/primary care physician if no improvement so they can review those result and treat if necessary. If you don?t have a primary care doctor, I recommend you get one but in the mean time, you will have to return to a walk in clinic Follow up IMMEDIATELY for new or worsening symptoms or no Noticeable improvement over the next 48-72 hours. 911 for difficulty breathing or swallowing Clinical Impressions Clinical Impression: Pharyngitis Instructions Patient Instructions: DI for Sinusitis, Sore Throat Print Language Print Language: Singaporean Discharge ED Provider: Adenike Kiser [facility] General Stated complaint: SORE THROAT Mode of Arrival: Ambulatory Source of Information: Patient Limitations: No Limitations Time Seen by Provider: 07/25/24 15:54 Description of Symptoms (Recalled from Triage Doc. by RN): PATIENT C/O SORE THROAT, CONGESTION, RUNNY NOSE, AND EXCESS MUCOUS AT NIGHT X 5 DAYS HEENT Symptoms (Recalled from RN notes): Yes Resp Symptoms (Recalled from RN notes): No Skin Symptoms (Recalled from RN notes): No MS Symptoms (Recalled from RN notes): No Functional Status (Recalled from RN notes): WNL History of Present Illness Provider Complaint: Patient states that she has been having sore throat, nasal congestion and drainage that is worse at night, cough and runny nose States today she was still having symptoms so she came in to get checked Related Data Previous Rx's ?Medication ?Instructions ?Recorded amoxicillin 875 mg tablet 875 mg PO Q12H #20 tabs 07/25/24 methylprednisolone 4 mg tablets in See Rx Instructions .Route 07/25/24 a dose pack (Medrol (Duy)) .COMPLEX 6 days #21 tabs Allergies Allergy/AdvReac Type Severity Reaction Status Date / Time No Known Allergies Allergy Verified 06/19/24 09:01 Worker's Comp Is this a Worker's Comp case?: No [facility] Disclaimer: The information contained in this section may have been updated after the patient was seen, as this information can be updated by other users. Medical History (Updated 07/25/24 @ 16:11 by Adenike Kiser APRN) Furuncle Attempting to conceive Migraine Family history of breast cancer in first degree relative Depression Anxiety Surgical History (Updated 06/19/24 @ 09:08 by HALEIGH Pimentel) History of wisdom tooth extraction History of cholecystectomy History of appendectomy Family History Mother Cancer breast Other Hypertension Kevin disease Social History Smoking Status: Current every day smoker tobacco type: e-cigarettes second hand exposure: No alcohol intake: current substance use type: denies use current occupational status: unemployed Travel in the last 8 weeks: None housing: house current occupation: [email or web address] current occupational exposures/hazards: No caffeine: Yes ROS Obtained: Yes All systems reviewed & no additional complaints except as documented and Yes Systems reviewed as appropriate & no additional complaints except as documented Constitutional Constitutional: Reports system reviewed and no additional complaints, except as documented and Reports as per HPI ENT Ears, Nose, Mouth, and Throat: Reports system reviewed and no additional complaints, except as documented, Reports as per HPI, Reports nasal congestion, Reports sinus pressure and Reports sore throat Cardiovascular Cardiovascular: Reports system reviewed and no additional complaints, except as documented and Reports as per HPI Respiratory Respiratory: Reports system reviewed and no additional complaints, except as documented, Reports as per HPI and Reports cough Gastrointestinal Gastrointestingal: Reports system reviewed and no additional complaints, except as documented and as per HPI Physical Exam General General appearance: alert and in no apparent distress ENT ENT exam: Present mucous membranes moist Expanded ENT Exam TM/Canal exam: Right TM: erythema and bulging Nose exam: Present sinus tenderness Throat exam: Present other (Pharyngeal erythema noted with PND) Respiratory Respiratory exam: Present normal lung sounds bilaterally; Absent respiratory distress or wheezes Cardiovascular Cardiovascular exam: Present regular rate, normal rhythm and normal heart sounds Neurological Exam Neurological exam: Present alert, oriented X3 and normal gait Medical Decision Making Medical Records Screening: Per USPSTF and CDC recommendations, given the prevalence of disease in our region, it is our hospital?s policy to screen for HIV and viral Hepatitis for all patients aged 18 and over and those with ongoing risk factors. Angel Inquiry Pt receiving controlled substance: No Angle was queried for this patient: No Vital Signs: 07/25/24 15:30 Temperature 98.5 F Temperature Source Oral Pulse Rate [Left Brachial] 85 Respiratory Rate 18 Blood Pressure [Left Arm] 124/83 Blood Pressure Mean [Left Arm] 96 Blood Pressure Source [Left Arm] Automatic Cuff Blood Pressure Position [Left Arm] Sitting 02 Sat by Pulse Oximetry 96 Oxygen Delivery Method Room Air Lab Data Lab results reviewed: Yes I reviewed the patient's lab results. Lab Results 07/25/24 15:28: Strep Scn Rapid Clinic Negative Orders (Tests/Meds): ORDERS Category Date Time Status Strep Screen Confirmation Stat Micro 07/25/24 15:28 Received
[2024-07-25 16:11] VITALS: BP 124/83; PULSE 85; RESP 18; TEMP 36.9; O2SAT 96
== END 2024-07-25 16:16 | disposition home or self-care (01) ==
PROVIDERS: Emergency Provider Nurse Practitioner; PCP Nurse Practitioner Family
DX: J02.9 Acute pharyngitis, unspecified (principal); R09.81 Nasal congestion; R09.89 Other specified symptoms and signs involving the circulatory and respiratory systems; R05.9 Cough, unspecified; Z72.0 Tobacco use
CPT/HCPCS: 87880; 99212; G0381

== ENCOUNTER 2024-08-22 12:04 | Outpatient (CLI) | payer MEDICAID, SELFPAY ==
[2024-08-22 13:53] LABS: HCG,Quantitative 291 mIU/ml (0-5.42)
[2024-08-23 08:14] LABS: Progesterone 10.5 ng/mL (.)
== END 2024-08-22 23:59 | disposition home or self-care (01) ==
PROVIDERS: PCP Nurse Practitioner Family; Visit Provider Obstetrics & Gynecology
DX: Z32.01 Encounter for pregnancy test, result positive (principal)
CPT/HCPCS: 36415; 84144; 84702

== ENCOUNTER 2024-08-24 13:13 | Outpatient (CLI) | payer MEDICAID, SELFPAY ==
[2024-08-24 14:26] LABS: HCG,Quantitative 807 mIU/ml (0-5.42)
== END 2024-08-24 23:59 | disposition home or self-care (01) ==
LOC: LAB 13:15
PROVIDERS: PCP Nurse Practitioner Family; Visit Provider Obstetrics & Gynecology
DX: Z34.90 Encounter for supervision of normal pregnancy, unspecified, unspecified trimester (principal)
CPT/HCPCS: 36415; 84702

== ENCOUNTER 2024-09-21 09:47 | Outpatient (CLI) | payer MEDICAID, SELFPAY ==
[2024-09-21 10:45] LABS: Basophils % 0.3 % (0.1-2.0); Eosinophils # 0.1 K/mm3 (0.0-0.4); Eosinophils % 0.6 % (0.1-12.0); Hematocrit 41.4 % (37.0-47.0); Hemoglobin 13.9 g/dL (12.2-16.2); Lymphocytes # 1.6 K/mm3 (0.7-4.5); Lymphocytes % 18.1 % (10-50); Mean Corpuscular HGB Conc 33.6 g/dL (31.8-35.4); Mean Corpuscular Hemoglobin 27.8 pg (27.0-31.2); Mean Corpuscular Volume 82.8 fl (81-99); Mean Platelet Volume 10.5 fl (7.4-10.4); Monocytes # 0.6 K/mm3 (0.1-1.0); Monocytes % 7.4 % (1.7-9.3); Neutrophils # 6.3 K/mm3 (1.8-7.8); Neutrophils % 72.8 % (37.0-80.0); Platelet Count 197 K/mm3 (142-424); Red Cell Distribution Width 13.2 % (11.5-17.5); White Blood Count 8.7 K/mm3 (4.8-10.8)
[2024-09-21 11:50] LABS: HIV Combo NEGATIVE (Negative)
[2024-09-21 12:00] LABS: Hepatitis C Ab Qual. W/ RFX NEGATIVE (Negative)
[2024-09-22 06:35] LABS: Hepatitis B Surface Antigen Negative (Negative)
[2024-09-22 06:51] LABS: RPR W/RFX Titers Nonreactive (Nonreactive)
[2024-09-22 08:59] LABS: Rubella Antibodies, IgG 2.73 index (Immune >0.99)
== END 2024-09-21 23:59 | disposition home or self-care (01) ==
LOC: LAB 09:48
PROVIDERS: PCP Nurse Practitioner Family; Visit Provider Obstetrics & Gynecology
DX: Z34.91 Encounter for supervision of normal pregnancy, unspecified, first trimester (principal); Z3A.09 9 weeks gestation of pregnancy; Z87.59 Personal history of other complications of pregnancy, childbirth and the puerperium; F17.210 Nicotine dependence, cigarettes, uncomplicated
CPT/HCPCS: 36415; 85025; 86592; 86762; 86803; 86850; 87086; 87340; 87389

== ENCOUNTER 2024-12-07 13:33 | Outpatient (CLI) | payer MEDICAID, SELFPAY ==
--- NOTE | 2024-12-07 14:00 | US_ITS ---
PROCEDURE: US OB /MATERNAL DETAIL CLINICAL INDICATION: Schedule in 4 weeks anatomy scan COMPARISON: US US OB <= 14 WEEKS FETUS from 01/06/2024 US US TRANSVAGINAL from 01/26/2024 FINDINGS: Transabdominal sonographic images of the pelvis were obtained. From her established due date she is 20 weeks 3 days. Single viable intrauterine gestation. Breech position. Placenta: Anteriorplacenta grade 1. There is an average amount of fluid. The cervix appears satisfactory. Closed and measuring 4.61 cm in length. Complete survey performed and was unremarkable on the submitted images as in PACS. No discrete anomalies identified on survey imaging by technologist. Active fetus. Three-vessel cord with satisfactory umbilical cord insertion. 4- chamber heart noted. Situs, aortic arch, LVOT, RVOT, three-vessel view appear normal. Survey of brain & ventricles Unremarkable. Cerebellum, thalamus, choroid plexus, cisterna magna appear normal. Face and neck survey unremarkable. Profile, nasion, lips and nose appeared normal. Diaphragm and chest views unremarkable. Abdomen: Both kidneys noted and unremarkable. Stomach and bladder noted and satisfactory. Spine: Survey of the spine satisfactory with no anomalies identified nor imaged. Cervical, thoracic, lower spine appear normal. Both arms and legs noted. Amniotic Fluid: Adequate. MVP 2.69 cm Measurements: Average ultrasound age 19weeks 5days. Estimated due date by ultrasound age 0904/28/2025. Estimated weight 307g BPD = 19weeks 4days HC = 19weeks 3days AC = 20weeks 1day FL = 19weeks 3days Growth Percentile= 13 Heart Rate = 149bpm Cerebellum = 18weeks 5days Humerus = 19weeks 5days HC/AC is 1.12 FL/BPD is 0.68 FL/AC is 0.21 IMPRESSION: 1. Viable fetus in the breech presentation with anterior placenta grade 1. 2. Fluid is within normal limits with an MVP 2.69 cm. 3. Anatomical scan appears normal. 4. biometry is consistent with the dates. Dictated by: Drake Parker MD 12/07/2024 20:34 Drake Parker MD in [place] 12/07/2024 20:34
== END 2024-12-07 23:59 | disposition home or self-care (01) ==
LOC: RAD 13:34
PROVIDERS: PCP Obstetrics & Gynecology; Visit Provider Obstetrics & Gynecology
DX: Z34.82 Encounter for supervision of other normal pregnancy, second trimester (principal); Z3A.20 20 weeks gestation of pregnancy
CPT/HCPCS: 76811

== ENCOUNTER 2025-01-31 14:38 | Outpatient (CLI) | payer MEDICAID, SELFPAY ==
--- OUTSIDE RECORDS SUMMARY | 2025-01-31 14:42 | XMS_ITS | Encounter Summary ---
Author Organization [facility] Address [address] [place] [address] Care Team Providers Care Basketball Assembler Name Role Phone Clemencia Nash HANNA Primary Care Provider [phone] Reason for Referral * Consultation (Routine) - Closed Specialty Diagnoses / Procedures Referred By Lora hernandes Referred To Contact Gastroenterology Diagnoses Family history of endocrine and metabolic disease Isabel Palma APRN [address] [address] Phone: tel: fax: Referral ID Status Reason Start Date Expiration Date V isits Requested Visits Authorized [id number] Closed Specialty Services Required 03/27/2024 09/26/2025 1 1 Encounter Details Date Type Department Care Team (Late st Contact Info) Description 03/27/2024 Community [facility] [address] [place] [address] Isabel Palma APRN [address] [address] Family history of endocrine and metabolic disease (Primary Dx) Social History Tobacco Use Types Packs/Day Years Used Date Smoking Tobacco: Never Passive Smoke Exposure: Never Smokeless Tobacco: Never PHQ-2 Answer Date Recorded Patient Health Questionnaire-2 Score 0 05/09/2023 PHQ-2A Answer Date Recorded Patient Health Questionnaire-2 Score 0 05/09/2023 Comments Unknown Sex and Gender Information Value Date Recorded Sex Assigned at Not on file Legal Sex Female 6:53 PM EDT Gender Identity Not on file Sexual Orientation Not on file documented as of this encounter Plan of Treatment Scheduled Referrals Name Type Priority Associated Diagnoses Order Schedule Ambulatory referral to Gastroenterology Outpatient Referral Routine Family history of endocrine and metabolic disease Ordered: 03/27/2024 documented as of this encounter Visit Diagnoses Diagnosis Family history of endocrine and metabolic disease- Primary Family history of other endocrine and metabolic diseases documented in this encounter Additional Health Concerns Assessment Noted Time A fall risk assessment has been complete d for the patient 05/09/2023 4:42 PM EDT A Body Mass Index follow-up plan has been documented for the patient 05/12/2023 10:04 PM EDT documented as of this encounter Care Teams Basketball Assembler Relationship Specialty Start Date End Date Clemencia Nash APRN [facility] [place] [address] PCP - General 03/10/23 documented as of this encounter
--- OUTSIDE RECORDS SUMMARY | 2025-01-31 14:42 | XMS_ITS | Clinical Summary ---
Author Organization [facility] Address [address] [place] [id number] Phone [email or web address] Care Team Providers Care Electrical Technology Instructor Name Role Phone Provider, No Primary Care Provider Unavailabl e Allergies No known active allergies Medications EluRyng 0.12-0.015 MG/24HR vaginal ring 06/02/2020 Active Active Problems No known active problems Immunizations Immunization Administration Dates Next Due Influenza, (Afluria Fluarix Flulaval Fluzone) quad, PF (CVX-150) 05/07/2020,05/16/2019 Tdap (ADACEL BOOSTRIX) (CVX-115) 01/04/2018 Social History Tobacco Use Types Packs/Day Years Used Date Smoking Tobacco: Former E-Cigarettes Smokeless Tobacco: Never Intimate Partner Violence Answer Date R ecorded Insults You Not on file 11/26/2020 Threatens You Not on file 11/26/2020 Screams at You Not on file 11/26/2020 Physically Hurt Not on file 11/26/2020 Intimate Partner Violence Score Not on file 11/26/2020 Depression Answer Date Recorded PHQ Total Score 0 08/21/2022 Stress Answer Date Recorded Stress in your Life 0 09/26/2020 Dealing with Stress Not on file 09/26/2020 Comments Unknown Sex and Gender Information Value Date Recorded Sex Assigned at Not on file Legal Sex Female 12:16 PM CDT Gender Identity Not on file Sexual Orientation Not on file Last Filed Vital Signs Vital Sign Reading Time Taken Comments Blood Pressure 122/83 05/20/2022 6:04 PM EDT Pulse 93 05/20/2022 6:04 PM EDT Temperature 35.8 C (96.4 F) 05/20/2022 6:04 PM EDT Respiratory Rate 18 05/20/2022 6:04 PM EDT Oxygen Saturation 97% 05/20/2022 6:04 PM EDT Inhaled Oxygen Concentration - - Weight 72.7 kg (160 lb 3.2 oz) 06/16/2021 10:06 PM EDT Height 167 cm (5' 5.75 ) 06/16/2021 10:06 PM EDT Body Mass Index 26.06 06/16/2021 10:06 PM EDT Plan of Treatment Health Maintenance Due Date Last Done Comments Dental Cleaning/Exam 1995 Cervical Cancer Screening 2011 Hepatitis B Immunization (1 of 3 - 19+ 3-dose series) 2014 Covid-19 Immunization ( - season) 2024 Influenza Immunization (Season Ended) 2025 05/07/2020, 05/16/2019 Tetanus Diphtheria and Pertussis Immunization (2 - Td or Tdap) 01/05/2028 01/04/2018 HIB Immunization Aged Out No longer e ligible based on patient's age to complete this topic HPV Immunization Aged Out No longer e ligible based on patient's age to complete this topic Hepatitis A Immunization Aged Out No longer eligible based on patient's age to complete this topic Pneumococcal: Ped (0 to 5 Yrs) and At-Risk Member (6 to 64 Yrs) Aged Out No longer eligible b ased on patient's age to complete this topic Polio Immunization Aged Out No longer eligible based on patient's age to complete this topic Varicella Immunization Aged Out No lo nger eligible based on patient's age to complete this topic Insurance OPT OUT NO COPAY NB Care Teams Electrical Technology Instructor Relationship Specialty Start Date End Date Provider, PHILIP Champion [id number] PCP - General Mortgage Operations Manager 06/28/19
--- OUTSIDE RECORDS SUMMARY | 2025-01-31 14:42 | XMS_ITS | Clinical Summary ---
Author Organization Healthcare Address [address] [place] [address] Care Team Providers Care Tower Hoist Operator Name Role Phone Clemencia Nash HANNA Primary Care Provider [phone] Allergies No known active allergies Medications desvenlafaxine (Pristiq) 50 MG 24 hr tablet Take 1 tablet (50 mg) by mouth 1 (one) time each day. 04/02/2023 Active nitrofurantoin (Macrodantin) 100 MG capsule TAKE ONE CAPSULE BY MOUTH AT BEDTIME FOR 30 DAYS; MUST BE TAKEN WITH MEAL/FOOD 04/27/2024 Active Active Problems Problem Noted Date Diagnosed Date Viral upper respiratory illness 05/03/2024 Viral syndrome 05/03/2024 Vaginal yeast infection 05/03/2024 Vaginal delivery 05/03/2024 Vaginal bleeding affecting early 05/03 UTI (urinary tract infection) 05/03/2024 Threatened 05/03/2024 Strep throat 05/03/2024 Sinusitis 05/03/2024 SAB (spontaneous ) 05/03/2024 Pre-eclampsia, mild 05/03/2024 depression 05/03/2024 Polycystic ovaries 05/03/2024 Pelvic pain in female 05/03/2024 PCB (post coital bleeding) 05/03/2024 Pain, dental 05/03/2024 Obstructed fallopian tubes 05/03/2024 Nausea and vomiting during 05/03/2024 Hypertension affecting 05/03/2024 Hemorrhoids during 05/03/2024 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 Endometriosis determined by laparoscopy 05/03/20 24 Dyspareunia, female 05/03/2024 Decreased libido 05/03/2024 Conjunctivitis 05/03/2024 Close exposure to COVID-19 virus 05/03/2024 Anemia due to acute blood loss 05/03/2024 Ureteritis 05/03/2024 Abnormal uterine bleeding 05/03/2024 Immunizations Immunization Administration Dates Next Due Influenza, injectable, quadr ivalent, preservative free 05/31/2022,05/07/2020,05/16/2019,05/17 Meningococcal MCV4, Unspecified 07/18/2012 Tdap 01/04/2018 Social History Tobacco Use Types Packs/Day Years Used Date Smoking Tobacco: Never Passive Smoke Exposure: Never Smokeless Tobacco: Never Tobacco Cessation:Counseling Given: Not Answered PHQ-2 Answer Date Recorded Patient Health Questionnaire-2 Score 0 05/03/2024 PHQ-2A Answer Date Recorded Patient Health Questionnaire-2 Score 0 05/09/2023 Comments Unknown Sex and Gender Information Value Date Recorded Sex Assigned at Not on file Legal Sex Female 6:53 PM EDT Gender Identity Not on file Sexual Orientation Not on file Last Filed Vital Signs Vital Sign Reading Time Taken Comments Blood Pressure 110/77 05/03/2024 10:53 AM EDT Pulse 92 05/03/2024 10:53 AM EDT Temperature 36.7 C (98.1 F) 05/03/2024 10:53 AM EDT Respiratory Rate - - Oxygen Saturation 97% 05/03/2024 10:53 AM EDT Inhaled Oxygen Concentration - - Weight 78.1 kg (172 lb 2.9 oz) 05/03/2024 10:53 AM EDT Height 162.6 cm (5' 4 ) 05/03/2024 10:53 AM EDT Body Mass Index 29.55 05/03/2024 10:53 AM EDT Plan of Treatment Health Maintenance Due Date Last Done Comments [facility]-HIV Screening 1995 [facility]-Hepatitis C Screening 1995 [facility]-Infant/Child/Adol SDOH Screenings 1995 [facility]-Varicella Vaccines (1 of 2 - 13+ 2-dose series) 2008 HPV Vaccines (1 - 3-dose series) 2010 [facility]- SDOH Screenings 2013 [facility]-Adult SDOH Screenings 2013 [facility]-Hepatitis A Vaccines (1 of 2 - Risk 2-dose series) 2014 [facility]-Hepatitis B Vaccines (1 of 3 - 19+ 3-dose series) 2014 [facility]-Pap Smear 2016 [id number] Vaccine (3 - 2023- season) 2024 02/20/2021, 01/30/2021 [facility]-Influenza Vaccine (Season Ended) 2025 05/31/2022, 05/07/2020, 05/16/2019, Additional history exists [facility]-Depression Screening 05/03/2025 05/03/2024 [facility]-DTaP,Tdap,and Td Vaccines (2 - Td or Tdap) 01/05/2028 01/04/2018 [facility]-Zoster Vaccines (1 of 2) 2045 [facility]-Obesity Intervention Completed 024, 05/03/2024, 05/09/2023 [facility]-HIB Vaccines Aged Out No longer e ligible based on patient's age to complete this topic [facility]-IPV Vaccines Aged Out No longer e ligible based on patient's age to complete this topic [facility]-Pneumococcal Vaccine: Pediatrics (0 to 5 Years) and At-Risk Patients (6 to 49 Years) Aged Out No longer eligible based on patient's age to complete this topic [facility]-Rotavirus Vaccines Aged Out No lo nger eligible based on patient's age [place] [id number] Care Teams Tower Hoist Operator Relationship Specialty Start Date End Date Clemencia Nash APRN [address] [facility] [address] [place] [address] PCP - General 03/10/23
--- NOTE | 2025-01-31 15:15 | US_ITS ---
PROCEDURE: US OB FOLLOW UP CLINICAL INDICATION: Needs 01/08/25 for SGA w/ AYAH COMPARISON: US US OB <= 14 WEEKS FETUS from 01/06/2024 US US TRANSVAGINAL from 01/26/2024 US US OB /MATERNAL DETAIL from 12/07/2024 FINDINGS: Transabdominal sonographic images of the pelvis were obtained. The following parameters are obtained: From her established due date she is 28weeks 2days Viable fetus in the transverse, head to right side presentation with an anterior placenta grade 1. The cervix measures 4.39 cm heart rate: 144bpm bpm. Average ultrasound age 28 weeks 0 days Estimated weight 1131 grams, 2 lb 8 oz BPD: 28weeks 0 days, 26 percentile HC: 28weeks 2days, 16 percentile AC: 27weeks 6days, 29 percent FL: 27weeks 5days, 19 percentile HC/AC: 1.1 FL/BPD: 0.75 FL/AC: 0.22 Growth percentile: 21 Amniotic fluid index: 16.13cm in a MVP 6.0 cm SD ratio normal 2.8-3.85 No obvious anomalies evident. profile seen, stomach, bladder, kidneys, three-vessel cord, four chamber heart appear normal. IMPRESSION: 1. Viable fetus in the transverse presentation with the head to the right side. The placenta is anterior grade 1. 2. Fluid is within normal limits with an amniotic fluid index 16.13 cm, MVP 6.0 cm. 3. There has been good interval growth with the fetus currently 21st percentile. 4. Limited anatomical scan appears normal. Dictated by: Drake Parker MD 01/31/2025 16:46 Drake Parker MD in OV 01/31/2025 16:46
== END 2025-01-31 23:59 | disposition home or self-care (01) ==
LOC: RAD 14:39
PROVIDERS: PCP Nurse Practitioner Family; Visit Provider Obstetrics & Gynecology
DX: O32.2XX0 Maternal care for transverse and oblique lie, not applicable or unspecified (principal); O36.5930 Maternal care for other known or suspected poor fetal growth, third trimester, not applicable or unspecified; Z3A.28 28 weeks gestation of pregnancy
CPT/HCPCS: 76816; 76820

== ENCOUNTER 2025-02-01 10:08 | Outpatient (CLI) | payer MEDICAID, SELFPAY ==
--- OUTSIDE RECORDS SUMMARY | 2025-02-01 10:11 | XMS_ITS | Encounter Summary ---
Author Organization [facility] Address [address] [place] [address] Care Team Providers Care Analytics Analyst Name Role Phone Clemencia Nash HANNA Primary Care Provider [phone] Reason for Referral * Consultation (Routine) - Closed Specialty Diagnoses / Procedures Referred By Lora hernandes Referred To Contact Gastroenterology Diagnoses Family history of endocrine and metabolic disease Isabel Palma APRN [address] [address] Phone: tel: fax: Referral ID Status Reason Start Date Expiration Date V isits Requested Visits Authorized [id number] Closed Specialty Services Required 03/27/2024 09/26/2025 1 1 Encounter Details Date Type Department Care Team (Late st Contact Info) Description 03/27/2024 Community [facility] [address] [place] [address] Isabel Palma APRN [address] [address] Family history of endocrine and [...] documented as of this encounter Care Teams Analytics Analyst Relationship Specialty Start Date End Date Clemencia Nash APRN [facility] [place] [address] PCP - General 03/10/23 documented as of this encounter
--- OUTSIDE RECORDS SUMMARY | 2025-02-01 10:11 | XMS_ITS | Clinical Summary ---
Author Organization Healthcare Address [address] [place] [address] Care Team Providers Care Car Rider Name Role Phone Clemencia Nash HANNA Primary Care Provider [phone] Allergies No known active allergies Medications desvenlafaxine [...] 19+ 3-dose series) 2014 [facility]-Pap Smear 2016 [id number] Vaccine (3 - 2023- season) 2024 02/20/2021, [...] patient's age to complete this topic Insurance Care Teams Car Rider Relationship Specialty Start Date End Date Clemencia Nash APRN [address] [facility] [address] [place] [address] PCP - General 03/10/23
--- OUTSIDE RECORDS SUMMARY | 2025-02-01 10:11 | XMS_ITS | Clinical Summary ---
Author Organization [facility] Address [address] [place] [address] Phone [email or web address] Care Team Providers Care Cant Hooker Name Role Phone Provider, No Primary Care [...] OPT OUT NO COPAY NB Care Teams Cant Hooker Relationship Specialty Start Date End Date Provider, PHILIP Champion [id number] PCP - General Reconditioner 06/28/19
[2025-02-01 11:39] LABS: Basophils % 0.2 % (0.1-2.0); Eosinophils % 0.3 % (0.1-12.0); Hematocrit 35.7 % (37.0-47.0); Hemoglobin 11.9 g/dL (12.2-16.2); Immature Granulocytes # 0.31 10^3uL; Immature Granulocytes % 2.6 %; Lymphocytes # 1.4 K/mm3 (0.7-4.5); Lymphocytes % 11.9 % (10-50); Mean Corpuscular HGB Conc 33.3 g/dL (31.8-35.4); Mean Corpuscular Hemoglobin 28.7 pg (27.0-31.2); Mean Platelet Volume 10.4 fl (7.4-10.4); Monocytes # 0.6 K/mm3 (0.1-1.0); Neutrophils # 9.6 K/mm3 (1.8-7.8); Nucleated Red Blood Cells # 0 10^3/uL; Nucleated Red Blood Cells % 0 %; Platelet Count 171 K/mm3 (142-424); Red Blood Count 4.15 M/mm3 (4.20-5.40); Red Cell Distribution Width 13.8 % (11.5-17.5); Red Cell Distribution Width-SD 42.7 fL
[2025-02-01 11:56] LABS: Glucose 1 Hour 135 mg/dL (74-100)
[2025-02-01 22:50] LABS: RPR W/RFX Titers Nonreactive (Nonreactive)
== END 2025-02-01 23:59 | disposition home or self-care (01) ==
LOC: LAB 10:09
PROVIDERS: PCP Nurse Practitioner Family; Visit Provider Obstetrics & Gynecology
DX: Z34.82 Encounter for supervision of other normal pregnancy, second trimester (principal); Z3A.00 Weeks of gestation of pregnancy not specified
CPT/HCPCS: 36415; 82947; 85025; 86592

== ENCOUNTER 2025-02-06 12:08 | Outpatient (CLI) | payer MEDICAID, SELFPAY ==
--- OUTSIDE RECORDS SUMMARY | 2025-02-06 12:10 | XMS_ITS | Encounter Summary ---
Author Organization [facility] Address [address] [place] [address] Care Team Providers Care Online Marketer Name Role Phone Clemencia Nash HANNA Primary Care Provider [phone] Reason for Referral * Consultation (Routine) - Closed Specialty Diagnoses / Procedures Referred By Lora hernandes Referred To Contact Gastroenterology Diagnoses Family history of endocrine and metabolic disease Isabel Palma APRN [address] [address] Phone: tel: fax: Referral ID Status Reason Start Date Expiration Date V isits Requested Visits Authorized [id number] Closed Specialty Services Required 03/27/2024 09/26/2025 1 1 Encounter Details Date Type Department Care Team (Late st Contact Info) Description 03/27/2024 Community [facility] Community Practice [address] [place] [address] Isabel Palma APRN [address] [address] Family history of endocrine and [...] documented as of this encounter Care Teams Online Marketer Relationship Specialty Start Date End Date Clemencia Nash APRN [facility] [place] [address] PCP - General 03/10/23 documented as of this encounter
--- OUTSIDE RECORDS SUMMARY | 2025-02-06 12:11 | XMS_ITS | Clinical Summary ---
Author Organization Healthcare Address [address] [place] [address] Care Team Providers Care Occasional Babysitter Name Role Phone Clemencia Nash HANNA Primary Care Provider [phone] Allergies No known active allergies Medications desvenlafaxine [...] 19+ 3-dose series) 2014 [facility]-Pap Smear 2016 [id number] Vaccine (3 - 2023- season) 2024 02/20/2021, [...] patient's age to complete this topic Insurance [id number] [id number] [facility] MEDICAID [id number] Care Teams Occasional Babysitter Relationship Specialty Start Date End Date Clemencia Nash APRN [address] [facility] [address] [place] [address] PCP - General 03/10/23
--- OUTSIDE RECORDS SUMMARY | 2025-02-06 12:11 | XMS_ITS | Clinical Summary ---
Author Organization [facility] Address [address] [place] [address] Phone [email or web address] Care Team Providers Care Cigar Wrapper Name Role Phone Provider, No Primary Care [...] OPT OUT NO COPAY NB Care Teams Cigar Wrapper Relationship Specialty Start Date End Date Provider, PHILIP Champion [id number] PCP - General Director Online Marketing 06/28/19
[2025-02-06 12:42] LABS: Glucose,Fasting 84 mg/dl (74-100)
[2025-02-06 15:09] LABS: Glucose 2 Hour 137 mg/dL (74-100)
[2025-02-06 17:07] LABS: Glucose 1 Hour 133 mg/dL (74-100); Glucose 3 Hour 144 mg/dL (74-100)
== END 2025-02-06 23:59 | disposition home or self-care (01) ==
LOC: LAB 12:08
PROVIDERS: PCP Nurse Practitioner Family; Visit Provider Obstetrics & Gynecology
DX: Z34.83 Encounter for supervision of other normal pregnancy, third trimester (principal); Z3A.00 Weeks of gestation of pregnancy not specified
CPT/HCPCS: 36415; 82951

== ENCOUNTER 2025-03-25 10:38 | Outpatient (CLI) | payer MEDICAID, SELFPAY ==
--- OUTSIDE RECORDS SUMMARY | 2025-03-26 13:57 | XMS_ITS | Encounter Summary ---
Author Organization [facility] Address [address] [place] [address] Care Team Providers Care Foot Drill Operator Name Role Phone Clemencia Nash HANNA Primary Care Provider [phone] Reason for Referral * Consultation (Routine) - Closed Specialty Diagnoses / Procedures Referred By Lora hernandes Referred To Contact Gastroenterology Diagnoses Family history of endocrine and metabolic disease Isabel Palma APRN [address] [address] Phone: tel: fax: Referral ID Status Reason Start Date Expiration Date V isits Requested Visits Authorized [id number] Closed Specialty Services Required 03/27/2024 09/26/2025 1 1 Encounter Details Date Type Department Care Team (Late st Contact Info) Description 03/27/2024 Community [facility] Community Practice [address] [place] [address] Isabel Palma APRN [address] [address] Family history of endocrine and [...] documented as of this encounter Care Teams Foot Drill Operator Relationship Specialty Start Date End Date Clemencia Nash APRN [facility] [place] [address] PCP - General 03/10/23 documented as of this encounter
--- OUTSIDE RECORDS SUMMARY | 2025-03-26 13:57 | XMS_ITS | Clinical Summary ---
Author Organization Healthcare Address [address] [place] [address] Care Team Providers Care Playroom Attendant Name Role Phone Clemencia Nahs HANNA Primary Care Provider [phone] Allergies No known active allergies Medications desvenlafaxine [...] of 2 - 13+ 2-dose series) 2008 [facility]- SDOH Screenings 2013 [facility]-Adult SDOH Screenings 2013 [facility]-Hepatitis A Vaccines (1 of 2 - Risk 2-dose series) 2014 [facility]-Hepatitis B Vaccines (1 of 3 - 19+ 3-dose series) 2014 [facility]-Pap Smear 2016 HPV Vaccines (1 - 3-dose SCDM series) 2022 [id number] Vaccine (3 - 2023- season) 2024 02/20/2021, 01/30/2021 [facility]-Influenza Vaccine (#1) 04/15/202505/31, 05/07/2020, 05/16/2019, Additional history exists [facility]-Depression Screening [...] patient's age to complete this topic Insurance [id number] [facility] [id number] [facility] [place] [address] Care Teams Playroom Attendant Relationship Specialty Start Date End Date Clemencia Nash APRN [address] [facility] 36 [place] [address] PCP - General 03/10/23
--- OUTSIDE RECORDS SUMMARY | 2025-03-26 13:57 | XMS_ITS | Clinical Summary ---
Author Organization [facility] Address [address] [place] [phone] Phone [email or web address] Care Team Providers Care Manager Fine Dining Name Role Phone Provider, No Primary Care [...] Health Maintenance Due Date Last Done Comments Cervical Cancer Screening Combo 1995 Dental Cleaning/Exam 1995 HPV / Cotest 1995 Pap Testing 1995 HPV Immunization (1 - 2-dose series) 2006 Hepatitis B Immunization (1 of 3 - 19+ 3-dose series) 2014 Covid-19 Immunization ( - season) 2024 Influenza Immunization (#1) 04/15/202504/16, 05/16/2019 Tetanus Diphtheria and Pertussis Immunization (2 [...] OPT OUT NO COPAY NB Care Teams Manager Fine Dining Relationship Specialty Start Date End Date Provider, PHILIP Champion [id number] PCP - General Check Processing Clerk 06/28/19
== END 2025-03-25 23:59 | disposition home or self-care (01) ==
LOC: LAB.DROPOF 03-26 13:54
PROVIDERS: PCP Obstetrics & Gynecology; Visit Provider Obstetrics & Gynecology
DX: O99.330 Smoking (tobacco) complicating pregnancy, unspecified trimester (principal); R12 Heartburn
CPT/HCPCS: 86403

== ENCOUNTER 2025-04-03 08:12 | Outpatient (CLI) | payer MEDICAID, SELFPAY ==
--- NOTE | 2025-04-03 08:15 | US_ITS ---
PROCEDURE: US OB FOLLOW UP CLINICAL INDICATION: Maternal Obesity COMPARISON: US US OB /MATERNAL DETAIL from 12/07/2024 US US OB FOLLOW UP from 01/31/2025 FINDINGS: Transabdominal sonographic images of the pelvis were obtained. The following parameters are obtained: From her established due date she is 37weeks 1day Viable fetus in the cephalic presentation with an anterior placenta grade 2. The cervix measures 5.02 cm heart rate: 136bpm bpm. Average ultrasound age 36 weeks 6 days Estimated weight 3130 grams, 6 lb 14 oz BPD: 36weeks 1day, 34th percentile HC: 36weeks 3days, 11th percentile AC: 38weeks 0 days, 82 percentile FL: 36weeks 4days, 33 percent HC/AC: 0.95 FL/BPD: 0.8 FL/AC: 0.21 Growth percentile: 57 Amniotic fluid index: 15.86cm, MVP 4.97 cm No obvious anomalies evident. profile seen, stomach, bladder, kidneys, three-vessel cord appear normal. IMPRESSION: 1. Viable fetus in the cephalic presentation with an anterior placenta grade 2. 2. The fluid is within normal limits with an amniotic fluid index 15.86 cm, MVP 4.97 cm. 3. There has been good interval growth with the fetus currently 57th percentile. 4. Limited anatomical scan appears normal. Dictated by: Drake Parker MD 04/03/2025 16:21 Drake Parker MD in OV 04/03/2025 16:21
== END 2025-04-03 23:59 | disposition home or self-care (01) ==
LOC: RAD 08:12
PROVIDERS: PCP Obstetrics & Gynecology; Visit Provider Obstetrics & Gynecology
DX: O99.213 Obesity complicating pregnancy, third trimester (principal); O99.333 Smoking (tobacco) complicating pregnancy, third trimester; O09.293 Supervision of pregnancy with other poor reproductive or obstetric history, third trimester; O26.893 Other specified pregnancy related conditions, third trimester; E66.9 Obesity, unspecified; R12 Heartburn; Z3A.37 37 weeks gestation of pregnancy
CPT/HCPCS: 76816

== ENCOUNTER 2025-04-09 09:20 | Outpatient (CLI) | payer MEDICAID, SELFPAY ==
--- OUTSIDE RECORDS SUMMARY | 2025-04-11 10:31 | XMS_ITS | Encounter Summary ---
Author Organization [facility] Address [address] [place] [address] Care Team Providers Care Geometry Professor Name Role Phone Clemencia Nash HANNA Primary Care Provider [phone] Reason for Referral * Consultation (Routine) - Closed Specialty Diagnoses / Procedures Referred By Lora hernandes Referred To Contact Gastroenterology Diagnoses Family history of endocrine and metabolic disease Isabel Palma APRN [address] [address] Phone: tel: fax: Referral ID Status Reason Start Date Expiration Date V isits Requested Visits Authorized [id number] Closed Specialty Services Required 03/27/2024 09/26/2025 1 1 Encounter Details Date Type Department Care Team (Late st Contact Info) Description 03/27/2024 Community [facility] Community Practice [address] [place] [address] Isabel Palma APRN [address] [address] Family history of endocrine and [...] documented as of this encounter Care Teams Geometry Professor Relationship Specialty Start Date End Date Clemencia Nash APRN [facility] [place] [address] PCP - General 03/10/23 documented as of this encounter
--- OUTSIDE RECORDS SUMMARY | 2025-04-11 10:31 | XMS_ITS | Clinical Summary ---
Author Organization [facility] Address [address] [place] [address] Phone [email or web address] Care Team Providers Care Vineyard Tender Name Role Phone Provider, No Primary Care [...] OPT OUT NO COPAY NB Care Teams Vineyard Tender Relationship Specialty Start Date End Date Provider, PHILIP Champion [id number] PCP - General Track Worker 06/28/19
--- OUTSIDE RECORDS SUMMARY | 2025-04-11 10:32 | XMS_ITS | Clinical Summary ---
Author Organization Healthcare Address [address] [place] [address] Care Team Providers Care Sleeve Baster Name Role Phone Clemencia Nash HANNA Primary Care Provider [phone] Allergies No known active allergies Medications desvenlafaxine [...] Vaccines (1 - 3-dose SCDM series) 2022 [id number] Vaccine (3 - 2023- season) 2024 02/20/2021, [...] patient's age to complete this topic Insurance [id number] [address] [facility] [address] [id number] [facility] [place] [address] Care Teams Sleeve Baster Relationship Specialty Start Date End Date Clemencia Nash APRN [address] [facility] [address] [place] [address] PCP - General 03/10/23
== END 2025-04-09 23:59 ==
LOC: LAB.DROPOF 04-11 10:29
PROVIDERS: PCP Obstetrics & Gynecology; Visit Provider Obstetrics & Gynecology
DX: O99.330 Smoking (tobacco) complicating pregnancy, unspecified trimester (principal); B95.1 Streptococcus, group B, as the cause of diseases classified elsewhere; Z87.59 Personal history of other complications of pregnancy, childbirth and the puerperium; Z86.59 Personal history of other mental and behavioral disorders
CPT/HCPCS: 87086

== ENCOUNTER 2025-04-18 03:43 | Inpatient (IN) | payer MEDICAID, SELFPAY ==
--- OUTSIDE RECORDS SUMMARY | 2025-04-17 18:48 | XMS_ITS | Clinical Summary ---
Author Organization [facility] Address [address] [place] [address] Phone [email or web address] Care Team Providers Care Weight Loss Consultant Name Role Phone Provider, No Primary Care [...] OPT OUT NO COPAY NB Care Teams Weight Loss Consultant Relationship Specialty Start Date End Date Provider, PHILIP Champion [id number] PCP - General Cigarette Packer 06/28/19
--- OUTSIDE RECORDS SUMMARY | 2025-04-17 18:48 | XMS_ITS | Encounter Summary ---
Author Organization [facility] Address [address] [place] [address] Care Team Providers Care Plant Utilities Engineer Name Role Phone Clemencia Nash HANNA Primary Care Provider [phone] Reason for Referral * Consultation (Routine) - Closed Specialty Diagnoses / Procedures Referred By Lora hernandes Referred To Contact Gastroenterology Diagnoses Family history of endocrine and metabolic disease Isabel Palma APRN [address] [address] Phone: tel: fax: Referral ID Status Reason Start Date Expiration Date V isits Requested Visits Authorized [id number] Closed Specialty Services Required 03/27/2024 09/26/2025 1 1 Encounter Details Date Type Department Care Team (Late st Contact Info) Description 03/27/2024 Community [facility] Community Practice [address] [place] [address] Isabel Palma APRN [address] [address] Family history of endocrine and [...] documented as of this encounter Care Teams Plant Utilities Engineer Relationship Specialty Start Date End Date Clemencia Nash APRN [facility] [place] [address] PCP - General 03/10/23 documented as of this encounter
--- OUTSIDE RECORDS SUMMARY | 2025-04-17 18:48 | XMS_ITS | Clinical Summary ---
Author Organization Healthcare Address [address] [place] [address] Care Team Providers Care Tattooer Name Role Phone Clemencia Nash HANNA Primary Care Provider [phone] Allergies No known active allergies Medications desvenlafaxine [...] Vaccines (1 - 3-dose SCDM series) 2022 [id number] Vaccine (3 - 2023- season) 2024 02/20/2021, [...] to complete this topic Insurance Care Teams Tattooer Relationship Specialty Start Date End Date Clemencia Nash APRN [address] [facility] [address] [place] [address] PCP - General 03/10/23
[2025-04-17 19:29] VITALS: BMI 33.3
[2025-04-17 19:43] VITALS: BP 128/87; PULSE 84; RESP 18; TEMP 36.9; O2SAT 98; BMI 33.3
[2025-04-17 21:20] LABS: Hematocrit 32.0 % (37.0-47.0); Hemoglobin 10.5 g/dL (12.2-16.2); Immature Granulocytes % 2.2 %; Mean Corpuscular HGB Conc 32.8 g/dL (31.8-35.4); Mean Corpuscular Hemoglobin 26.4 pg (27.0-31.2); Mean Corpuscular Volume 80.6 fl (81-99); Nucleated Red Blood Cells % 0 %; Platelet Count 164 K/mm3 (142-424); Red Blood Count 3.97 M/mm3 (4.20-5.40); Red Cell Distribution Width-SD 40.4 fL; White Blood Count 10.4 K/mm3 (4.8-10.8)
[2025-04-17] MEDS: AMPICILLIN SODIUM 2 GM in 0.9 % SODIUM CHLORIDE 100 ML IV (22:37)
[2025-04-17] MEDS: DEXTROSE 5%-LACTATED RINGERS 1,000 ML 125 ML IV (22:38)
[2025-04-18] MEDS: AMPICILLIN SODIUM 1 GM in 0.9 % SODIUM CHLORIDE 50 ML IV ×4 (04:34→15:33)
[2025-04-18] MEDS: OXYTOCIN/RINGERS LACTATE 30 UNITS/500 ML BAG IV (04:48)
[2025-04-18 07:15] VITALS: BP 114/70; PULSE 90; RESP 18; TEMP 36.9; O2SAT 99
[2025-04-18] MEDS: LACTATED RINGERS 1000ML 1,000 ML 500 ML IV (07:24)
[2025-04-18 08:18] LABS: RPR W/RFX Titers Nonreactive (Nonreactive)
--- NOTE | 2025-04-18 08:34 | P.PNANES_ITS ---
[facility] Disclaimer: The information contained in this section may have been updated after the patient was seen, as this information can be updated by other users. Medical History Positive GBS test History of depression Heartburn during Tobacco use affecting , antepartum Episodic cigarette smoking dependence History of gestational hypertension Renal stone Furuncle Migraine Family history of breast cancer in first degree relative Depression Anxiety Surgical History History of wisdom tooth extraction History of cholecystectomy History of appendectomy Family History Mother Cancer Other Hypertension Kevin disease Social History Smoking Status: Current every day smoker tobacco type: e-cigarettes second hand exposure: No alcohol intake: current substance use type: denies use current occupational status: employed Travel in the last 8 weeks?: None housing: house current occupation: [employer] current occupational exposures/hazards: No caffeine: Yes Have you lived/traveled outside US in past 30 days?: No Contact w/someone who lives/traveled outside US past 30 days?: No Exposure to someone with infectious disease in past 14 days?: No Do you have a fever (greater than 100.4 F or 38 C)?: No Have you tested positive for COVID-19?: No Exposed to someone with COVID-19 in past 14 days?: No Do you have a sore throat?: No Do you have a cough?: No Do you have any weakness?: No Do you have any diarrhea?: No Are you experiencing any unusual bleeding?: No Do you have any muscle aches/pain?: No Do you have any abdominal pain?: No Are you experiencing loss of taste or smell?: No [facility] Anesthesia Checklist Patient Identification Patient Identification: Arm Band and Verbal (Name & ) Structural Data Admitted From: Home Planned Operative Procedure/s: epidural Consent for Planned Operative Procedure(s) Verified: Yes Verified Documents: Surgical Consent and History and Physical NPO Status Verified Time NPO: 00:00 Additional verifications Patient : Yes Anesthesia Reactions: No Hx Blood Transfusions: No Blood Transfusion Reaction: No Airway Assessment Mallampati Score:: Class II Dentition: Good Dentition Neurological Assessment Level of Consciousness: Awake, Alert and Appropriate Hx Seizures: No Numbness or tingling in extremities: No Anesthesia Plan Anesthesia Risk discussed: Yes Anesthesia Plan: Verified ASA Class: II Anesthesia Type: Epidural
--- NOTE | 2025-04-18 08:43 | P.HP_ITS ---
OB - H&P: HPI Antepartum History of Present Illness Chief complaint: Elective induction of labor History of present illness: Ms Shahla Craig is 29 yo at 39w2d who presents to [facility] L&D for scheduled elective induction of labor. She has had good care. complicated by tobacco use during . History of GHTN in prior . History of severe depression. Baby is active. No complaints or concerns. GBS positive. History of Present Criteria for establishing EDC:: LMP confirmed by 1st trimester US care: good care Ultrasounds: normal mid trimester US Obstetrical complications: none Medical complications: none Labs Blood type: A (+) positive Rubella: immune RPR/VDRL: nonreactive GBS status: positive HBsAG: negative PFSH PFSH Disclaimer: The information contained in this section may have been updated after the patient was seen, as this information can be updated by other users. Medical History Positive GBS test History of depression Heartburn during Tobacco use affecting , antepartum Episodic cigarette smoking dependence History of gestational hypertension Renal stone Furuncle Migraine Family history of breast cancer in first degree relative Depression Anxiety Surgical History History of wisdom tooth extraction History of cholecystectomy History of appendectomy Family History Mother Cancer Other Hypertension Kevin disease Social History Smoking Status: Current every day smoker tobacco type: e-cigarettes second hand exposure: No alcohol intake: current substance use type: denies use current occupational status: employed Travel in the last 8 weeks?: None housing: house current occupation: [employer] current occupational exposures/hazards: No caffeine: Yes Have you lived/traveled outside [place] in past 30 days?: No Contact w/someone who lives/traveled outside [place] past 30 days?: No Exposure to someone with infectious disease in past 14 days?: No Do you have a fever (greater than 100.4 F or 38 C)?: No Have you tested positive for COVID-19?: No Exposed to someone with COVID-19 in past 14 days?: No Do you have a sore throat?: No Do you have a cough?: No Do you have any weakness?: No Do you have any diarrhea?: No Are you experiencing any unusual bleeding?: No Do you have any muscle aches/pain?: No Do you have any abdominal pain?: No Are you experiencing loss of taste or smell?: No Other Medical History Have you received the Flu Vaccine for this season: No Have you received the Pneumonia Vaccine: No Review of Systems Review of Systems Review of systems:: pertinent systems reviewed and negative unless documented below Meds Home Medications and Allergies Home Medications ?Medication ?Instructions ?Recorded ?Confirmed ?Type vits no.126-ferrous fum 1 tab PO DAILY 04/09/25 History 28 mg iron-folic acid 800 mcg tablet (Classic ) pantoprazole 40 mg tablet,delayed 40 mg PO DAILY #30 t abs 04/09/25 04/09/25 Rx release (Protonix) New Prescriptions to Start Prescriptions: Allergies Allergy/AdvReac Type Severity Reaction Status Date / Time No Known Allergies Allergy Verified 04/09/25 09:06 OB - H&P: Exam Physical Exam Vital signs: Temp Pulse Resp BP Pulse Ox O2 Del Method 98.4 F 84 18 128/87 98 Room Air 04/17/25 19:43 04/17/25 19:43 04/17/25 19:43 04/17/25 19:43 04/17/25 19:43 04/17/25 19:43 Constitutional no acute distress and cooperative Routine HEENT Exam Head: Present normocephalic and atraumatic Eye: Absent conjunctivae pink ENT: Present mucous membranes moist Routine Neck Exam Present full ROM Routine Respiratory Exam Present CTA bilaterally and normal respiratory effort Routine Cardiovascular Exam Present RRR Routine Abdominal Exam Present soft (Gravid); Absent tenderness Routine Rectal Exam Patient deferred: visual exam Routine Exam External: Present normal urethra appearance; Absent erythema, swelling, tenderness, lesions or lacerations Routine Extremities Exam Present full ROM; Absent edema or calf tenderness Routine Neurological Exam Present alert, moving all extremities and normal speech Routine Psychiatric Exam Present normal affect and cooperative Detailed Labor and Delivery Exam Dilation (cm): 2 Effacement (%): 50 Cervix position: posterior station: -3 Consistency: soft Membranes: intact Baseline heart rate: 140 monitor accelerations: Absent monitor decelerations: None 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 variability: Moderate (11-25) Contraction frequency (min): 3 OB - Results Labs Labs: Short CBC 04/17/25 Range/Units 19:38 WBC 10.4 (4.8-10.8) K/mm3 Hgb 10.5 L (12.2-16.2) g/dL Hct 32.0 L (37.0-47.0) % Plt Count 164 (142-424) K/mm3 OB - A/P Antepartum (1) Tobacco use affecting , antepartum: Status: Acute (2) Positive GBS test: Status: Acute (3) History of depression: Status: Acute (4) History of gestational hypertension: Status: Acute Additional Plan Additional Information:: Admit to [facility] for scheduled elective induction of labor She received Cytotec 50 mcg x 1 dose followed by Pitocin GBS positive. Ampicillin for GBS prophylaxis Close monitoring Anticipate
--- NOTE | 2025-04-18 09:58 | [facility].PHAINT1 ---
Pharmacy Intervention Comments: MEDICATION RECONCILIATION COMPLETE USING EXTERNAL PHARMACY FILL HISTORY AND RECENT OB OFFICE VISIT NOTE.
[2025-04-18] MEDS: DEXTROSE 5%-LACTATED RINGERS 1,000 ML 125 ML IV (11:41)
[2025-04-18] MEDS: OXYTOCIN/RINGERS LACTATE 30 UNITS/500 ML BAG 40 UNITS IV (17:11)
--- NOTE | 2025-04-18 17:24 | EXP.DN ---
Delivery Note Delivery Date:: 04/18/25 Delivery Time:: 17:08 Anesthesia Type: Epidural Was labor medically induced?: No Induction method: per misoprostol protocol Gestational age (weeks): 39 delivered prior to 39 weeks?: No Gender: Female at 1 minute: 8 at 5 minutes: 9 Delivery Procedure:: Mom complete with epidural. Pushed for approximately 14 minutes. Head delivered spontaneously over intact perineum in DAR position. Nuchal cord x 1 delivered through. Anterior shoulder delivered with gentle downward pressure. Baby's posterior arm was across her chest. Posterior shoulder, posterior arm and remainder of body delivered spontaneously. Baby placed on maternal abdomen, mouth and nares bulb suctioned, warmed/dried and stimulated. Delayed cord clamping was performed for 120 seconds. Cord was clamped and cut by father of baby. Cord blood was obtained. Placenta delivered spontaneously and intact. Periurethral abrasions were hemostatic. Mom and baby were skin to skin and doing well after delivery. Live female baby (baby's name is Stevie) APGARs 8 (1 min), 9 (5 min) EBL 50 mL Placental Delivery Description: Spontaneous
[2025-04-18] MEDS: BENZOCAINE-MENTHOL SPRAY 56GM CAN TP (19:37)
[2025-04-18] MEDS: WITCH HAZEL 40 PADS/BOX 1 EACH TP (19:37)
[2025-04-18] MEDS: ONDANSETRON 4MG/2ML VIAL 4 MG IV (19:37)
[2025-04-18] MEDS: ACETAMINOPHEN 500MG TAB 1000 MG PO (19:38)
[2025-04-18] MEDS: IBUPROFEN 400 MG TABLET 800 MG PO (19:38)
[2025-04-18] MEDS: OXYCODONE 5MG IMMEDIATE RELEASE TABLET 5 MG PO (21:59)
[2025-04-19] MEDS: ACETAMINOPHEN 500MG TAB 1000 MG PO ×3 (00:50→22:14)
[2025-04-19] MEDS: OXYCODONE 5MG IMMEDIATE RELEASE TABLET 5 MG PO (02:22)
[2025-04-19] MEDS: IBUPROFEN 400 MG TABLET 800 MG PO ×2 (02:22→16:35)
[2025-04-19 04:42] VITALS: BP 128/77; PULSE 62; RESP 12; TEMP 36.5; O2SAT 98
[2025-04-19] MEDS: ALUMINUM/MAGNESIUM/SIMETHICONE 30ML UDC 30 ML PO (04:42)
[2025-04-19] MEDS: ONDANSETRON 4MG/2ML VIAL 4 MG IV (04:43)
--- NOTE | 2025-04-19 05:03 | ECG_ITS ---
APPROVED REPORT Exam: Resting ECG HR:73 bpm ECG Measurements Heart Rate [address] 133 P 36 QRSd 72 QRS 66 QT 395 T 54 QTc 420 Conclusion SINUS RHYTHM NORMAL ECG UNCONFIRMED REPORT Electronically signed by : Cedric Downs MD 04/20/2025 08:08:50
[2025-04-19 06:36] LABS: Hematocrit 31.8 % (37.0-47.0); Hemoglobin 10.5 g/dL (12.2-16.2); Immature Granulocytes % 1.0 %; Mean Corpuscular HGB Conc 33.0 g/dL (31.8-35.4); Mean Corpuscular Hemoglobin 26.7 pg (27.0-31.2); Mean Corpuscular Volume 80.9 fl (81-99); Nucleated Red Blood Cells % 0 %; Platelet Count 144 K/mm3 (142-424); Red Blood Count 3.93 M/mm3 (4.20-5.40); Red Cell Distribution Width-SD 40.0 fL; White Blood Count 12.9 K/mm3 (4.8-10.8)
[2025-04-19 08:37] VITALS: BP 109/69; PULSE 69; RESP 18; TEMP 36.8; O2SAT 100
--- NOTE | 2025-04-19 09:47 | EXP.ACUTE.PN ---
Subjective *Date: 04/19/25 *Time: 09:47 Interval history: She is 1 day from a vaginal delivery. She is doing very well. She is breast-feeding. Her lochia is normal. Medical Exam Vital signs and Labs for Last 24 Hours: Vital Signs Temp Pulse Resp BP Pulse Ox O2 Del Method 04/19/25 08:37 98.2 F 69 18 109/69 L 100 Room Air 04/19/25 04:42 97.7 F 62 12 128/77 98 Room Air Intake and Output 04/18/25 04/19/25 04/19/25 19:59 03:59 11:59 Intake Total 1445.500 / 1445.500 Output Total 1800 / 1800 Balance -354.500 / -354.500 Intake: Intake, Total IV Amount 1445.500 / 1445.500 Ampicillin Sodium 1 gm In 0.9 % 100 / 100 Sodium Chloride 50 ml @ 100 mls/hr IV Q4H [facility] Rx#:[id number] Dextrose 5%-Lactated Ringers 1, 771 / 771 000 ml @ 125 mls/hr IV .Q8H [facility] Rx#:[id number] Oxytocin/Ringers Lactate 30 74.5 / 74.5 units In 500 ml @ 3 mls/hr IV . Q25H ONE Rx#:[id number] Oxytocin/Ringers Lactate 30 500.000 / 500.000 units In 500 ml @ 40 mls/hr IV .[id number] [facility] Rx#:[id number] Output: Output, Urine Amount (Catheter) 1800 / 1800 Gonsalves 1800 / 1800 Laboratory Results - last 24 hr 04/19/25 05:13: WBC 12.9 H, RBC 3.93 L, Hgb 10.5 L, Hct 31.8 L, MCV 80.9 L, MCH 26.7 L, MCHC 33.0, RDW 13.7, Plt Count 144, MPV 11.9 H, Neut % (Auto) 76.4, Lymph % (Auto) 13.2, [place] % (Auto) 8.6, Eos % (Auto) 0.5, Baso % (Auto) 0.3, Neut # (Auto) 9.8 H, Lymph # (Auto) 1.7, [place] # (Auto) 1.1 H, Eos # (Auto) 0.1, Baso # (Auto) 0.0 I & O for Labs for Last 24 Hours: Intake & Output 04/16/25 04/17/25 04/18/25 04/19/25 11:59 11:59 11:59 11:59 Intake Total 2241.75 / 2241.75 1445.500 / 1445.500 Output Total 1800 / 1800 Balance 2241.75 / 2241.75 -354.500 / -354.500 Weight 194 lb Head: Present normocephalic ENT: Present normal exam Neck: Present normal inspection Respiratory: Present normal respiratory effort; Absent accessory muscle use Assessment and Plan *Assessment and plan (1) Positive GBS test: Status: Acute Category: Medical Code(s): B95.1 - Streptococcus, group B, as the cause of diseases classified elsewhere (2) Normal delivery: Status: Acute Category: Medical Code(s): O80 - Encounter for full-term uncomplicated delivery Plan She is doing very well this morning. She is breast-feeding. She was group B streptococcus positive so we are going to watch the baby until tomorrow. If she is doing well we will plan to send her home tomorrow.
[2025-04-19 16:22] VITALS: BP 109/71; PULSE 62; RESP 16; TEMP 36.7; O2SAT 98
[2025-04-19] MEDS: PRENATAL MULTIVITAMIN W/IRON 1 EACH PO (16:35)
[2025-04-19] MEDS: SENNA 8.6MG TABLET 8.6 MG PO (16:38)
[2025-04-19 20:20] VITALS: BP 117/65; PULSE 66; RESP 18; TEMP 36.9; O2SAT 98
[2025-04-20 04:36] VITALS: BP 127/70; PULSE 60; RESP 20; TEMP 36.6; O2SAT 98
[2025-04-20 08:44] VITALS: BP 125/84; PULSE 64; RESP 17; TEMP 36.7; O2SAT 99
--- NOTE | 2025-04-20 10:03 | P.DS_ITS ---
General Admission date:: 04/18/25 Discharge date: 04/20/25 HPI HPI HPI: Ms Shahla Craig is 29 yo at 39w2d who presents to [facility] L&D for scheduled elective induction of labor. She has had good care. complicated by tobacco use during . History of GHTN in prior . History of severe depression. Baby is active. No complaints or concerns. GBS positive. Hospital Course Hospital Course Hospital Course: She underwent induction of labor at term and progressed to full dilation. She delivered spontaneously a liveborn female child at 17 oh 8 in the evening of April 18, 2025. Baby weighed 8 pounds 2 ounces and was 19 inches long. She had Apgars of 8 at 1 minute and 9 at 5 minutes. She has done well and has remained afebrile throughout hospitalization. She is eating and drinking and ambulating. She is breast- feeding. Her lochia is normal. She has a history of depression and was started on Pristiq to prevent her severe depression. She has a positive blood, she is rubella immune and was group B streptococcus positive. We have monitored the baby for 48 hours and the baby seems to be doing well. Should be discharged home to follow-up with Dr. Burton in approximately 2 weeks time. She will continue with her vitamins and iron. Her condition on discharge is stable and improved. Exam Data for Last 24 hours Vital signs and Labs for Last 24 Hours: Temp Pulse Resp BP Pulse Ox O2 Del Method 97.9 F 60 20 127/70 98 Room Air 04/20/25 04:36 04/20/25 04:36 04/20/25 04:36 04/20/25 04:36 04/20/25 04:36 04/20/25 04:36 I & O for Last 24 hours: Intake & Output 04/17/25 04/18/25 04/19/25 04/20/25 11:59 11:59 11:59 11:59 Intake Total 2241.75 / 2241.75 1445.500 / 1445.500 Output Total 1800 / 1800 Balance 2241.75 / 2241.75 -354.500 / -354.500 Weight 194 lb Constitutional Constitutional: no acute distress *Routine HEENT Exam Head: Present normocephalic *Routine Respiratory Exam Respiratory: Present accessory muscle use and normal respiratory effort DS: Diagnosis Discharge Diagnosis (1) Positive GBS test: Status: Acute Code(s): B95.1 - Streptococcus, group B, as the cause of diseases classified elsewhere (2) Normal delivery: Status: Acute Code(s): O80 - Encounter for full-term uncomplicated delivery (3) History of depression: Status: Acute Code(s): Z87.59 - Personal history of other complications of , childbirth and the puerperium; Z86.59 - Personal history of other mental and behavioral disorders Meds Home Medications and Allergies Home Medications ?Medication ?Instructions ?Recorded ?Confirmed ?Type vits no.126-ferrous fum 1 tab PO DAILY 04/18/25 History 28 mg iron-folic acid 800 mcg tablet (Classic ) pantoprazole 40 mg tablet,delayed 40 mg PO DAILY #30 t abs 04/09/25 04/18/25 Rx release (Protonix) desvenlafaxine succinate 50 mg 50 mg PO DAILY #30 tabs 04/18/25 Rx tablet,extended release 24 hr (Pristiq) New Prescriptions to Start Prescriptions: desvenlafaxine succinate [Pristiq] Jenise Goode Allergies Allergy/AdvReac Type Severity Reaction Status Date / Time No Known Allergies Allergy Verified 04/09/25 09:06 Discharge Plan Disposition Patient Disposition: Home, Self-Care Discharge Order Discharge Orders: Discharge Order (Routine); Ordered 04/20/25 Ordered By: Drake Parker Follow up Plan Follow up with: Jenise Goode DO [Staff Physician, [employer]] - Enter time for follow up Prescriptions/Medication Reconciliation: New desvenlafaxine succinate [Pristiq] 50 mg tablet extended release 24 hr 50 mg PO DAILY Qty: 30 2RF Continued pantoprazole [Protonix] 40 mg tablet,delayed release (DR/EC) 40 mg PO DAILY Qty: 30 2RF Classic 28 mg iron- 800 mcg tablet 1 tab PO DAILY Problem Reconciliation Problems Reviewed?: Yes Patient Discharge Instructions ACTIVITY: No heavy lifting DIET: continue same diet Patient Instructions: Depression, Hemorrhage, DI for Lab or and Delivery, Vaginal , DI for Pre-eclampsia, [facility] Post Discharge Instructions Print Language: Swedish Providers Primary Care Provider: Minerva,Isabel L Admit Provider: Otilia Burton Attending Provider: Otilia Burton
== END 2025-04-20 11:38 | disposition home or self-care (01) | DRG 807 ==
LOC: OBOUT 03:43 → OB 03:43
PROVIDERS: Obstetrics & Gynecology; Admitting Provider Obstetrics & Gynecology; PCP Nurse Practitioner Family; Visit Provider Obstetrics & Gynecology
DX: O99.824 Streptococcus B carrier state complicating childbirth (principal); Z37.0 Single live birth; Z3A.39 39 weeks gestation of pregnancy; O99.334 Smoking (tobacco) complicating childbirth; F17.290 Nicotine dependence, other tobacco product, uncomplicated; O69.81X0 Labor and delivery complicated by cord around neck, without compression, not applicable or unspecified; O71.82 Other specified trauma to perineum and vulva; Z87.59 Personal history of other complications of pregnancy, childbirth and the puerperium; Z86.59 Personal history of other mental and behavioral disorders; Z23 Encounter for immunization
CPT/HCPCS: 36415; 51702; 59025; 85025; 86592; 86850; 93005; 94761; 99212; C1758; G0463; J0290; J2003; J2405; J2795; J3010; J7120; J7121

== ENCOUNTER 2025-07-25 22:52 | Emergency (ER) | payer MEDICAID, SELFPAY ==
--- OUTSIDE RECORDS SUMMARY | 2025-06-07 09:06 | XMS_ITS | Encounter Summary ---
Author Organization [facility] Address [address] [place] [address] Care Team Providers Care Dry Cans Operator Name Role Phone Clemencia Nash HANNA Primary Care Provider [phone] Reason for Referral * Consultation (Urgent) - Closed Specialty Diagnoses / Procedures Referred By Lora hernandes Referred To Contact Dental Stamping Die Maker / Dentistry Diagnoses Pain, dental Jenise Zendejas APRN [address] [place] [address] Phone: tel: fax: [facility] [address] [place] [address] Phone: tel: Referral ID Status Reason Start Date Expiration Date V isits Requested Visits Authorized [id number] Closed Specialty Services Required 06/07/2025 12/07/2026 1 1 Reason for Visit * Reason Comments Dental Pain Encounter Details Date Type Department Care Team (Late st Contact Info) Description 06/07/2025 10:06 AM EDT - 06/07/2025 12:40 PM EDT Emergency [facility] Emergency Department [address] [place] [address] Wesley Jones MD [address] [place] [address] Pain, dental (Primary Dx) Discharge Disposition: Home or Self Care Social History Tobacco Use Types Packs/Day Years [...] on file documented as of this encounter Last Filed Vital Signs Vital Sign Reading Time Taken Comments Blood Pressure 160/109 06/07/2025 12:33 PM EDT HANNA Zendejas notified Pulse 87 06/07/2025 12:33 PM EDT Temperature 36.6 C (97.9 F) 06/07/2025 12:33 PM EDT Respiratory Rate 16 06/07/2025 12:3 3 PM EDT Oxygen Saturation 97% 06/07/2025 12: 33 PM EDT Inhaled Oxygen Concentration - - Weight 77.1 kg (170 lb) 06/07/2025 9:53 AM EDT Height 162.6 cm (5' 4 ) 06/07/2025 9:53 AM EDT Body Mass Index 29.18 06/07/2025 9:53 AM EDT documented in this encounter Functional Status * Calculated C-SSRS Risk Score (Lifetime/Recent) Answer Date of Assessment Author No Risk Indicated 06/07/2025 10:11 AM EDT Jacqui Barrios RN * Question Answer Date of Assessment Author 1. Wish to be (Past 1 Month) No 06/07/2025 10:11 AM EDT Alexandria Barrios RN 2. Non-Specific Active Suicidal Thoughts (Past 1 Month) No 06/07/2025 10:11 AM EDT Alexandria Barrios RN 6. Suicidal Behavior (Lifetime) No 06/07/2025 10:11 AM EDT Alexandria Barrios RN documented as of this encounter Discharge Instructions * Discharge Instructions* Jenise Zendejas APRN - 06/07/2025 12:23 PM EDT Take all your augmentin until antibiotic is finished, may take oxycodone as directed as needed for pain and ondansetron as directed as needed for nausea and vomiting. You were given information regarding walk-in clinic for dentistry as well as urgent referral to dental clinic submitted, they should contact you in 2-3 business days but if you do not hear from them please call them at the phone number provided. If you have any new or worsening symptoms please return to the emergency department. documented in this encounter Medications at Time of Discharge desvenlafaxine (Pristiq) 50 MG 24 hr tablet Take 1 tablet (50 mg) by mouth 1 (one) time each day. 04/02/2023 nitrofurantoin (Macrodantin) 100 MG capsule TAKE ONE CAPSULE BY MOUTH AT BEDTIME FOR 30 DAYS; MUST BE TAKEN WITH MEAL/FOOD 04/27/2024 ondansetron ODT (Zofran-ODT) 4 MG disintegrating tablet Dissolve 1 tablet on the tongue every 8 hours as needed for nausea for up to 4 days. 12 tablet 06/07/2025 5 oxyCODONE (Roxicodone) 5 MG immediate release tablet Take 1 tablet by mouth every 6 hours as needed (pain) for up to 2 days. 8 tablet 06/07/2025 5 documented as of this encounter Miscellaneous Notes * ED Provider Notes - Jenise Zendejas APRN - 06/07/2025 9:47 AM EDT Images from the original note were not included. - HPI Chief Complaint Patient presents with Dental Pain Shahla Craig is a 29 y.o. female who presents to the ED with dental pain. Pt c/o L lower dental pain for the past few days. Pt reports she has dentist but is unable to see them until June.She reports she is on antibiotics with minimal relief. Pt reports she has tried to take ibuprofen with no relief. Pt denies fever, chills, SOA, headache, N/V/D. History provided by: Patient director speech and hearing used: No Patient History Past Medical History[1] Surgical History[2] Family History[3] Social History[4] Allergies: Allergies[5] Physical Exam ED Triage Vitals [06/07/25 0953] Temp Heart Rate Resp BP 36.7 ??C (98 ??F) 88 16 (!) 145/111 SpO2 Temp Source Heart Rate Source Patient Position 98 % Oral -- -- BP Location FiO2 (%) -- -- Physical Exam Vitals and nursing note reviewed. Constitutional: General: She is not in acute distress. Appearance: Normal appearance. HENT: Head: Normocephalic. Comments: No facial swelling Right Ear: External ear normal. Left Ear: External ear normal. Nose: Nose normal. No rhinorrhea. Mouth/Throat: Mouth: Mucous membranes are moist. Pharynx: Oropharynx is clear. Comments: Eroded down to gum line Mild erythema No signs of abscess No trismus No facial swelling Eyes: Extraocular Movements: Extraocular movements intact. Conjunctiva/sclera: Conjunctivae normal. Pupils: Pupils are equal, round, and reactive to light. Cardiovascular: Rate and Rhythm: Normal rate and regular rhythm. Heart sounds: Normal heart sounds. Pulmonary: Effort: Pulmonary effort is normal. No respiratory distress. Breath sounds: Normal breath sounds and air entry. Comments: Speaking full sentences. Symmetric chest rise Abdominal: General: Abdomen is flat. There is no distension. Musculoskeletal: General: No deformity. Normal range of motion. Cervical back: Normal range of motion and neck supple. Comments: Atraumatic, moves all extremities spontaneously Skin: General: Skin is warm and dry. Capillary Refill: Capillary refill takes less than 2 seconds. Coloration: Skin is not jaundiced or pale. Neurological: General: No focal deficit present. Mental Status: She is alert and oriented to person, place, and time. Mental status is at baseline. Comments: Awake Psychiatric: Mood and Affect: Mood normal. Behavior: Behavior normal. No data recorded ED Course & MDM - Patient seen in PIT by Dr. Jones, care assumed by Larisa Zendejas APRN Assessment: 29 y.o. female presents to ED with complaint of left lower dental pain. It should be noted that thechronic conditions includes no significant PMH per patient Differential Diagnosis: dental abscess, dental fracture, dental caries, ludwigs angina In order to fully explore the differential diagnosis the following treatments and tests were ordered: ED Medication Administration from 06/07/2025 0947 to 06/07/2025 1259 Date/Time Order Dose Route Action 06/07/2025 1024 EDT oxyCODONE (Roxicodone) immediate release tablet 5 mg 5 mg Oral Given All Other Orders Ordered Status Ordering Provider 06/07/25 1006 XR Panorex Once Final result WESLEY JONES 06/07/25 1223 Discharge Ambulatory referral to Dentistry Ordered JENISE ZENDEJAS Clinical Impressions as of 06/07/25 1259 Pain, dental Social Determinates of Health Risks (including Economic Stability, Education and level of understanding, Healthcare access and quality and concerning social factors): None identified on this visit Patient started Augmentin yesterday, prescribed by her PCP. She was given oxycodone 5 mg tablet 1 dose in the ED and reports significant improvement in dental pain. No trismus noted, no evidence of Eric's angina on exam. Patient speaking in full sentences, tolerating oral fluids without difficulty. Her Panorex x-ray showed no evidence of periapical abscess, she was given information for dental walk-in clinic as well as urgent referral provided for dental clinic and she and her will call to make an appointment verses go to walk-in clinic next business day. She was provided strict return precautions, and aware if she has any new or worsening symptoms to please return to the ED Last PDMP Review: Wesley Jones MD on 06/07/2025 11:54 AM Ultimately, this patient was Was discharged Home (Discharge) The encounter diagnosis was Pain, dental. . Patient was counseled on the diagnoses. Discharge medications if any are listed below. Listed medications are thought be either curative for listed diagnoses or will help control ongoing symptoms. Patient is requested to follow up with Dentistry in order to obtain routine follow-up. Instructions on follow up as well as precautions to return to the ER provided verbally by the EM provider, as well as written in patients discharge education packet. ED Prescriptions Medication Sig Dispense Start Date End Date Auth. Provider oxyCODONE (Roxicodone) 5 MG immediate release tablet Take 1 tablet by mouth every 6 hours as needed(pain) for up to 2 days. 8 tablet 06/07/2025 06/09/2025 Wesley Jones MD ondansetron ODT (Zofran-ODT) 4 MG disintegrating tablet Dissolve 1 tablet on the tongue every 8 hours as needed for nausea for up to 4 days. 12 tablet 06/07/2025 06/11/2025 Jenise Zendejas APRN Discharge Instructions Take all your augmentin until antibiotic is finished, may take oxycodone as directed as needed for pain and ondansetron as directed as needed for nausea and vomiting. You were given information regarding walk-in clinic for dentistry as well as urgent referral to dental clinic submitted, they should contact you in 2-3 business days but if you do not hear from them please call them at the phone number provided. If you have any new or worsening symptoms please return to the emergency department. Disposition Discharge To home AVS ([facility] Snapshot) - Printed 06/07/2025 Follow-Ups Follow up with [facility] (Dentistry) Follow up with Clemencia Nash APRN Discharge Orders Discharge Ambulatory referral to Dentistry Authorized - Date/Time: 06/07/2025/10:06AM Entered by Oanh Terry, acting as scribe for Welsey Jones MD. Scribe Attestation: This note was dictated to me, Oanh Terry, acting as a scribe for Wesley Jones MD. Attending Attestation: The documentation was recorded by Oanh Terry acting as scribe in my presence at the time of the encounter and accurately reflects the service I personally performed. [1] Past Medical History: Diagnosis Date Hypertension Sinusitis 05/03/24 UTI (urinary tract infection) 05/03/24 Viral upper respiratory illness 05/03/24 [2] Past Surgical History: Procedure Laterality Date APPENDECTOMY CHOLECYSTECTOMY [3] No family history on file. [4] Tobacco Use Smoking status: Never Passive exposure: Never Smokeless tobacco: Never Vaping Use Vaping status: Every Day Start date: 08/15/2019 [5] No Known Allergies Jenise Zendejas APRN 06/07/25 1259 Cosigned by Wesley Jones MD at 06/10/2025 7:42 PM EDT Associated attestation - Wesley Jones MD - 06/10/2025 7:42 PM EDT I attest to being involved in providing substantive part of the medical decision making in patient care. * ED Triage Notes - Barbara Frederick RN - 06/07/2025 9:47 AM EDT Pt states she has had left lower dental pain for the past few days. documented in this encounter Plan of Treatment Scheduled Referrals Name Type Priority Associated Diagnoses Order Schedule Discharge Ambulatory referral to Dentistry Outpatient Referral Routine Pain, dental Expected: 06/07/2025 (Approximate), Expires: 12/09/2026 documented as of this encounter Procedures Procedure Name Priority Date/Time Associated Diagnosis Comments XR PANOREX STAT 06/07/2025 11:08 AM EDT documented in this encounter Results * XR Panorex (06/07/2025 11:08 AM EDT) Anatomical Region Laterality Modality Jaw region Panoramic X-Ray Impressions 06/07/2025 11:52 AM EDT No periapical abscess. CRITICAL RESULT: No. COMMUNICATION: Per this written report. Preliminary report signed by Duong Patterson D.O. on 06/07/2025 11:18 AM By electronically signing this report, I, the attending physician, attest that I have personally reviewed the images/data for the above examination(s) and agree with the final edited report. Drafted by Duong Patterson D.O. on 06/07/2025 11:13 AM Final report signed by Aurora Weller MD on 06/07/2025 11:52 AM Narrative 06/07/2025 11:52 AM EDT CLINICAL INDICATION: dental pain TECHNIQUE: XR PANOREX COMPARISON: None. FINDINGS: Dental amalgam noted. No definite periapical lucencies. There are few prior root canals. No obvious dental caries. Procedure Note Aurora Weller MD - 06/07/2025 CLINICAL INDICATION: dental pain TECHNIQUE: XR PANOREX COMPARISON: None. FINDINGS: Dental amalgam noted. No definite periapical lucencies. There are fewprior root canals. No obvious dental caries. IMPRESSION: No periapical abscess. CRITICAL RESULT: No. COMMUNICATION: Per this written report. Preliminary report signed by Duong Patterson D.O. on 06/07/2025 11:18 AM By electronically signing this report, I, the attending physician, attestthat I have personally reviewed the images/data for the aboveexamination(s) and agree with the final edited report. Drafted by Duong Patterson D.O. on 06/07/2025 11:13 AM Final report signed by Aurora Weller MD on 06/07/2025 11:52 AM Wesley Jones MD IMG XR PROCEDURES Final Result documented in this encounter Visit Diagnoses Diagnosis Pain, dental- Primary documented in this encounter Administered Medications Inactive Administered Medications - up to 3 most recent administrations Medication Order MAR Action Action Date Dose Rate Site oxyCODONE (Roxicodone) immediate release tablet 5 mg 5 mg, Oral, Once, 1 dose, On Tue06/07/25 at 1020, STAT Given 06/07/2025 10:24 AM EDT 5 mg documented in this encounter Active and Recently Administered Medications Times are shown in EDT. Scheduled Medication Order 06/05/2025 06/06/2025 06/07/2025 oxyCODONE (Roxicodone) immediate release tablet 5 mg (COMPLETED) 5 mg, Oral, Once, 1 dose, On Tue06/07/25 at 1020, STAT 1024 (Given - Provid er: Jacqui Barrios RN) documented in this encounter Additional Health Concerns Assessment Noted Time A fall risk assessment has been complete d for the patient 05/03/2024 10:57 AM EDT A Body Mass Index follow-up plan has been documented for the patient 05/31/2024 1:05 AM EDT documented as of this encounter Care Teams Dry Cans Operator Relationship Specialty Start Date End Date Clemencia Nash APRN [address] [facility] [address] [place] [address] PCP - General 03/10/23 documented as of this encounter
[2025-07-25 22:56] VITALS: BP 156/97; PULSE 90; RESP 16; TEMP 37.1; O2SAT 97; BMI 29.2
--- OUTSIDE RECORDS SUMMARY | 2025-07-25 23:00 | XMS_ITS | Encounter Summary ---
Author Organization [facility] Address [address] [place] [address] Care Team Providers Care Superintendent Service Name Role Phone Clemencia Nash HANNA Primary Care Provider [phone] Reason for Referral * Consultation (Routine) - Closed Specialty Diagnoses / Procedures Referred By Lora hernandes Referred To Contact Gastroenterology Diagnoses Family history of endocrine and metabolic disease Isabel Palma APRN [address] [address] Phone: tel: fax: Referral ID Status Reason Start Date Expiration Date V isits Requested Visits Authorized [id number] Closed Specialty Services Required 03/27/2024 09/26/2025 1 1 Encounter Details Date Type Department Care Team (Late st Contact Info) Description 03/27/2024 Community [facility] [address] [place] [address] Isabel Palma APRN [address] [address] Family history of endocrine and [...] documented as of this encounter Care Teams Superintendent Service Relationship Specialty Start Date End Date Clemencia Nash APRN [facility] [place] [address] PCP - General 03/10/23 documented as of this encounter
--- OUTSIDE RECORDS SUMMARY | 2025-07-25 23:00 | XMS_ITS | Clinical Summary ---
Author Organization Healthcare Address [address] [place] [address] Care Team Providers Care Time Study Technologist Name Role Phone Clemencia Nash HANNA Primary Care Provider [phone] Allergies No known active allergies Medications desvenlafaxine (Pristiq) 50 MG 24 hr tablet Take 1 tablet (50 mg) by mouth 1 (one) time each day. 04/02/2023 Active nitrofurantoin (Macrodantin) 100 MG capsule TAKE ONE CAPSULE BY MOUTH AT BEDTIME FOR 30 DAYS; MUST BE TAKEN WITH MEAL/FOOD 04/27/2024 Active Active Problems Problem Noted Date Diagnosed Date Viral syndrome 05/03/2024 Vaginal yeast infection 05/03/2024 Vaginal delivery 05/03/2024 Vaginal bleeding affecting early 05/03 Threatened 05/03/2024 Strep throat 05/03/2024 SAB (spontaneous ) 05/03/2024 Pre-eclampsia, mild 05/03/2024 depression 05/03/2024 Polycystic ovaries 05/03/2024 Pelvic pain in female 05/03/2024 PCB (post coital bleeding) 05/03/2024 Pain, dental 05/03/2024 Obstructed fallopian tubes 05/03/2024 Nausea and vomiting during 05/03/2024 Hypertension affecting 05/03/2024 Hemorrhoids during 05/03/2024 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 Endometriosis determined by laparoscopy 05/03/20 Dyspareunia, female 05/03/2024 Decreased libido 05/03/2024 Conjunctivitis 05/03/2024 Anemia due to acute blood loss 05/03/2024 Ureteritis 05/03/2024 Abnormal uterine bleeding 05/03/2024 Resolved Problems Problem Noted Date Diagnosed Date Resolved Date Viral upper respiratory illness 05/03/2024 05/05/2025 UTI (urinary tract infection) 05/03/2024 05/05/2025 Sinusitis 05/03/2024 05/05/2025 Close exposure to COVID-19 virus 05/03/2024 05/05/2025 Encounters Date Type Department Care Team Description 06/07/2025 10:06 AM EDT - 06/07/2025 12:40 PM EDT Emergency [facility] Emergency Department [address] [place] [phone] Wesley Jones MD Pain, dental (Primary Dx) Discharge Disposition: Home or Self Care 06/07/2025 Travel from Last 3 Months Immunizations Immunization Administration Dates Next Due Influenza, [...] Mass Index 29.18 06/07/2025 9:53 AM EDT Plan of Treatment Health Maintenance Due Date Last Done Comments [facility]-HIV Screening 1995 [facility]-Hepatitis C Screening 1995 [facility]-/Child/Adol SDOH Screenings 1995 [facility]-Varicella Vaccines (1 of 2 - 13+ 2-dose series) 2008 [facility]- SDOH Screenings 2013 [facility]-Adult SDOH Screenings 2013 [facility]-Hepatitis B Vaccines (1 of 3 - 19+ 3-dose series) 2014 [facility]-Pap Smear 2016 HPV Vaccines (1 - 3-dose SCDM series) 2022 [id number]-61 Vaccine (3 - 2024- season) 2025 02/20/2021, 01/30/2021 [facility]-Influenza Vaccine (#1) 04/15/202505/18, 05/31/2022, 05/07/2020, Additional history exists [facility]-Depression Screening 05/03/2025 05/03/2024 [facility]-DTaP,Tdap,and Td Vaccines (3 - Td or Tdap) 03/07/2035 03/07/2025, 01/04/2018 [facility]-Zoster Vaccines (1 of 2) 2045 [facility]-Obesity Intervention Completed 024, 05/03/2024, 05/09/2023 [facility]-HIB Vaccines Aged Out No longer e ligible based on patient's age to complete this topic [facility]-Hepatitis A Vaccines Aged Out No longer eligible based on [...] on patient's age to complete this topic Procedures Procedure Name Priority Date/Time Associated Diagnosis Comments XR PANOREX STAT 06/07/2025 11:08 AM EDT from Last 3 Months Results * XR Panorex (06/07/2025 11:08 AM [...] Jones MD IMG XR PROCEDURES Final Result from Last 3 Months Insurance [facility] MEDICAID [place] Care Teams Time Study Technologist Relationship Specialty Start Date End Date Clemencia Nash APRN [address] [facility] [address] [place] [address] PCP - General 03/10/23
--- OUTSIDE RECORDS SUMMARY | 2025-07-25 23:00 | XMS_ITS | Data Portability ---
Author Organization [facility] Address [address] [facility] [address] [place] [address] Care Team Providers Care Medical Driver Name Role Phone PAUL CELIS Trim Die Maker [phone] Assessment Encounter Date Assessment Date Assessment LastModified by Organization Details LastModified Time 01/08/2022 01/08/2022 In regards to he r left wrist, her previous de Quervain's tenosynovitis symptoms have resolved following injection. Should symptoms recur we would discuss either repeat injection versus surgery at that time. Plan to continue to monitor for now. In regards to her right wrist, previous MRI demonstrated mild thickening of the first dorsal compartment tendons consistent with diagnosis of de Quervain's tenosynovitis. Symptoms have now persisted/recurre d despite two previous corticosteroid injections, thumb spica splinting, ongoing therapy, and work restrictions. That she has failed conservative treatment and elected to move forward with definitive surgical management at this time. She also has concurrent symptoms consistent with EMG/NCV negative carpal tunnel syndrome. This is further supported by her complete temporary symptom relief for 2 weeks following carpal tunnel injection at last visit. Symptoms have persisted again despite ongoing conservative treatment with therapy, wrist splinting/bracing , and restrictions. She would like to move forward with concurrent carpal tunnel release at the time of surgery as well to address all pathology in her hand/wrist. She will be maintained on work restrictions pending surgery. Patient will be scheduled for right first dorsal compartment release and right endoscopic carpal tunnel release pending Worker's Compensation approval. Risk and benefits of the surgical procedure were explained to the patient in clinic today, including but not limited to incomplete symptom relief, recurrence, need for additional procedures, stiffness, damage to surrounding tissues/structure s/nerves/vessels, wound complications, and infection. Patient expressed understanding and all questions were answered to the patient's satisfaction. [email or web address] Not available 01/08/2022 11:28:41 02/09/2022 02/09/2022 In regards to he r right wrist, patient will continue OT/HEP and can gradually resume light activity with the hand as tolerated at this time. Continue 5lb weight restriction until 4 weeks post op. Work restrictions provided. I discussed scar massage with patient in clinic today. Patient will follow-up in 4 weeks for recheck, but will call in the interim with any additional questions or concerns. In regards to her left wrist, her previous de Quervain's tenosynovitis symptoms have resolved following injection. Should symptoms recur we would discuss either repeat injection versus surgery at that time. Plan to continue to monitor for now. RTO as scheduled or sooner if needed, advised to call office with any questions/concern jose r [email or web address] Not available 02/12/2022 23:43:57 03/09/2022 03/09/2022 Patient will continue restrictions for the next two weeks to allow for further recovery and progression with therapy. She will then be cleared for return to work without restrictions on 03/22/22 to begin work conditioning/hard ening followed by re-entry. She will follow up in 6 weeks for repeat assessment, plan to declare her MMI if doing well at that time. [email or web address] Not available 03/11/2022 09:22:37 04/29/2022 04/29/2022 Patient can continue working without restrictions and continue advancing back to work through the reentry process. Patient can continue home therapy exercises, scar massage, and kiir-uxs-kcjortr anti-inflammatory medication as needed. She has now reached MMI for her right hand/wrist. Left de Quervain's tenosynovitis symptoms currently resolved, however, should symptoms recur over time she will contact my office to be seen for further treatment. Patient will follow up in clinic on an as-needed basis should additional questions or concerns arise. [email or web address] Not available 04/29/2022 09:25:26 Plan of Treatment Reminders Order Date Submit Date Provider Last Modified By Organization Details Last Modified Time Details Appointments None record ed. Lab None record ed. Referral None record ed. Procedures None record ed. Surgeries None record ed. Imaging None record ed. Medication Orders None record ed. Patient TargetsNo targets recorded. Patient InstructionsNo instructions recorded. Reason for Referral None Reported. Problems No Known Problems Procedures Surgical History Date Name Laterality Status Provider Name and Address Organization Details Recorded Time 2 Op Note completed RENETTA DUGGAN MD [address] [place] [address], [phone], [facility] 01/27/2022 13:49:47 2 Injection - Tendon Sheath/Ligamen t completed RENETTA DUGGAN MD [address] [place] [address], [phone], [facility] 11/19/2021 12:54:34 2 Injection - Carpal Tunnel completed RENETTA DUGGAN MD [address] [place] [address], [phone], [facility] 11/19/2021 12:54:39 2 Injection - Tendon Sheath/Ligamen t completed RENETTA DUGGAN MD [address] [place] [address], [phone], [facility] 10/29/2021 16:31:09 2 Injection - Tendon Sheath/Ligamen t completed RENETTA DUGGAN MD [address] [place] [address], [address], [facility] 10/15/2021 17:27:29 Imaging Results None recorded. Procedure Notes None recorded. Medical Equipment None Reported. Allergies No known drug allergies Medications Name Sig Start Date Stop Date Status Note LastModified by Organization Details LastModified Time tramadol 50 mg tablet TAKE 1 TABL PO Q 4-6 HRS PRN FOR SEVERE POST SURGICAL PAIN 02/09 completed Not Available Not Available Not Available meloxicam 7.5 mg tablet TAKE 1 TABLE PO QD WITH FOOD REGARDLESS OF PAIN LEVEL FOR 1 WEEK. THEN TAKE 1 TABLET PO QD ONLY PRN FOR PAIN RELIEF THEREAFTER 02/09 completed Not Available Not Available Not Available Neurontin 100 mg capsule TAKE 1 CAPSULE PO QHS FOR 1 WEEK 02/09 completed Not Available Not Available Not Available Valtrex 11/19 completed Not Available Not Available Not Available Vitals Date Recorded Body height Body mass index (BMI) Body weight Provider Name and Address Organization Details Last Updated DateTime 01/08/2022 162.56 cm 26.6 kg/m2 32134.82 g Mandy [facility] 01/08/2022 10:50:06 Date Recorded Body height Body mass index (BMI) Body weight Provider Name and Address Organization Details Last Updated DateTime 02/09/2022 162.56 cm 26.6 kg/m2 12861.82 g Nestor [facility] 02/09/2022 10:47:52 Date Recorded Body height Body mass index (BMI) Body weight Provider Name and Address Organization Details Last Updated DateTime 03/09/2022 162.56 cm 26.6 kg/m2 89732.82 g Mandy [facility] 03/09/2022 11:16:47 Date Recorded Body height Body mass index (BMI) Body weight Provider Name and Address Organization Details Last Updated DateTime 04/29/2022 162.56 cm 26.6 kg/m2 30673.82 g Harrison [facility] 04/29/2022 09:08:43 Social History None recorded. Functional Status Question Answer Note LastModified by Organizat ion Details LastModified Time Do you or have you ever used any other forms of tobacco or nicotine? Yes [email or web address] Information not available 10/15/2021 Do you or have you ever used e-cigarettes or vape? Current user of electronic cigarettes [email or web address] Information not available 10/15/2021 Mental Status None recorded. Family History Nothing Reported. Medical History Condition Response Diabetes N Bleeding Disorder N Arthritis N Blood Thinners N Kidney Stones N Heart Conditions N Sleep Apnea N Liver Disease N Asthma N Kidney Disease N Gynecological HistoryNo gynecological history recorded. Obstetrics History GPAL:G 0 P 0 0 0 0 Past Encounters Encounter ID Performer Location Encounter Start Date Encounter Closed Date Diagnosis/Indication Diagnosis SNOMED-CT Code Diagnosis ICD10 Code Diagnosis IMO Codes Diagnosis Note [id number] RENETTA DUGGAN MD [facility] [address] [place] [address] 10/15/2021 15:31:54 10/16/2021 08:41:29 Radial styloid tenosynovitis 15668781 M65.4 Right de Quervain's tenosynovi tis Carpal edin magaly syndrome 85832856 G56.01 Possible early right carpal tunnel syndrome EMG/NCV (10/15/2021) was normal. [id number] RENETTA DUGGAN MD [facility] [address] [place] [address] 10/29/2021 15:29:30 10/29/2021 16:16:35 Radial styloid tenosynovitis 72076631 M65.4 - Right de Quervain's tenosynovi tis (CSI: 10/15/2021)- Left de Quervain's tenosynovi tis (CSI: 10/29/2021) Carpal edin magaly syndrome 50307196 G56.01 Possible early right carpal tunnel syndrome EMG/NCV (10/15/2021) was normal. [id number] RENETTA DUGGAN MD [facility] [address] [place] [address] 11/19/2021 10:04:36 11/19/2021 11:20:54 Radial styloid tenosynovitis 94278178 M65.4 - Right de Quervain's tenosynovi tis (CSI: 11/19/2021; 10/15/2021)- Left de Quervain's tenosynovi tis (CSI: 10/29/2021) - currently minimally symptomati c MRI of the right wrist (11/18/2021) revealed mild thickening of the first dorsal compartmen t tendons, but no significan t associated edema. No additional pathology noted along the radial aspect of the wrist. Incidental ly noted was dorsal subluxatio n of the ulna relative to the radius, which may be positional . Carpal edin magaly syndrome 38444775 G56.01 Right carpal tunnel CSI: 11/19/2021 EMG/NCV (10/15/2021) was normal. [id number] RENETTA DUGGAN MD ORTHOPEDI [address] [place] [address] 01/08/2022 10:14:12 01/08/2022 11:36:40 Radial styloid tenosynovitis 80181764 M65.4 - Right de Quervain's tenosynovi tis (CSI: 11/19/2021; 10/15/2021)- Left de Quervain's tenosynovi tis (CSI: 10/29/2021) - currently resolved MRI of the right wrist (11/18/2021) revealed mild thickening of the first dorsal compartmen t tendons, but no significan t associated edema. No additional pathology noted along the radial aspect of the wrist. Incidental ly noted was dorsal subluxatio n of the ulna relative to the radius, which may be positional . Carpal edin magaly syndrome 67227320 G56.01 Right carpal tunnel CSI: 11/19/2021 EMG/NCV (10/15/2021) was normal. [id number] RENETTA DUGGAN MD SURGERY SCHEDULE [address] [place] [address] 01/27/2022 09:18:28 01/27/2022 09:20:16 [id number] NUHA THURMAN PA-C [facility] [address] [place] [address] 02/09/2022 10:37:35 02/09/2022 11:19:37 Postoperative care 847580166 Z48.89 s/p Right endoscopic carpal tunnel release; Right first dorsal compartmen t release (DOS: 01/27/22) [id number] RENETTA DUGGAN MD [facility] [address] [address] 03/09/2022 10:03:34 03/09/2022 12:05:17 Postoperative care 500779110 Z48.89 6 weeks s/p Right endoscopic carpal tunnel release; Right first dorsal compartmen t release (DOS: 01/27/22) Radial sty loid tenosynovitis 94835678 M65.4 - Left de Quervain's tenosynovi tis (CSI: 10/29/2021) - currently resolved Previously s/p Right endoscopic carpal tunnel release; Right first dorsal compartmen t release (DOS: 01/27/22) [id number] RENETTA DUGGAN MD [facility] [address] [place] [address] 04/29/2022 09:04:12 04/29/2022 09:25:12 Postoperative care 286956503 Z48.89 3 months s/p Right endoscopic carpal tunnel release; Right first dorsal compartmen t release (DOS: 01/27/22) Radial sty loid tenosynovitis 82133400 M65.4 - Left de Quervain's tenosynovi tis (CSI: 10/29/2021) - currently resolved Previously s/p Right endoscopic carpal tunnel release; Right first dorsal compartmen t release (DOS: 01/27/22) Health Concerns Section Related Observation LastModified by Organization Detai ls LastModified Time None Recorded Concern Status LastModified by Organization Details LastModified Time None Recorded Advance Directives Directive None Recorded Payers Insurance Date Sequence Insurance Name Policy Number Policy Kasper Covered Member ID Kasper Member ID Guarantor Name 10/15/2021 [facility] Chanel Craig Notes Date Note Type Note Provider Name and Address Organization Details Recorded Time 2 text/html Patient reports that she is continuing to do well in regards to her previous left de Quervain's tenosynovitis symptoms as these remain completely resolved following previous injection. In regards to her right wrist, she reports 1 week of symptom relief for her right de Quervain's tenosynovitis following repeat first dorsal compartment injection at last visit, however now with recurrent symptoms back to baseline. In regards to her numbness and tingling, she reports complete symptom relief for 2 weeks following carpal tunnel injection at last visit. Now with mild recurrent symptoms predominantly in the thumb and index finger (carpal tunnel distribution on a Cortez diagram), but occasionally more diffuse in the hand. She is currently noticing symptoms most prominently when she wakes up in the morning, but occasionally with increased use of the hand during the day. States that she has to shake out her hand occasionally for symptom relief (positive flick sign). She continues to work with therapy and continues ongoing thumb spica/wrist splinting. She remains on work restrictions at this time. In summary, she is a 26-year-old zmgi-kpby-jysaslkp female who works at [employer]. She is being followed as a Worker's Compensation consultation for evaluation of bilateral hand/wrist symptoms. 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 She was put on rest for 2 weeks and was doing better, but then with recurrent symptoms after return to work. Treatment at initial visit had consisted of prescription anti-inflammatory medication, bracing, therapy, and she is now currently off work. She also reports intermittent numbness and tingling in the hands as well. She did have a recent EMG/NCV study, which was normal. At initial visit she underwent right first dorsal compartment injection with brief temporary relief. She has now undergone a repeat first dorsal compartment injection, again with brief temporary relief and subsequent recurrence. She also has undergone a carpal tunnel injection, with complete temporary relief, but with recurrent symptoms as well. Primary Care Physician: Dr Cedric Downs Hand dominance: LeftLocation: Bilateral Hand Pain level RIght hand : Date of injury: 05/21/21Duration: 7 month(s) Recent Surgery: NoProcedure:Date of surgery:Duration: In office procedure? No Previous upper extremity surgery? NoProcedure:Approximate date of surgery:Surgeon (if known):Currently employed?: Full timeEmployer: [employer]Occupation:[employer] Are they currently working? Yes Is this injury associated with a Workers Compensation claim? 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 Craig arrives today for recheck. She states that the n/t sensation has progressed since last visit. She states that the tightness has not changed much since. She states that she experiences a lot of pain at night when she overworks the right hand specifically. RENETTA DUGGAN MD [address] [place], [address], [facility] 01/08/2022 11:28:52 2 text/html Patient presents today for post op follow up visit. Reports uneventful post op period. POST OP GLOBAL VISIT DATE OF SURGERY: 01-27-2022 TIME POST SURGERY:10-14 DAYS SURGERY: -Right endoscopic carpal tunnel release-Right first dorsal compartment release INTERVAL HISTORY: PREOP SYMPTOMSBETTER PAIN LEVEL (VAS)0/10 OVERALL ASSESSMENTIMPROVING NEW SYMPTOMS OR QUESTIONS: Uneventful post op period. NUHA THURMAN PA-C [address] [place], [address], [facility] 02/12/2022 23:45:06 2 text/html Patient reports further improvement in symptoms. Numbness/tingling completely resolved. Still with some sorness in the palm and wrist. Therapy is going well. POST OP GLOBAL VISIT DATE OF SURGERY: 01-27-2022 TIME POST SURGERY:6 WKS SURGERY: -Right endoscopic carpal tunnel release-Right first dorsal compartment release INTERVAL HISTORY: PREOP SYMPTOMSBETTER PAIN LEVEL (VAS)3/10 OVERALL ASSESSMENTIMPROVING NEW SYMPTOMS OR QUESTIONS: She states that she is doing well, some mild pain and discomfort. RENETTA DUGGAN MD [address] [place] [address], [address], [facility] 03/11/2022 09:25:12 2 text/html Patient reports she is doing well at this time with only mild soreness with the return to work reentry process, but states this continues to improve. Numbness/tingling remain completely resolved. She does report one episode of temporary pain in her left wrist during work, but this quickly resolved and she has not had any other problems since. POST OP GLOBAL VISIT DATE OF SURGERY: 01-27-2022 TIME POST SURGERY:13 weeks SURGERY:-Right endoscopic carpal tunnel release-Right first dorsal compartment release INTERVAL HISTORY: PREOP SYMPTOMSBETTER PAIN LEVEL (VAS)2/10 OVERALL ASSESSMENTIMPROVING NEW SYMPTOMS OR QUESTIONS: She states that she is doing well, some mild soreness and discomfort since returning to work. Is working hour on, hour off restrictions at work. Has returned to work with restrictions. RENETTA DUGGAN MD [address] [place] [address] [place], [address], [facility] 04/29/2022 09:25:30 OBGyn Episode No OBEpisode recorded.
--- OUTSIDE RECORDS SUMMARY | 2025-07-25 23:00 | XMS_ITS | Encounter Summary ---
Author Organization [facility] Address [address] [place] [address] Care Team Providers Care Sales Operations Coordinator Name Role Phone Clemencia Nash HANNA Primary Care Provider [phone] Encounter Details Date Type Department Care Team (Latest Contact Info) Description 06/07/2025 Travel Social History Tobacco Use Types Packs/Day Years [...] on file documented as of this encounter Functional Status * Calculated C-SSRS Risk Score (Lifetime/Recent) Answer Date of Assessment Author No Risk Indicated 06/07/2025 10:11 AM EDT Jacqui Barrios RN * Question Answer Date of Assessment Author 1. Wish to be (Past 1 Month) No 06/07/2025 10:11 AM RAMÍREZT Alexandria Barrios RN 2. Non-Specific Active Suicidal Thoughts (Past 1 Month) No 06/07/2025 10:11 AM EDT Alexandria Barrios RN 6. Suicidal Behavior (Lifetime) No 06/07/2025 10:11 AM RAMÍREZT Denis, Alexandria n E, RN documented as of this encounter Plan of Treatment Not on file documented as of this encounter Visit Diagnoses Not on filedocumented in this encounter Additional Health Concerns Assessment Noted Time A fall risk assessment has been complete d for the patient 05/03/2024 10:57 AM EDT A Body Mass Index follow-up plan has been documented for the patient 05/31/2024 1:05 AM EDT documented as of this encounter Care Teams Sales Operations Coordinator Relationship Specialty Start Date End Date Clemencia Nash APRN [address] [place] [address] PCP - General 03/10/23 documented as of this encounter
--- OUTSIDE RECORDS SUMMARY | 2025-07-25 23:00 | XMS_ITS | Clinical Summary ---
Author Organization [facility] Address [address] [place] [address] Phone [email or web address] Care Team Providers Care Roll Grinder Operator Name Role Phone Provider, No Primary Care [...] Screening Combo 1995 Dental Cleaning/Exam 1995 HPV only / HPV + Pap 1995 Pap only testing 1995 HPV Immunization (1 - 2-dose series) 2006 Hepatitis B Immunization (1 of 3 - 19+ 3-dose series) 2014 Covid-19 Immunization ( - season) 2025 Influenza Immunization (#1) 04/15/202504/16, 05/16/2019 Tetanus Diphtheria and Pertussis Immunization (2 - Td or Tdap) 01/05/2028 01/04/2018 HIB Immunization Aged Out No longer e ligible based on patient's age to complete this topic Hepatitis A Immunization Aged Out No longer eligible based on patient's age to complete this topic Pneumococcal Immunization Aged Out No longer eligible based on patient's age to complete this topic Polio Immunization Aged Out No longer eligible based on patient's age to complete this topic Varicella Immunization Aged Out No lo nger eligible based on patient's age to complete this topic Insurance OPT OUT NO COPAY NB Care Teams Roll Grinder Operator Relationship Specialty Start Date End Date Provider, PHILIP Champion [id number] PCP - General Industrial Safety And Health Technician 06/28/19
--- NOTE | 2025-07-25 23:09 | PC.NURSE ---
Dr Varma at bedside
--- NOTE | 2025-07-25 23:17 | HMH.EDGENADL ---
Discharge Plan Disposition Patient Disposition: Home, Self-Care Condition: Good Prescriptions Prescriptions: No Action Classic 28 mg iron- 800 mcg tablet 1 tab PO DAILY Zurzuvae 25 mg capsule 50 mg PO DAILY 14 Days Qty: 28 0RF Rx Instructions: administer with a high fat meal ibuprofen 800 mg tablet 800 mg PO Q8H 5 Days Qty: 30 0RF etonogestrel-ethinyl estradiol [NuvaRing] 0.12-0.015 mg/24 hr ring 1 vag ring vaginal Q4W Rx Instructions: leave in place for 3 weeks of a 4-week cycle etonogestrel-ethinyl estradiol [NuvaRing] 0.12-0.015 mg/24 hr ring 1 vag ring vaginal Q4W Qty: 3 4RF Rx Instructions: leave in place for 3 weeks of a 4-week cycle desvenlafaxine succinate [Pristiq] 50 mg tablet extended release 24 hr 50 mg PO DAILY Qty: 30 2RF Referrals Follow up/Referrals: Isabel Palma APRN [Primary Care Provider, Medical] - See instructions Activity Restrictions/Add. Instructions Additional Instructions/Restrictions: You were evaluated in the ER and are believed to be appropriate for discharge at this time. Use the provided erythromycin ointment. Apply half-inch strip into the right eye 4 times daily for 7 days. Do not wear contacts or put anything else in the eye until fully healed. Please call your primary care doctor and make an appointment for reevaluation of your blood pressure to be completed in the next 1 to 2 days. Return to the ER with any new, worsening, or otherwise concerning symptoms. Clinical Impressions Clinical Impression: Abrasion of cornea, right, Hypertension Print Language Print Language: Pashto Discharge ED Provider: Arely Varma General Adult HPI General Chief complaint: Eye Problems Stated complaint: Foreign Object in Right Eye Time Seen by Provider: 07/25/25 23:01 Mode of Arrival: Ambulatory Source of Information: Patient Description of Symptoms (Recalled from ER Triage Doc. by RN): Pt states she has a foreign body in her right eye. She was sitting on the couch, her dog jumped up in her lap and she felt sudden pain in her eye. Flushed at home with no relief. History of Present Illness HPI narrative: 29-year-old female 3 months presents to the ER with foreign body sensation in the right eye. She states shortly prior to arrival she was sitting on the couch when her dog jumped in her lap and she thought she felt something get in her eye. She and her attempted to flush at home with no relief. She came to the ER for further evaluation. Patient has poor vision and brought her contacts with her. She states her vision is at baseline despite the tearing from the right eye. She does not know what could possibly be in the eye but has the foreign body, scratching sensation. She has not worn her contacts in over a month. She is not a diabetic. She states she has been started on antihypertensive medication by her PCP. She states she had a history of hypertension but was not hypertensive during , hypertension returned after delivery. She denies headache, abdominal pain, easy bleeding or bruising, swelling in the feet or legs, foamy urine, difficulty urinating or decreased urine output. She has no other complaints or concerns besides the foreign body sensation in the right eye. Related Data Home Medications ?Medication ?Instructions ?Recorded ?Confirmed vits no.126-ferrous fum 1 tab PO DAILY 09/21/24 05/27/25 28 mg iron-folic acid 800 mcg tablet (Classic ) etonogestrel 0.12 mg-ethinyl 1 vag ring vaginal Q4W 05/27/25 05/27/25 estradiol 0.015 mg/24 hr vaginal ring (NuvaRing) Previous Rx's ?Medication ?Instructions ?Recorded desvenlafaxine succinate 50 mg 50 mg PO DAILY #30 tabs 04/18/25 tablet,extended release 24 hr (Pristiq) ibuprofen 800 mg tablet 800 mg PO Q8H 5 days #30 tabs 05/07/25 zuranolone 25 mg capsule (Zurzuvae) 50 mg (2 x 25 mg) PO DAILY 14 days 05/07/25 #28 caps etonogestrel 0.12 mg-ethinyl 1 vag ring vaginal Q4W #3 ea 05/27/25 estradiol 0.015 mg/24 hr vaginal ring (NuvaRing) Allergies Allergy/AdvReac Type Severity Reaction Status Date / Time No Known Allergies Allergy Verified 05/27/25 10:16 [facility] Disclaimer: The information contained in this section may have been updated after the patient was seen, as this information can be updated by other users. Medical History Clogged duct, SAB (spontaneous ) Abnormal uterine bleeding Dyspareunia Pelvic pain in female Obstructed fallopian tubes right Endometriosis determined by laparoscopy Polycystic ovaries Positive GBS test History of depression Heartburn during Tobacco use affecting , antepartum Episodic cigarette smoking dependence History of gestational hypertension Renal stone Furuncle Migraine Family history of breast cancer in first degree relative mother diagnosed in her 30's Depression Anxiety Surgical History History of wisdom tooth extraction History of cholecystectomy History of appendectomy Family History Mother Cancer breast Other Hypertension Kevin disease Social History Smoking Status: Current every day smoker tobacco type: e-cigarettes second hand exposure: No alcohol intake: current substance use type: denies use current occupational status: employed Travel in the last 8 weeks?: None housing: house current occupation: [employer] current occupational exposures/hazards: No caffeine: Yes Have you lived/traveled outside [place] in past 30 days?: No Contact w/someone who lives/traveled outside [place] past 30 days?: No Exposure to someone with infectious disease in past 14 days?: No Do you have a fever (greater than 100.4 F or 38 C)?: No Have you tested positive for COVID-19?: No Exposed to someone with COVID-19 in past 14 days?: No Do you have a sore throat?: No Do you have a cough?: No Do you have any weakness?: No Do you have any diarrhea?: No Are you experiencing any unusual bleeding?: No Do you have any muscle aches/pain?: No Do you have any abdominal pain?: No Are you experiencing loss of taste or smell?: No Other Medical History Have you received the Flu Vaccine for this season: No Have you received the Pneumonia Vaccine: No ROS Obtained: Yes Systems reviewed as appropriate & no additional complaints except as documented Per HPI Physical Exam General General appearance: alert and in no apparent distress Head Head exam: atraumatic and normocephalic Eye Eye exam: Present PERRL, EOMI, conjunctival injection (Redness of the right eye) and other (Tineo lamp exam with 1 mm corneal abrasion at the 9 o'clock position, lateral aspect of the cornea); Absent discharge or nystagmus Expanded Eye Exam Eyelids: bilateral: normal inspection Pupils: Bilateral: regular, round Sclera/Conjunctival: right: injection Anterior chamber: bilateral: normal inspection Visual acuity (R) = 20/: 40 Visual acuity (L) = 20/: 40 With correction: Yes IOP (R) in mmH IOP (L) in mmH IOP measured with: Tonopen ([facility] tonopen) ENT ENT exam: Present mucous membranes moist Neck Neck exam: Present normal inspection and full ROM Chest Chest inspection: Present symmetric chest wall rise Respiratory Respiratory exam: Absent respiratory distress or stridor Cardiovascular Cardiovascular exam: Present regular rate and normal rhythm Abdominal Exam Abdominal exam: Present soft; Absent distention or tenderness Extremities Exam Extremities exam: Present full ROM Neurological Exam Neurological exam: Present alert and oriented X3; Absent motor sensory deficit Psychiatric Psychiatric exam: Present normal affect and normal mood Skin Skin exam: Present warm and dry Medical Decision Making Medical Records Medical records reviewed: Yes I reviewed the patient's medical records. Screening: Per USPSTF and CDC recommendations, given the prevalence of disease in our region, it is our hospital?s policy to screen for HIV and viral Hepatitis for all patients aged 18 and over and those with ongoing risk factors. Angel Inquiry Pt receiving controlled substance: No Vital Signs: 07/25/25 22:56 07/25/25 23:27 07/25/25 23:42 Temperature 98.7 F 98.7 F Temperature Source Oral Oral Pulse Rate 84 Pulse Rate [Left] 90 Respiratory Rate 16 16 Blood Pressure 118/90 142/93 H Blood Pressure [Right Arm] 156/97 H Blood Pressure Mean [Right Arm] 116 Blood Pressure Source Manual Cuff/ Auscultation Automatic Cuff Blood Pressure Source [Right Arm] Automatic Cuff Blood Pressure Position Sitting Sitting Blood Pressure Position [Right Arm] Sitting 02 Sat by Pulse Oximetry 97 Oxygen Delivery Method Room Air Room Air Lab Data Lab Results 07/25/25 23:15: Urine Color Yellow, Urine Appearance Clear, Urine pH 6.0, Ur Specific [place] 1.026, Urine Protein Negative, Urine Glucose (UA) Negative, Urine Ketones Negative, Urine Blood Negative, Urine Nitrate Negative, Urine Bilirubin Negative, Urine Urobilinogen 0.2, Ur Leukocyte Esterase Negative, Urine RBC 3-5, Urine WBC 5-10, Ur Squamous Epith Cells 10-20, Urine Bacteria 1+, Urine Mucus 2+ Orders (Tests/Meds): ED MEDICATIONS Discontinued Medications Generic Name Dose Route Start Last Admin Trade Name Shara PRN Reason Stop Dose Admin Erythromycin 1 gm 07/25/25 23:14 07/25/25 23:20 Erythromycin Base 1 Gm Oint...G. OP 07/25/25 23:15 1 gm ONCE ONE Administration Eye Irrigation Solution 120 ml 07/25/25 23:14 07/25/25 23:20 Eye Wash Irrigation Soln 118ml Bottle OP 07/25/25 23:15 120 ml ONCE ONE Administration Fluorescein Sodium 1 mg 07/25/25 23:14 07/25/25 23:20 Fluorescein Sodium 1mg Strip OP 07/25/25 23:15 1 mg ONCE ONE Administration Tetracaine HCl 0 ml 07/25/25 23:14 07/25/25 23:20 Tetracaine 0.5% Opth Kristy 15ml OP 07/25/25 23:15 15 ml ONCE ONE Administration ORDERS Category Date Time Status Urinalysis and Microscopic Stat Lab 07/25/25 23:15 Completed Medical Decision Narrative: In summary, this 29-year-old female with comorbidities described in the HPI presents to the emergency department today with foreign body sensation in the right eye. On initial evaluation patient is hemodynamically stable, afebrile, GCS 15, overall well-appearing, patient was slightly hypertensive but manual blood pressure 118/90. She is more than 6 weeks and has never been diagnosed with preeclampsia and is already being managed by her PCP. Visual acuity with correction is at baseline, Tineo lamp exam after fluorescein and tetracaine demonstrate small corneal abrasion, I do not appreciate any foreign body or other abnormality of the eye. Normal IOP. Differential diagnosis includes but is not limited to foreign body, corneal abrasion, corneal ulcer, I also considered acute angle glaucoma but IOP is normal, among others. Patient received tetracaine and fluorescein and Tineo lamp exam only showed small corneal abrasion with no foreign body. Nonetheless I thoroughly flushed the eye with eyewash solution. After this patient reported no more foreign body sensation. The tetracaine has worn off and she feels a small scratch sensation but the eye is otherwise feeling improved and no more foreign body sensation. While I had not seen an obvious foreign body, it is possible that one was washed out with the flush. Erythromycin ointment applied for lubrication and comfort. Erythromycin provided to the patient. UA was obtained just to ensure no proteinuria though I do not suspect preeclampsia highly. UA negative for proteinuria, contaminated with squamous cells but no findings of infection. Patient was provided the erythromycin ointment and she and were given instructions on use of this. They were given instructions on continued symptomatic monitoring and management, continue home medication use, close follow-up, and return precautions for the ER. They indicated understanding and the patient was discharged in stable condition. Critical Care Critical Care Time Critical Care Time: No
[2025-07-25 23:20] LABS: Microscopic, Urine URINE MICROSCOPIC (MICROSCOPIC)
[2025-07-25] MEDS: TETRACAINE 0.5% OPTH SOL 15ML OP (23:20)
[2025-07-25] MEDS: FLUORESCEIN SODIUM 1MG STRIP 1 MG OP (23:20)
[2025-07-25] MEDS: EYE WASH IRRIGATION SOLN 118ML BOTTLE 120 ML OP (23:20)
[2025-07-25] MEDS: ERYTHROMYCIN BASE 1 GM OINT...G. OP (23:20)
[2025-07-25 23:22] LABS: Bilirubin,Urine Negative (Negative); Color,Urine YELLOW (Yellow); Glucose,Urine (UA) Negative (Negative); Ketones,Urine Negative (Negative); Leukocyte Esterase,Urine Negative (Negative); PH,Urine 6.0 (5.0-8.5); Protein,Urine Negative (Negative); Urobilinogen,Urine 0.2 EU/dl (0.2)
[2025-07-25 23:26] LABS: Specific Gravity, Urine 1.026 (1.005-1.030)
[2025-07-25 23:27] VITALS: BP 118/90
[2025-07-25 23:38] LABS: Bacteria,Urine 1+ /lpf; Mucus,Urine 2+ /lpf
[2025-07-25 23:42] VITALS: BP 142/93; PULSE 84; RESP 16; TEMP 37.1; O2SAT 98
== END 2025-07-25 23:44 | disposition home or self-care (01) ==
PROVIDERS: Emergency Provider Emergency Medicine; PCP Nurse Practitioner Family
DX: S05.01XA Injury of conjunctiva and corneal abrasion without foreign body, right eye, initial encounter (principal); I10 Essential (primary) hypertension; W44.9XXA Unspecified foreign body entering into or through a natural orifice, initial encounter; F17.210 Nicotine dependence, cigarettes, uncomplicated
CPT/HCPCS: 81001; 99284